=== PATIENT | female | born 1995 | race African-American/Black ===

== ENCOUNTER 2018-09-26 14:30 | Emergency (ER) | payer MEDICAID ==
[~2018-09-26] VITALS: Ht 172.7 cm; Wt 57.6 kg
[~2018-09-26 14:30] MED LIST: ACHD5005 PO; AGM875T PO; BCP; CONCERTA; CYCL10TA9 PO; CYCL5TAB PO; IBUP-1773 PO; MED FOR ACNE; NAPR-243 PO; NITR100C44 PO; ONDA8TAB13 PO; PRD20T PO; PREN1TAB19 PO
--- OUTSIDE RECORDS SUMMARY | 2018-09-26 14:37 | XMS REPORT ---
Author Author YAMINI DILL Organization [facility] Address [address] [place] [address] Care Team Providers Care Insurance Follow Up Specialist Name Role Phone YAMINI DILL Unavailable PROBLEMS Type Condition ICD9-CM Code UDS76-DD Code Onset Dates Condition Status SNOMED Code Problem Physical exam, pre-employment Z02.1 Active [id number] Problem Non-seasonal allergic rhinitis due to pollen J30.1 Active 17688107 Problem ADHD (attention deficit hyperactivity disorder), combined type F90.2 Active [id number] ALLERGIES No Information ENCOUNTERS Encounter Location Date Diagnosis [place] [id number] [place] [address] 19078- 5638 Mar, [place] [address] [place] [id number] [place] [address] 59081- 6567 Mar, Well woman exam with routine gynecological exam Z01.419 ; Screen for STD (sexually transmitted disease) Z11.3 ; Vaginal candidiasis B37.3 and High risk sexual behavior Z72.51 [place] [id number] [place] [address] 29106- 2001 Jan, Visit for TB skin test Z11.1 [facility] [address] [place] [id number] [place] [address] Jan, H. pylori infection A04.8 [place] [id number] [place] [address] 91031- 7396 Jan, Physical exam, pre-employment Z02.1 and Visit for TB skin test Z11.1 [place] [id number] [place] [address] 64037- 8879 Jan, Weight loss R63.4 [place] [address] [place] [id number] [place] [address] 63043- 3480 Jan, Weight loss R63.4 [place] [address] [place] [id number] [place] [address] 99407- 9167 Jan, Weight loss R63.4 ; Diarrhea, unspecified type R19.7 and Nausea R11.0 [place] [address] [place] [id number] [place] [address] 72600- 9725 Oct, Viral gastroenteritis A08.4 ; Fever, unspecified fever cause R50.9 ; Non-seasonal allergic rhinitis due to pollen J30.1 and Influenza A J10.1 [place] [address] [place] [id number] [place] [address] 24909- 2335 Dec, Ingrowing toenail with infection L60.0 [place] [address] [place] [id number] [place] [address] 11704- 6949 Nov, Ingrowing toenail with infection L60.0 [place] [address] [place] [id number] [place] [address] 80213- 2765 Nov, [place] [address] [place] [id number] [place] [address] 14421- 4678 Nov, [place] [address] [place] [id number] [place] [address] 66287- 5019 Nov, ADHD (attention deficit hyperactivity disorder), combined type F90.2 [facility] [id number] [place] [address] 05051 [address] Nov, Sore throat J02.9 and Acute nasopharyngitis (common cold) J00 [place] [address] [place] [id number] [place] [address] 07592- 2116 Oct, [place] [address] [address]- 3946 Aug, [place] [address] [place] [id number] [place] [address] 88664- 5364 Aug, Routine gynecological examination Z01.419 ; Nexplanon in place Z97.5 and Dysuria R30.0 [facility] [address] [address] 6[address] 09 Aug, 2016 [facility] [id number] [place] [address] 75006- 8909 Aug, [facility] [id number] [place] [address] 72336 -2207 Jul, Acute cystitis without hematuria N30.00 [facility] [address] [place] [address] [id number] [place] [address] 21692 -9657 18 Jun, 2016 Dysuria R30.0 and Acute cystitis with hematuria N30.01 [facility] [address] [place] [address] [id number] [place] [address] 66301- 0133 Jun, [facility] [address] [place] [id number] [place] [address] 97381 -7284 Jun, Vaginal yeast infection B37.3 [facility] [address] [place] [id number] [place] [address] 39304- 1186 May, [facility] [address] [place] [address] [id number] [place] [address] 54731 -9854 Apr, Infection B99.9 [facility] [address] [place] [address] 13482- 4499 Apr, [facility] [id number] [place] [address] 05988- 8888 Apr, [facility] [id number] [place] [address] 22186- 6773 Apr, [facility] [address] [place] [id number] [place] [address] 79458- 0079 Apr, [facility] [address] [place] [address] 45758- 1795 Mar, Ingrown toenail L60.0 [facility] [address] [place] [address] 91567- 2484 Mar, [facility] [address] [facility] [id number], [place] [address]- 6817 Mar, [facility] [address] [id number] [place] [address] Mar [facility] [address] [facility] [id number], [place] [address]- 4205 February, Ingrown right big toenail L60.0 [facility] [address] [facility] [id number], [place] [address]- 3553 February, [facility] [address] [facility] [id number], [place] [address]- 1705 February, [facility] [address] [place] [id number] [address]- 6831 February, Ingrowing right great toenail L60.0 and Overweight (BMI 25.0 -29.9) E66.3 [facility] [address] [id number], [place] [address]- 3054 February, [facility] [address] [facility] [id number], [place] [address]- 2252 February, [facility] [address] [id number] [place] [address] February [facility] [address] [id number] [place] [address] February [facility] [address] [facility] [id number], [place] [address]- 0268 Jan, [facility] [address] [facility] [id number], [place] [address]- 6797 Jan, [facility] [address] [facility] [id number], [place] [address]- 1451 Jan, [facility] [address] [place] [id number], [place] [address]- 9925 Jan, [facility] [address], [place] [address]- 9407 Dec, [facility] [id number] [place] [address] 93599- 9318 Dec, [facility] [address], [place] [address] Dec, Vaginal candidiasis B37.3 [facility] [id number] [id number] Dec, [facility] [id number] [place] [address] 99065- 5530 Dec, [facility] [address] [place] [id number] [place] [address] 48220- 6041 Dec, Encounter for test, result unknown Z32.00 [place] [address] [place] [address] 71154- 7096 Oct, Nail, ingrown L60.0 and Infected nailbed of toe L03.039 [facility] [address]65[address] [address]- 7272 Oct, [facility] [address] [place] [id number] [place] [address] 12001- 8546 Oct, [facility] [address], [place] [address]- 8728 Oct, [facility] [address], [place] [address]- 0679 16 Sep, 2015 [facility] [address] [id number] [place] [address] Sep [facility] [address] [id number] [place] [address] Sep [facility] [address] [place] [id number], [place] [address]- 4944 08 Sep, 2015 Frequent urination R35.0 ; Irregular menses N92.6 ; Abdominal cramping R10.9 ; Surveillance of implantable subdermal contraceptive Z30.49 ; Unprotected sexual intercourse Z72.51 and Vaginal itching L29.8 [facility] [address] [id number] [place] [address] Aug [facility] [address]65[address], [place] [address]- 7459 Aug, [facility] [id number] [place] [address] 70691- 4766 Aug, [facility] [address] [place] [id number] [place] [address] 89955- 4292 Jul, [facility] [address] [place] [address] 88219- 2085 Jul, [facility] [address] [place] [id number] [place] [address] 75164- 5452 Jul, Routine follow-up Z39.2 ; Vaginal itching L29.8 ; Leaking of urine R32 ; General counseling and advice for contraceptive management Z30.09 ; Change in vision H53.9 and Evaluation for contraceptive implant Z30.018 [facility] [address] [place] [address] 83487- 2773 Jul, [facility] [address] [place] [address] 48289- 1696 24 Jun, 2015 [facility] [address] [place] [address] 74785- 9988 Jun, [facility] [address], [place] [address]- 9285 16 Jun, 2015 [facility] [address] [place] [address] 74075- 8973 Jun, [facility] [address] [place] [id number] [place] [address] 50007- 6120 Jun, Cough 786.2 [facility] [id number] [place] [address] 02857- 0954 Jun, [facility] [address] [place] [id number] [place] [address] 13394- 7561 15 Jun, 2014 [facility] [address] [facility] [id number], [place] [address]- 5358 14 Jun, 2014 [facility] [address] [facility] [id number], [place] [address]- 3558 14 Jun, 2014 [facility] [address] [facility] [id number], [place] [address]- 2990 Jun, 2014 [facility] [address] [facility] [id number] [place] [address] 57597- 7133 Jun, 2014 [facility] [address] [facility] [id number] [place] [address] 74966- 5726 Jun, 2014 Supervision of normal first V22.0 [facility] [address], [place] [address]- 9089 Jun, 2014 [facility] [id number] [place] [address] 69464- 1046 Jun, 2014 [facility] [address], [place] [address]- 7114 Jun, Supervision of normal first V22.0 [facility] [address], [place] [address]- 3513 May, [facility] [address], [place] [address]- 6132 May, Supervision of normal first V22.0 [facility] [address], [place] [address]- 8665 May, Supervision of normal first V22.0 [facility] [address], [place] [address]- 3676 Apr, Supervision of normal first V22.0 [facility] [address] [place] [id number], [place] [address]- 9503 Apr, [facility] [address], [place] [address]- 6910 Apr, [facility] [address] [facility] [id number][place] 8597 Apr, Supervision of normal first V22.0 [facility] [address] [facility] [id number] [place] [address]- 7606 Apr, [facility] [address] [facility] [id number] [place] [address]- 2147 Apr, Supervision of normal first V22.0 [facility] [address] [id number] [place] [address]- 5222 Mar, [facility] [address] [facility] [id number] [place] [address]- 9263 Mar, Supervision of normal first V22.0 [facility] [address] [facility] [id number] [place] 1017 February, [facility] [address] [facility] [id number], [place] [address]- 3576 February, Supervision of normal first V22.0 [facility] [address] [facility] [id number] [place] [address]- 3680 Jan, [facility] [address] [facility] [id number], [place] [address]- 0225 Jan, [facility] [address] [facility] [id number], [place] [address]- 1985 Dec, [facility] [address] [facility] [id number], [place] [address]- 1244 Dec, [facility] [address] [id number], [place] [address]- 8233 Dec, [facility] [address] [facility] [id number], [place] [address]- 2880 Dec, [facility] [address] [facility] [id number], [place] [address]- 6012 Dec, [facility] [address] [id number] [place] [address]- 3706 16 Dec, 2014 [facility] [place] [facility] [address] [id number] [place] [address]- 2234 11 Dec, 2014 [facility] [place] [facility] [address] [id number] [place] [address]- 0251 11 Dec, 2014 [facility] [place] [facility] [address] [id number] [place] [address]- 7543 10 Dec, 2014 [facility] [place] [facility] [address] [id number] [place] [address]- 3127 10 Dec, 2014 [facility] [place] [facility] [address] [id number] [place] [address]- 4957 10 Dec, 2014 [facility] [place] [facility] [address] [id number] [place] [address]- 7255 10 Dec, 2014 [facility] [place] [facility] [address] [id number] [place] [address]- 9012 06 Dec, 2014 [facility] [place] [facility] [address] [id number] [place] [address]- 2640 Dec, [facility] [place] [facility] [address] [id number] [place] [address]- 1137 Dec, [facility] [place] [facility] [address] [facility] [id number] [place] [address]- 2454 27 Nov, 2014 [facility] [place] [facility] [address] [id number] [place] [address]- 2758 26 Nov, 2014 [facility] [place] [facility] [address] [id number] [place] [address]- 5932 Nov, 2014 [facility] [place] [facility] [address] [id number] [place] [address]- 1032 24 Nov, 2014 [facility] [place] [facility] [address] [id number] [place] [address]- 3309 24 Nov, 2014 [facility] [place] [facility] [address] [id number] [place] [address]- 2997 Nov, 2014 [facility] [place] [facility] [address] [facility] [id number] [place] [address]- 7701 Nov, [facility] [place] [facility] [address] [facility] [id number] [place] [address]- 4456 Nov, 2014 [facility] [place] [facility] [address] [facility] [id number] [place] [address]- 5748 Nov, 2014 [facility] [place] [facility] [address] [facility] [id number] [place] [address]- 1091 Nov, 2014 [facility] [place] [facility] [address] [facility] [id number] [place] [address]- 0893 Nov, [facility] [place] [facility] [address] [facility] [id number] [place] [address]- 5962 Nov, [facility] [place] [facility] [address] [id number] [place] [address]- 6189 Oct, [facility] [place] [facility] [address] [facility] [id number] [place] [address]- 6514 Oct, [facility] [place] [facility] [address] [id number] [place] [address]- 2230 Oct, [facility] [place] [facility] [address] [facility] [id number] [place] [address]- 2308 Oct, [facility] [place] [facility] [address] [facility] [id number] [place] [address]- 9633 Oct, [facility] [place] [facility] [address] [facility] [id number] [place] [address]- 9542 Oct, [facility] [place] [facility] [address] [facility] [id number] [place] [address]- 6332 Sep, [facility] [place] [facility] [address] [facility] [id number] [place] [address]- 5928 Sep, [facility] [place] [facility] [address] [facility] [id number] [place] [address]- 4850 Sep, [facility] [place] [facility] [address] [id number] [place] [address]- 6393 17 Sep, 2014 [facility] [place] [facility] [address] [id number] [place] 4271 Sep, [facility] [place] [facility] [address] [id number] [place] 3816 Sep, [facility] [place] [facility] [address] [id number] [place] [address]- 6037 Sep, [facility] [place] [facility] [address] [id number] [place] 8700 Sep, [facility] [place] [facility] [address] [id number] [place] [address]- 5349 Aug, [facility] [place] [facility] [address] [id number] [place] [address]- 3418 Aug, [facility] [place] [facility] [address] [id number] [place] [address]- 2435 Aug, [facility] [place] [facility] [address] [id number] [place] [address]- 7197 Aug, [facility] [place] [facility] [address] [id number] [place] [address]- 4783 Jul, [facility] [place] [facility] [address] [facility] [id number] [place] [address]- 8129 Jul, [facility] [place] [facility] [address] [id number] [place] [address]- 9358 Jul, [facility] [place] [facility] [address] [id number] [place] [address]- 1525 30 Jun, 2014 [facility] [place] [facility] [address] [id number] [place] [address]- 0106 30 Jun, 2014 [facility] [place] [facility] [address] [id number] [place] [address]- 9854 24 Jun, 2014 [facility] [place] [facility] [address] [id number] [place] [address]- 2447 24 Jun, 2013 [facility] [place] [facility] [address] [id number] [place] [address]- 1776 18 Jun, 2013 [facility] [place] [facility] [address] [id number] [place] [address]- 5402 18 Jun, 2014 [facility] [place] [facility] [address] [id number] [place] [address]- 7760 15 Jun, 2014 [facility] [place] [facility] [address] [id number] [place] [address]- 2774 15 Jun, 2013 [facility] [place] [facility] [address] [id number] [place] [address]- 1839 12 Jun, 2014 [facility] [place] [facility] [address] [id number] [place] [address]- 4059 11 Jun, 2014 [facility] [place] [facility] [address] [id number] [place] [address]- 7970 10 Jun, 2014 [facility] [place] [facility] [address] [id number] [place] [address]- 9547 08 Jun, 2014 [facility] [place] [facility] [address] [id number] [place] [address]- 0605 08 Jun, 2014 [facility] [place] [facility] [address] [id number] [place] [address]- 6140 May, [facility] [place] [facility] [address] [id number] [place] [address]- 7548 May, [facility] [place] [facility] [address] [id number] [place] [address]- 7846 May, [facility] [place] [facility] [address] [id number] [place] [address]- 4821 May, [facility] [place] [facility] [address] [id number] [place] [address]- 2677 May, [facility] [place] [facility] [address] [id number] [place] [address]- 7143 Apr, [facility] [place] [facility] [address] [id number] [place] [address]- 9919 Apr, [facility] [place] [facility] [address] [id number] [place] [address]- 3136 Apr, [facility] [place] [facility] [address] [id number] [place] [address]- 5166 Apr, [facility] [place] [facility] [address] [id number] [place] [address]- 2103 Apr, [facility] [place] [facility] [address] [id number] [place] [address]- 6545 Apr, [facility] [place] [facility] [address] [id number] [place] [address] Apr, [facility] [place] [facility] [address] [id number] [place] [address] Apr, [facility] [place] [facility] [address] [id number] [place] [address] Apr, [facility] [place] [facility] [address] [id number] [place] [address] Apr, [facility] [place] [facility] [address] [id number] [place] [address] Apr, [facility] [place] [facility] [address] [id number] [place] [address] Apr, [facility] [place] [facility] [address] [id number] [place] [address] Apr, [facility] [place] [facility] [address] [id number] [place] [address] Apr, [facility] [place] [facility] [address] [id number] [place] [address]- [address] Apr, [facility] [place] [facility] [address] [id number] [place] [address]- [address] Apr, [facility] [place] [facility] [address] [id number] [place] [address] Apr, [facility] [place] [facility] [address] [id number] [place] [address] Apr, [facility] [place] [facility] [address] [id number] [place] [address] Apr, [facility] [place] [facility] [address] [id number] [place] [address] 79[address] Mar, [facility] [place] [facility] [address] [id number] [place] [address]- [address] Mar, [facility] [place] [facility] [address] [id number] [place] [address]40 Mar, [facility] [place] [facility] [address] [id number] [place] [address] 8095 Mar, [facility] [place] [facility] [address] [id number] [place] [address]- [address] Mar, [facility] [place] [facility] [address] [id number] [place] [address] 69[address] Mar, [facility] [place] [facility] [address] [id number] [place] [address]- [address] Mar, [facility] [place] [facility] [address] [id number] [place] [address]- [address] Mar, [facility] [place] [facility] [address] [id number] [place] [address]- [address] Mar, [facility] [place] [facility] [address] [id number] [place] [address]- [address] Mar, [facility] [place] [facility] [address] [id number] [place] [address]- [address] Mar, [facility] [place] [facility] [address] [id number] [place] [address]- [address] Mar, [facility] [place] [facility] [address] [id number] [place] [address]- [address] Mar, [facility] [place] [facility] [address] [id number] [place] [address]- [address] Mar, [facility] [place] [facility] [address] [id number] [place] [address] Mar, [facility] [place] [facility] [address] [id number] [place] [address] February, [facility] [place] [facility] [address] [id number] [place] [address]- [address] February, [facility] [place] [facility] [address] [id number] [place] [address]- [address] February, [facility] [place] [facility] [address] [id number] [place] [address] February, [facility] [place] [facility] [address] [id number] [place] [address]- [address] February, [facility] [place] [facility] [address] [id number] [place] [address]- [address] February, [facility] [place] [facility] [address] [id number] [place] [address]- [address] February, [facility] [place] [facility] [address] [id number] [place] [address] February, [facility] [place] [facility] [address] [id number] [place] [address]- [address] February, [facility] [place] [facility] [address] [id number] [place] [address] February, [facility] [place] [facility] [address] [id number] [place] [address]- [address] Jan, [facility] [place] [facility] [address] [id number] [place] [address]- [address] Jan, [facility] [place] [facility] [address] [id number] [place] [address]- [address] Jan, [facility] [place] [facility] [address] [id number] [place] [address]- [address] Jan, [facility] [place] [facility] [address] [id number] [place] [address]- [address] Jan, [facility] [address] [id number] [place] [address]- [address] Jan, [facility] [address] [id number] [place] [address]- [address] Dec, [facility] [address] [id number] [place] [address]- 74[address] Dec, [facility] [address] [id number] [place] [address]- [address] Oct, [facility] [address] [id number] [place] [address]- [address] Oct, [facility] [address] [id number] [place] [address]- [address] Sep, [facility] [address] [id number] [place] [address] Sep, [facility] [address] [address] [id number] [place] [address] Sep, [facility] [address] [id number] [place] [address] Sep, [facility] [address] [facility] [id number] [place] [address] Sep, [facility] [address] [id number] [place] [address] Aug, [facility] [address] [id number] [place] [address] Aug, [facility] [place] [facility] [address] [id number] [place] [address] Aug, [facility] [place] [facility] [address] [id number] [place] [address] Aug, [facility] [address] [id number] [place] [address] Aug, [facility] [place] [facility] [address] [id number] [place] [address] Aug, [facility] [place] [facility] [address] [id number] [place] [address] Aug, [facility] [place] [facility] [address] [id number] [place] [address] Aug, [facility] [place] [facility] [address] [id number] [place] [address] Aug, [facility] [place] [facility] [address] [id number] [place] [address] Aug, [facility] [place] [facility] [address] [id number] [place] [address] Aug, [facility] [place] [facility] [address] [id number] [place] [address] Jul, [facility] [place] [facility] [address] [id number] [place] [address] Jul, [facility] [place] [facility] [address] [id number] [place] [address] Jul, [facility] [place] [facility] [address] [id number], [place] [address] Jul, [facility] [place] [facility] [address] [id number], [place] [address] February, [facility] [place] [facility] [address] [id number], [place] [address] Jan, [facility] [place] [facility] [address] [id number] [place] [address] 18 Jan, 2013 [facility] [place] [facility] [address] [id number], [place] [address] Jan, [facility] [place] [facility] [address] [id number], [place] [address] 31 Dec, 2012 [facility] [place] [facility] [address] [id number], [place] [address] 30 Dec, 2012 [facility] [address] [id number] [place] [address] 28 Dec, 2012 [facility] [place] [facility] [address] [id number] [place] [address] 25 Dec, 2012 [facility] [place] [facility] [address] [id number] [place] [address] 05 Dec, 2012 [facility] [place] [facility] [address] [id number] [place] [address] 31 Oct, 2012 [facility] [place] [facility] [address] [id number] [place] [address] 30 Oct, 2012 [facility] [place] [facility] [address] [id number] [place] [address] Oct, [facility] [address] [facility] [id number] [place] [address] Oct, [facility] [place] [facility] [address] [id number] [place] [address] 15 Sep, 2012 [facility] [address] [id number] [place] [address] Sep, [facility] [place] [facility] [address] [facility] [id number] [place] [address] Sep, [facility] [place] [facility] [address] [id number] [place] [address] Aug, [facility] [place] [facility] [address] [id number] [place] [address] Aug, [facility] [place] [facility] [address] [id number] [place] [address] Aug, [facility] [place] [facility] [address] [id number] [place] [address] Aug, [facility] [place] [facility] [address] [facility] [id number] [place] [address] Aug, [facility] [place] [facility] [address] [facility] [id number], [place] [address] Jul, [facility] [address] [facility] [id number], [place] [address] Jul, [facility] [address] [facility] [id number], [place] [address] Jul, [facility] [address] [facility] [id number], [place] [address] Jul, [facility] [address] [facility] [id number], [place] [address] Jul, [facility] [id number], [place] [address] Jul, [facility] [address] [id number], [place] [address] Dec, [facility] [id number], [place] [address] Dec, [facility] [id number], [place] [address] 16 Jun, 2009 [facility] [id number], [place] [address] Mar, [facility] [address] [id number], [place] [address] 10 Jun, 2008 IMMUNIZATIONS No Known Immunizations SOCIAL HISTORY Never Assessed REASON FOR VISIT PLAN OF CARE VITAL SIGNS MEDICATIONS Unknown Medications RESULTS No Results PROCEDURES No Known procedures INSTRUCTIONS MEDICATIONS ADMINISTERED No Known Medications MEDICAL (GENERAL) HISTORY Type Description Date Medical History High risk sexual behavior Medical History attention deficit hyperactivity disorder Surgical History tonsillectomy Surgical History tubes in ears Surgical History Dental Sugery Hospitalization History childbirth only
--- OUTSIDE RECORDS SUMMARY | 2018-09-26 14:37 | XMS REPORT ---
Author Author LES DANIEL [facility] Address [address] [place] [address] Care Team Providers Care Documentation Supervisor Name Role Phone SOFIA SALDANAY Unavailable PROBLEMS Type Condition ICD9-CM Code [id number] Code Onset Dates Condition Status SNOMED Code Problem Physical exam, pre-employment Z02.1 Active 160673348 Problem Non-seasonal allergic rhinitis due to pollen J30.1 Active 83095438 Problem ADHD (attention deficit hyperactivity disorder), combined type F90.2 Active [id number] ALLERGIES No Information ENCOUNTERS Encounter Location Date Diagnosis [id number] [place] [address]57- 8554 Aug, [id number] [place] [address] 27347- 8754 Mar, [place] [id number] [place] [address] 60795- 7715 Mar, Well woman exam with routine gynecological exam Z01.419 ; Screen for STD (sexually transmitted disease) Z11.3 ; Vaginal candidiasis B37.3 and High risk sexual behavior Z72.51 [id number] [place] [address] 30696- 4151 Jan, Visit for TB skin test Z11.1 [facility] [id number] [place] [address] Jan, H. pylori infection A04.8 [id number] [place] [address] 29465- 2081 Jan, Physical exam, pre-employment Z02.1 and Visit for TB skin test Z11.1 [place] [id number] [place] [address] 10931- 0950 Jan, Weight loss R63.4 [place] [address] [place] [id number] [place] [address] 84859- 7339 Jan, Weight loss R63.4 [place] [address] [address]- 1017 Jan, Weight loss R63.4 ; Diarrhea, unspecified type R19.7 and Nausea R11.0 [place] [address] 59245- 9710 Oct, Viral gastroenteritis A08.4 ; Fever, unspecified fever cause R50.9 ; Non-seasonal allergic rhinitis due to pollen J30.1 and Influenza A J10.1 [place] [address] [place] [id number] [place] [address] 34742- 4917 Dec, Ingrowing toenail with infection L60.0 [place] [address] 17105- 1398 Nov, Ingrowing toenail with infection L60.0 [place] [address] [place] [id number] [place] [address] 76020- 0960 Nov, [place] [address] [place] [id number] [place] [address] 75695- 1959 Nov, [place] [address] [place] [id number] [place] [address] 44851- 7466 Nov, ADHD (attention deficit hyperactivity disorder), combined type F90.2 [facility] [id number] [place] [address] Nov, Sore throat J02.9 and Acute nasopharyngitis (common cold) J00 [place] [address] [place] [id number] [place] [address] 38151- 8334 Oct, [place] [address] [place] [id number] [place] [address] 18918- 9147 Aug, [place] [address] [place] [id number] [place] [address] 96065- 5543 17 Aug, 2016 Routine gynecological examination Z01.419 ; Nexplanon in place Z97.5 and Dysuria R30.0 [facility] [id number] [place] [address] 43254- 4958 09 Aug, 2016 [facility] [id number] [place] [address] 70229- 6546 Aug, [facility] [id number] [place] [address] 03848 -6894 Jul, Acute cystitis without hematuria N30.00 [facility] [address] [address]758 -3886 18 Jun, 2016 Dysuria R30.0 and Acute cystitis with hematuria N30.01 [facility] [id number] [place] [address] 79147- 3376 14 Jun, 2016 [facility] [address] [id number] [place] [address] 33605 -4423 Jun, Vaginal yeast infection B37.3 [place] [address] [place] [id number] [place] [address] 06453- 1683 May, [facility] [id number] [place] [address] 07276 -1255 Apr, Infection B99.9 [facility] [address] [place] [address] [id number] [place] [address] 19261- 9654 Apr, [facility] [id number] [place] [address] 61796- 4170 Apr, [facility] [address] [place] [address] [id number] [place] [address] 56767- 6857 Apr, [facility] [address] [place] [address] [id number] [place] [address] 02558- 0097 Apr, [facility] [address] [place] [address] [id number] [place] [address] 12903- 5156 Mar, Ingrown toenail L60.0 [facility] [address] [address]- 3186 Mar, [facility] [address], [place] [address]- 1380 Mar, [facility] [address] [id number] [place] [address] Mar [facility] [address], [place] [address]- 3469 February, Ingrown right big toenail L60.0 [facility] [address], [place] [address]- 6675 February, [facility] [address], [place] [address]- 8748 February, [facility] [address], [place] [address]- 6623 February, Ingrowing right great toenail L60.0 and Overweight (BMI 25.0 -29.9) E66.3 [facility] [address], [place] [address]- 5329 February, [facility] [address], [place] [address]- 3523 February, [facility] [address] [id number] [place] [address] February [facility] [address] [id number] [place] [address] February [facility] [id number] [address]- 2860 Jan, [facility] [address], [place] [address]- 7409 Jan, [facility] [id number], [place] [address]- 8187 Jan, [facility] [id number] [address]- 5056 Jan, [facility] [address], [place] [address]- 4133 Dec, [facility] [address], [place] [address]- 4369 Dec, [facility] [id number] [place] [address] 31291 -1369 Dec, Vaginal candidiasis B37.3 [facility] [id number] [place] [id number] Dec, [facility] [address] [id number] [place] [address] 79981- 5710 Dec, [facility] [id number] [place] [address] 99575- 7280 Dec, Encounter for test, result unknown Z32.00 [facility] [id number] [place] [address] 54947- 1088 Oct, Nail, ingrown L60.0 and Infected nailbed of toe L03.039 [facility] [id number] [place] [address] 11346- 2728 Oct, [facility] [id number] [place] [address] 57859- 5408 Oct, [facility] [address], [place] [address]- 5240 Oct, [facility] [address], [place] [address]- 9732 16 Sep, 2015 [facility] [address] [id number] [place] [address] Sep [facility] [address] [id number] [place] [address] Sep [facility] [address], [place] [address]- 1062 08 Sep, 2015 Frequent urination R35.0 ; Irregular menses N92.6 ; Abdominal cramping R10.9 ; Surveillance of implantable subdermal contraceptive Z30.49 ; Unprotected sexual intercourse Z72.51 and Vaginal itching L29.8 [facility] [address] [id number] [place] [address] Aug [facility] [id number] [place] [address] 06177- 0692 Aug, [facility] [address] [id number] [place] [address] 77661- 9966 Aug, [facility] [id number] [place] [address] 79541- 7841 Jul, [facility] [address] [address] [id number] [place] [address] 03300- 9810 Jul, [facility] [address] [address] [id number] [place] [address] 30909- 0828 Jul, Routine follow-up Z39.2 ; Vaginal itching L29.8 ; Leaking of urine R32 ; General counseling and advice for contraceptive management Z30.09 ; Change in vision H53.9 and Evaluation for contraceptive implant Z30.018 [facility] [id number] [place] [address] 96444- 7775 Jul, [facility] [address], [place] [address]- 1971 Jun, [facility] [id number] [place] [address] 47799- 9259 Jun, [facility] [id number] [place] [address] 91561- 1970 Jun, [facility] [address] [id number] [place] [address] 37677- 2039 Jun, [facility] [id number] [place] [address] 81425- 4696 Jun, Cough 786.2 [facility] [address] [place] [id number] [place] [address] 95246- 0792 15 Jun, 2014 [facility] [address] [facility] [id number], [place] [address]- 2044 15 Jun, 2014 [facility] [address] [facility] [id number], [place] [address]- 6023 14 Jun, 2014 [facility] [address] [facility] [id number], [place] [address]- 2828 14 Jun, 2014 [facility] [address] [facility] [id number] [address]- 2087 11 Jun, 2014 [facility] [address] [facility] [id number] [place] [address] 24446- 0007 Jun, 2014 [facility] [id number], [place] [address]- 7852 Jun, 2014 Supervision of normal first V22.0 [facility] [address], [place] [address]- 8214 Jun, 2014 [facility] [address] [facility] [id number], [place] [address]- 8087 Jun, 2014 [facility] [address], [place] [address]- 6301 Jun, Supervision of normal first V22.0 [facility] [address], [place] [address]- 9890 May, [facility] [id number], [place] [address]- 7372 May, Supervision of normal first V22.0 [facility] [id number] [address]- 8647 May, Supervision of normal first V22.0 [facility] [id number], [place] [address]- 9261 Apr, Supervision of normal first V22.0 [facility] [id number], [place] [address]- 4908 Apr, [facility] [address] [facility] [id number], [place] [address]- 5108 Apr, [facility] [address] [facility] [id number] 4273 Apr, Supervision of normal first V22.0 [facility] [address] [facility] [id number] [place] [address]- 0600 Apr, [facility] [address] [facility] [id number], [place] [address]- 9255 Apr, Supervision of normal first V22.0 [facility] [address] [id number] [place] [address]- 4920 Mar, [facility] [address] [facility] [id number][place] 7031 Mar, Supervision of normal first V22.0 [facility] [address] [facility] [id number], [place] [address]- 2659 February, [facility] [address] [facility] [id number], [place] [address]- 8838 February, Supervision of normal first V22.0 [facility] [address] [facility] [id number] 6855 Jan, [facility] [address] [facility] [id number], [place] [address]- 5731 Jan, [facility] [address] [facility] [id number], [place] [address]- 3334 Dec, [facility] [address] [id number]- 8106 Dec, [facility] [address] [facility] [id number]27[place]- 7235 Dec, [facility] [address] [facility] [id number], [place] [address]- 8273 Dec, [facility] [place] [facility] [address] [id number] [place] [address]- 3076 16 Dec, 2014 [facility] [place] [facility] [address] [id number] [place] [address]- 4255 16 Dec, 2014 [facility] [place] [facility] [address] [id number] [place] [address]- 0985 11 Dec, 2014 [facility] [place] [facility] [address] [id number] [place] [address]- 4714 11 Dec, 2014 [facility] [place] [facility] [address] [id number] [place] [address]- 1443 10 Dec, 2014 [facility] [place] [facility] [address] [id number] [place] [address]- 3584 10 Dec, 2014 [facility] [place] [facility] [address] [id number] [place] [address]- 2456 10 Dec, 2014 [facility] [place] [facility] [address] [id number] [place] [address]- 6016 10 Dec, 2014 [facility] [place] [facility] [address] [id number] [place] [address]- 0662 06 Dec, 2014 [facility] [place] [facility] [address] [id number] [place] [address]- 6383 Dec, [facility] [place] [facility] [address] [id number] [place] [address]- 6605 Dec, [facility] [place] [facility] [address] [id number] [place] [address]- 4201 27 Nov, 2014 [facility] [place] [facility] [address] [id number] [place] [address]- 4425 Nov, 2014 [facility] [place] [facility] [address] [id number] [place] [address]- 1892 Nov, [facility] [place] [facility] [address] [id number] [place] [address]- 1356 24 Nov, 2014 [facility] [place] [facility] [address] [id number] [place] [address]- 3053 Nov, [facility] [place] [facility] [address] [id number] [place] [address]- 3492 Nov, [facility] [place] [facility] [address] [facility] [id number] [place] [address]- 3786 Nov, 2014 [facility] [place] [facility] [address] [facility] [id number] [place] [address]- 0991 Nov, 2014 [facility] [place] [facility] [address] [facility] [id number] [place] [address]- 1750 Nov, 2014 [facility] [place] [facility] [address] [id number] [place] [address]- 6154 Nov, [facility] [place] [facility] [address] [facility] [id number] [place] [address]- 6523 Nov, [facility] [place] [facility] [address] [facility] [id number] [place] [address]- 7037 Nov, [facility] [place] [facility] [address] [facility] [id number] [place] [address]- 0212 Oct, [facility] [place] [facility] [address] [facility] [id number] [place] [address]- 0141 Oct, [facility] [place] [facility] [address] [facility] [id number] [place] [address]- 5012 Oct, [facility] [place] [facility] [address] [facility] [id number] [place] [address]- 1575 Oct, [facility] [place] [facility] [address] [facility] [id number], [place] [address]- 8613 Oct, [facility] [place] [facility] [address] [facility] [id number], [place] [address]- 0273 Oct, [facility] [place] [facility] [address] [facility] [id number] [place] [address]- 2396 Sep, [facility] [place] [facility] [address] [facility] [id number], [place] [address]- 6502 Sep, [facility] [place] [facility] [address] [id number] [place] [address]- 5603 18 Sep, 2014 [facility] [place] [facility] [address] [id number] [place] 9216 Sep, [facility] [place] [facility] [address] [id number] [place]- 6696 Sep, [facility] [place] [facility] [address] [id number] [place] [address]- 7996 Sep, [facility] [place] [facility] [address] [id number] [place] 8252 Sep, [facility] [place] [facility] [address] [id number] [place] [address]- 1669 Sep, [facility] [place] [facility] [address] [id number] [place] [address]- 9613 Aug, [facility] [place] [facility] [address] [id number] [place] [address]- 8142 Aug, [facility] [place] [facility] [address] [id number] [place] [address]- 1387 Aug, [facility] [place] [facility] [address] [id number] [place] [address]- 7867 Aug, [facility] [place] [facility] [address] [id number] [place] [address]- 8915 Jul, [facility] [place] [facility] [address] [id number] [place] [address]- 8484 Jul, [facility] [place] [facility] [address] [id number] [place] [address]- 7779 Jul, [facility] [place] [facility] [address] [id number] [place] [address]- 1606 Jun, [facility] [place] [facility] [address] [id number] [place] [address]- 2154 30 Jun, 2014 [facility] [place] [facility] [address] [id number] [place] [address]- 5035 24 Jun, 2013 [facility] [place] [facility] [address] [id number] [place] [address]- 0341 24 Jun, 2013 [facility] [place] [facility] [address] [id number] [place] [address]- 2861 18 Jun, 2013 [facility] [place] [facility] [address] [id number] [place] [address]- 5673 18 Jun, 2013 [facility] [place] [facility] [address] [id number] [place] [address]- 5965 15 Jun, 2013 [facility] [place] [facility] [address] [id number] [place] [address]- 3568 15 Jun, 2013 [facility] [place] [facility] [address] [id number] [place] [address]- 1920 12 Jun, 2013 [facility] [place] [facility] [address] [id number] [place] [address]- 7094 11 Jun, 2013 [facility] [place] [facility] [address] [id number] [place] [address]- 7932 10 Jun, 2013 [facility] [place] [facility] [address] [id number] [place] [address]- 3606 08 Jun, 2013 [facility] [place] [facility] [address] [id number] [place] [address]- 3217 08 Jun, 2014 [facility] [place] [facility] [address] [id number], [place] [address]- 4961 20 May, 2014 [facility] [place] [facility] [address] [id number], [place] [address]- 4672 May, [facility] [place] [facility] [address] [id number] [place] [address]- 3753 May, [facility] [place] [facility] [address] [id number] [place] [address]- 1127 May, [facility] [place] [facility] [address] [id number] [place] [address]- 6209 May, [facility] [place] [facility] [address] [id number] [place] [address]- 0988 Apr, [facility] [place] [facility] [address] [id number] [place] [address]- 4826 Apr, [facility] [place] [facility] [address] [id number] [place] [address]- 7656 Apr, [facility] [place] [facility] [address] [id number] [place] [address]- 0465 Apr, [facility] [place] [facility] [address] [id number] [place] [address] Apr, [facility] [place] [facility] [address] [id number] [place] [address] Apr, [facility] [place] [facility] [address] [id number] [place] [address] Apr, [facility] [place] [facility] [address] [id number] [place] [address] Apr, [facility] [place] [facility] [address] [id number] [place] [address] Apr, [facility] [place] [facility] [address] [id number] [place] [address] Apr, [facility] [place] [facility] [address] [id number] [place] [address] Apr, [facility] [place] [facility] [address] [id number] [place] [address] Apr, [facility] [place] [facility] [address] [id number] [place] [address] Apr, [facility] [place] [facility] [address] [id number] [place] [address] Apr, [facility] [place] [facility] [address] [id number] [place] [address]- [address] Apr, [facility] [place] [facility] [address] [id number] [place] [address] Apr, [facility] [place] [facility] [address] [id number] [place] [address] Apr, [facility] [place] [facility] [address] [id number] [place] [address] Apr, [facility] [place] [facility] [address] [id number] [place] [address]- [address] Apr, [facility] [place] [facility] [address] [id number] [place] [address] Mar, [facility] [place] [facility] [address] [id number] [place] [address] Mar, [facility] [place] [facility] [address] [id number] [place] [address] Mar, [facility] [place] [facility] [address] [id number] [place] [address]- 67[address] Mar, [facility] [place] [facility] [address] [id number] [place] [address]- 7064 Mar, [facility] [place] [facility] [address] [id number] [place] [address] Mar, [facility] [place] [facility] [address] [id number] [place] [address]69 Mar, [facility] [place] [facility] [address] [id number] [place] [address] Mar, [facility] [place] [facility] [address] [id number] [place] [address]- [address] Mar, [facility] [place] [facility] [address] [id number] [place] [address] Mar, [facility] [place] [facility] [address] [id number] [place] [address]- 47[address] Mar, [facility] [place] [facility] [address] [id number] [place] [address]- [address] Mar, [facility] [place] [facility] [address] [id number] [place] [address]- [address] Mar, [facility] [place] [facility] [address] [id number] [place] [address] Mar, [facility] [place] [facility] [address] [id number] [place] [address] Mar, [facility] [place] [facility] [address] [id number] [place] [address] February, [facility] [place] [facility] [address] [id number] [place] [address]- [address] February, [facility] [place] [facility] [address] [id number] [place] [address]- 115[address] February, [facility] [place] [facility] [address] [id number] [place] [address] February, [facility] [place] [facility] [address] [id number] [place] [address] February, [facility] [place] [facility] [address] [id number] [place] [address] February, [facility] [place] [facility] [address] [id number] [place] [address]- [address] February, [facility] [place] [facility] [address] [id number] [place] [address]- [address] February, [facility] [place] [facility] [address] [id number] [place] [address] February, [facility] [place] [facility] [address] [id number] [place] [address]- [address] February, [facility] [place] [facility] [address] [id number] [place] [address]- [address] Jan, [facility] [place] [facility] [address] [id number] [place] [address]- [address] Jan, [facility] [place] [facility] [address] [id number] [place] [address] Jan, [facility] [place] [facility] [address] [id number] [place] [address]- [address] Jan, [facility] [address] [id number] [place] [address] Jan, [facility] [place] [facility] [address] [id number] [place] [address]- [address] Jan, [facility] [address] [id number] [place] [address] 84[address] Dec, [facility] [place] [facility] [address] [id number] [place] [address] Dec, [facility] [address] [id number] [place] [address] Oct, [facility] [address] [id number] [place] [address] Oct, [facility] [address] [id number] [place] [address] Sep, [facility] [address] [id number] [place] [address] Sep, [facility] [address] [id number] [place] [address] Sep, [facility] [address] [id number] [place] [address] Sep, [facility] [address] [id number] [place] [address] Sep, [facility] [address] [id number] [place] [address] Aug, [facility] [place] [facility] [address] [id number] [place] [address] Aug, [facility] [place] [facility] [address] [id number] [place] [address] Aug, [facility] [place] [facility] [address] [id number] [place] [address] Aug, [facility] [place] [facility] [address] [id number] [place] [address] Aug, [facility] [place] [facility] [address] [id number] [place] [address] Aug, [facility] [place] [facility] [address] [id number] [place] [address] Aug, [facility] [place] [facility] [address] [id number] [place] [address] Aug, [facility] [place] [facility] [address] [id number] [place] [address] Aug, [facility] [place] [facility] [address] [id number] [place] [address] Aug, [facility] [place] [facility] [address] [id number] [place] [address] Aug, [facility] [place] [facility] [address] [id number] [place] [address] Jul, [facility] [place] [facility] [address] [id number] [place] [address] Jul, [facility] [place] [facility] [address] [id number] [place] [address] Jul, [facility] [place] [facility] [address] [id number] [place] [address] Jul, [facility] [place] [facility] [address] [id number], [place] [address] February, [facility] [place] [facility] [address] [id number] [place] [address] Jan, [facility] [place] [facility] [address] [id number] [place] [address] 18 Jan, 2013 [facility] [place] [facility] [address] [id number] [place] [address] Jan, [facility] [place] [facility] [address] [id number] [place] [address] 31 Dec, 2012 [facility] [address] [id number] [place] [address] 30 Dec, 2012 [facility] [address] [id number] [place] [address] 28 Dec, 2012 [facility] [address] [id number] [place] [address] 25 Dec, 2012 [facility] [address] [id number] [place] [address] 05 Dec, 2012 [facility] [address] [id number] [place] [address] 31 Oct, 2012 [facility] [address] [id number] [place] [address] Oct, [facility] [address] [id number] [place] [address] Oct, [facility] [address] [id number] [place] [address] Oct, [facility] [address] [id number] [place] [address] Sep, [facility] [address] [id number] [place] [address] Sep, [facility] [address] [id number] [place] [address] Sep, [facility] [place] [facility] [address] [id number] [place] [address] Aug, [facility] [place] [facility] [address] [id number] [place] [address] Aug, [facility] [place] [facility] [address] [id number] [place] [address] Aug, [facility] [address] [id number] [place] [address] Aug, [facility] [place] [facility] [address] [facility] [id number], [place] [address] Aug, [facility] [address] [facility] [id number], [place] [address] Jul, [facility] [address] [facility] [id number], [place] [address] Jul, [facility] [address] [facility] [id number], [place] [address] Jul, [facility] [address] [facility] [id number][place] [address] Jul, [facility] [id number] [address] Jul, [facility] [id number] [address] [address] Jul, [facility] [id number], [place] [address] Dec, [facility] [id number], [place] [address] Dec, [facility] [id number], [place] [address] 16 Jun, 2009 [facility] [id number], [place] [address] Mar, [facility] [id number], [place] [address] 10 Jun, 2008 IMMUNIZATIONS No Known Immunizations [...]
--- OUTSIDE RECORDS SUMMARY | 2018-09-26 14:38 | XMS REPORT ---
Author AZAM Booth [facility] Address [address] [place] [address] Care Team Providers Care Chromium Plater Name Role Phone LALO AZAM Unavailable PROBLEMS Type Condition ICD9-CM Code [id number] Code Onset Dates Condition Status SNOMED Code Problem Physical exam, pre-employment Z02.1 Active [id number] Problem Non-seasonal allergic rhinitis due to pollen J30.1 Active 99328127 Problem ADHD (attention deficit hyperactivity disorder), combined type F90.2 Active [id number] ALLERGIES No Information ENCOUNTERS Encounter Location Date Diagnosis [id number] [place] [address] 71859- 6511 Mar, [place] [id number] [place] [address] 80820- 6785 Mar, Well woman exam with routine gynecological exam Z01.419 ; Screen for STD (sexually transmitted disease) Z11.3 ; Vaginal candidiasis B37.3 and High risk sexual behavior Z72.51 [id number] [place] [address] 09813- 0610 Jan, Visit for TB skin test Z11.1 [facility] [id number] [place] [address] Jan, H. pylori infection A04.8 [address] [address] Jan, Physical exam, pre-employment Z02.1 and Visit for TB skin test Z11.1 [place] [id number] [place] [address] 93398- 7834 Jan, Weight loss R63.4 [place] [id number] [place] [address] 63361- 1172 Jan, Weight loss R63.4 [place] [address] [place] [id number] [place] [address] 08595- 8473 Jan, Weight loss R63.4 ; Diarrhea, unspecified type R19.7 and Nausea R11.0 [place] [address] [place] [id number] [place] [address] 62599- 5684 Oct, Viral gastroenteritis A08.4 ; Fever, unspecified fever cause R50.9 ; Non-seasonal allergic rhinitis due to pollen J30.1 and Influenza A J10.1 [place] [address] [place] [id number] [place] [address] 74868- 8839 Dec, Ingrowing toenail with infection L60.0 [place] [address] [place] [id number] [place] [address] 08639- 0710 Nov, Ingrowing toenail with infection L60.0 [place] [address] 77991- 8755 Nov, [place] [address] [place] [id number] [place] [address] 41592- 2252 Nov, [place] [address] 08568- 6258 Nov, ADHD (attention deficit hyperactivity disorder), combined type F90.2 [facility] [id number] [place] [address] 27776 -4298 Nov, Sore throat J02.9 and Acute nasopharyngitis (common cold) J00 [place] [address] [place] [id number] [place] [address] 74521- 8111 Oct, [place] [address] 50805- 5132 Aug, [place] [address] [place] [id number] [place] [address] 83919- 9716 Aug, Routine gynecological examination Z01.419 ; Nexplanon in place Z97.5 and Dysuria R30.0 [facility] [address] [address] 8[address] 09 Aug, 2016 [facility] [id number] [place] [address] 20796- 3913 Aug, [facility] [place] [facility] [id number] [place] [address] 33968 -6710 Jul, Acute cystitis without hematuria N30.00 [facility] [place] [facility] [id number] [place] [address] 61531 -0963 18 Jun, 2016 Dysuria R30.0 and Acute cystitis with hematuria N30.01 [facility] [id number] [place] [address] 86612- 8209 14 Jun, 2016 [facility] [id number] [place] [address] 91541 -2248 Jun, Vaginal yeast infection B37.3 [facility] [id number] [place] [address] 63174- 5489 May, [facility] [place] [facility] [id number] [place] [address] 01245 -9710 Apr, Infection B99.9 [facility] [id number] [place] [address] 07585- 0027 Apr, [facility] [id number] [place] [address] 54732- 9530 Apr, [facility] [id number] [place] [address] 29698- 0138 Apr, [facility] [id number] [place] [address] 26783- 7714 Apr, [facility] [id number] [place] [address] 46173- 3399 Mar, Ingrown toenail L60.0 [facility] [id number] [place] [address] 35758- 0441 Mar, [facility] [address] [facility] [id number] [address]- 5363 Mar, [facility] [address] [id number] [place] [address] Mar [facility] [address] [facility] [id number] [address]- 5250 February, Ingrown right big toenail L60.0 [facility] [id number] [address] 5539 February, [facility] [id number] [address]- 5188 February, [facility] [id number] [address]- 3388 February, Ingrowing right great toenail L60.0 and Overweight (BMI 25.0 -29.9) E66.3 [facility] [id number] [address]- 3378 February, [facility] [id number] [address] 8820 February, [facility] [address] [id number] [place] [address] February [facility] [address] [id number] [place] [address] February [facility] [id number] [address] 1937 Jan, [facility] [address] [facility] [id number] [address]- 9398 Jan, [facility] [address] [facility] [id number] [address]- 3419 Jan, [facility] [id number] [address]- 8279 Jan, [facility] [address] [address]- 0523 Dec, [facility] [id number] [place] [address] 26890- 3862 Dec, [facility] [place] [facility] [id number] [place] [address] 81280 -9246 Dec, Vaginal candidiasis B37.3 [facility] [id number] [id number] Dec, [facility] [id number] [place] [address] 06596- 3692 Dec, [facility] [address] [place] [id number] [place] [address] 12448- 1004 Dec, Encounter for test, result unknown Z32.00 [facility] [address] [place] [id number] [place] [address] 61459- 7932 Oct, Nail, ingrown L60.0 and Infected nailbed of toe L03.039 [facility] [id number] [place] [address] 58970- 4189 Oct, [facility] [address] [address] [id number] [place] [address] 45846- 3174 Oct, [facility] [id number] [place] [address] 07338- 4541 Oct, [facility] [id number] [place] [address] 15519- 0339 16 Sep, 2015 [facility] [place] [facility] [address] [id number] [place] [address] Sep [facility] [place] [facility] [address] [id number] [place] [address] Sep [facility] [address] [address]- 0013 08 Sep, 2015 Frequent urination R35.0 ; Irregular menses N92.6 ; Abdominal cramping R10.9 ; Surveillance of implantable subdermal contraceptive Z30.49 ; Unprotected sexual intercourse Z72.51 and Vaginal itching L29.8 [facility] [place] [facility] [place] [facility] [id number] [place] [address] Aug [facility] [id number] [place] [address] 74211- 9660 Aug, [facility] [id number] [place] [address] 37488- 6146 Aug, [facility] [id number] [place] [address] 14186- 3257 Jul, [facility] [id number] [place] [address] 51818- 2512 Jul, [facility] [id number] [place] [address] 12470- 2711 Jul, Routine follow-up Z39.2 ; Vaginal itching L29.8 ; Leaking of urine R32 ; General counseling and advice for contraceptive management Z30.09 ; Change in vision H53.9 and Evaluation for contraceptive implant Z30.018 [facility] [id number] [place] [address] 42063- 8209 Jul, [facility] [id number] [place] [address] 97117- 9149 24 Jun, 2015 [facility] [id number] [place] [address] 10105- 2410 Jun, [facility] [id number] [place] [address] 78811- 3324 16 Jun, 2015 [facility] [id number] [place] [address] 52225- 2102 15 Jun, 2015 [facility] [id number] [place] [address] 30527- 7995 15 Jun, 2015 Cough 786.2 [facility] [id number] [place] [address] 89059- 2195 15 Jun, 2015 [facility] [id number] [place] [address] 63329- 5593 15 Jun, 2014 [facility] [address] [facility] [id number][place] [address]- 3195 14 Jun, 2014 [facility] [address] [facility] [id number][place] [address]- 6977 14 Jun, 2014 [facility] [address] [facility] [id number][place] [address]- 1590 Jun, 2014 [facility] [address] [facility] [id number][place] [address] 2542 Jun, 2014 [facility] [address] [facility] [id number][place] [address]- 3244 Jun, 2014 Supervision of normal first V22.0 [facility] [id number] [address]- 6403 Jun, 2014 [facility] [id number] [address]- 4621 Jun, 2014 [facility] [address] [facility] [id number][place] [address]- 8758 Jun, Supervision of normal first V22.0 [facility] [id number] [place] [address] 62228- 7267 May, Supervision of normal first V22.0 [facility] [id number] [address]- 7899 May, [facility] [address] [facility] [id number][place] [address]- 8624 May, Supervision of normal first V22.0 [facility] [address] [facility] [id number]- 9972 Apr, Supervision of normal first V22.0 [facility] [address] [facility] [id number][place] [address]- 8583 Apr, [facility] [id number] [address]- 9880 Apr, [facility] [address] [facility] [id number] 115[place]- 4906 Apr, Supervision of normal first V22.0 [facility] [address] [facility] [id number][place] [address]- 7326 Apr, [facility] [address] [facility] [id number][place] [address]- 8693 Apr, Supervision of normal first V22.0 [facility] [address] [facility] [id number] [place] [address]- 6592 Mar, [facility] [address] [facility] [id number][place]68[place]- 9271 Mar, Supervision of normal first V22.0 [facility] [address] [facility] [id number]- 1728 February, Supervision of normal first V22.0 [facility] [address] [facility] [id number][place] [address]- 0310 February, [facility] [address] [facility] [id number][place] [address]- 7534 Jan, [facility] [address] [facility] [id number][place] [address]- 6023 Jan, [facility] [address] [facility] [id number][place] [address]- 7050 Dec, [facility] [address] [facility] [id number][place] [address]- 6410 Dec, [facility] [address] [facility] [id number]- 8449 Dec, [facility] [address] [facility] [id number][place] [address]- 5263 Dec, [facility] [address] [facility] [id number], [place] [address]- 3269 Dec, [facility] [address] [facility] [id number] [place] [address]- 4298 16 Dec, 2014 [facility] [place] [facility] [address] [id number] [place] [address]- 5513 11 Dec, 2014 [facility] [place] [facility] [address] [id number] [place] [address]- 9796 11 Dec, 2014 [facility] [place] [facility] [address] [id number] [place] [address]- 6934 10 Dec, 2014 [facility] [place] [facility] [address] [id number] [place] [address] 2545 10 Dec, 2014 [facility] [place] [facility] [address] [id number] [place] [address]- 2613 10 Dec, 2014 [facility] [place] [facility] [address] [facility] [id number] [place] [address]- 2366 10 Dec, 2014 [facility] [place] [facility] [address] [facility] [id number] [place] [address]- 6059 06 Dec, 2014 [facility] [place] [facility] [address] [facility] [id number] [place] [address]- 2260 Dec, [facility] [place] [facility] [address] [id number] [place] [address]- 2786 Dec, [facility] [place] [facility] [address] [facility] [id number] [place] [address]- 6665 27 Nov, 2014 [facility] [place] [facility] [address] [id number] [place] [address]- 2546 26 Nov, 2014 [facility] [place] [facility] [address] [facility] [id number] [place] [address]- 4452 Nov, 2014 [facility] [place] [facility] [address] [id number] [place] [address]- 8033 24 Nov, 2014 [facility] [place] [facility] [address] [facility] [id number] [place] [address]- 7790 24 Nov, 2014 [facility] [place] [facility] [address] [facility] [id number] [place] [address]- 0773 Nov, [facility] [place] [facility] [address] [id number] [place] [address]- 2410 Nov, [facility] [place] [facility] [address] [id number] [place] [address]- 4538 Nov, [facility] [place] [facility] [address] [id number] [place] 8410 Nov, [facility] [place] [facility] [address] [id number] [place] [address]- 0538 Nov, [facility] [place] [facility] [address] [id number] [place] [address]- 9919 Nov, [facility] [place] [facility] [address] [id number] [place] [address]- 0493 Nov, [facility] [place] [facility] [address] [id number] [place] [address]- 1627 Oct, [facility] [place] [facility] [address] [id number] [place] [address]- 6553 Oct, [facility] [place] [facility] [address] [id number] [place] [address]- 7591 Oct, [facility] [place] [facility] [address] [id number] [place] [address]- 6263 Oct, [facility] [place] [facility] [address] [id number] [place] [address]- 8360 Oct, [facility] [place] [facility] [address] [id number] [place] [address]- 0784 Oct, [facility] [place] [facility] [address] [id number] [place] [address]- 0353 Sep, [facility] [place] [facility] [address] [id number] [place] [address]- 8362 Sep, [facility] [place] [facility] [address] [id number] [place] [address]- 8908 Sep, [facility] [place] [facility] [address] [id number] [place] [address]- 5653 17 Sep, 2014 [facility] [place] [facility] [address] [id number] [place] [address]- 6093 Sep, [facility] [place] [facility] [address] [id number] [place] [address]- 7556 Sep, [facility] [place] [facility] [address] [id number] [place] [address]- 1834 Sep, [facility] [place] [facility] [address] [id number] [place] [address]- 0380 Sep, [facility] [place] [facility] [address] [id number] [place] 0573 Aug, [facility] [place] [facility] [address] [id number] [place] [address]- 1236 Aug, [facility] [place] [facility] [address] [id number] [place] [address]- 8275 Aug, [facility] [place] [facility] [address] [id number] [place] [address]- 9890 Aug, [facility] [place] [facility] [address] [id number] [place] [address]- 7141 Jul, [facility] [place] [facility] [address] [id number] [place] [address]- 6912 Jul, [facility] [place] [facility] [address] [id number] [place] [address]- 6816 Jul, [facility] [place] [facility] [address] [id number] [place] [address]- 9427 Jun, [facility] [place] [facility] [address] [id number] [place] [address]- 3639 30 Jun, 2014 [facility] [place] [facility] [address] [id number] [place] [address]- 0480 Jun, [facility] [place] [facility] [address] [id number] [place] [address]- 1107 Jun, [facility] [place] [facility] [address] [id number] [place] [address]- 4079 18 Jun, 2013 [facility] [place] [facility] [address] [id number] [place] [address]- 0906 18 Jun, 2013 [facility] [place] [facility] [address] [id number] [place] [address]- 9092 15 Jun, 2013 [facility] [place] [facility] [address] [id number] [place] [address]- 7982 15 Jun, 2013 [facility] [place] [facility] [address] [id number] [place] [address]- 3685 12 Jun, 2014 [facility] [place] [facility] [address] [id number] [place] [address]- 7880 11 Jun, 2014 [facility] [place] [facility] [address] [id number] [place] [address]- 8413 10 Jun, 2014 [facility] [place] [facility] [address] [id number] [place] [address]- 4212 08 Jun, 2014 [facility] [place] [facility] [address] [id number] [place] [address]- 9308 08 Jun, 2014 [facility] [place] [facility] [address] [id number] [place] [address]- 9480 May, [facility] [place] [facility] [address] [id number] [place] [address]- 0747 May, [facility] [place] [facility] [address] [id number] [place] [address]- 3617 May, [facility] [place] [facility] [address] [id number] [place] [address]- 5837 May, [facility] [place] [facility] [address] [id number] [place] [address]- 4624 May, [facility] [place] [facility] [address] [id number] [place] [address]- 9258 Apr, [facility] [place] [facility] [address] [id number] [place] [address]- 2526 Apr, [facility] [place] [facility] [address] [id number] [place] [address]- 3097 Apr, [facility] [place] [facility] [address] [id number] [place] [address]- 6777 Apr, [facility] [place] [facility] [address] [id number] [place] [address]- 3961 Apr, [facility] [place] [facility] [address] [id number] [place] [address]- 9621 Apr, [facility] [place] [facility] [address] [id number] [place] [address] Apr, [facility] [place] [facility] [address] [id number] [place] [address] Apr, [facility] [place] [facility] [address] [id number] [place] [address] Apr, [facility] [place] [facility] [address] [id number] [place] [address] Apr, [facility] [place] [facility] [address] [id number] [place] [address] Apr, [facility] [place] [facility] [address] [id number] [place] [address] Apr, [facility] [place] [facility] [address] [id number] [place] [address] Apr, [facility] [place] [facility] [address] [id number] [place] [address] Apr, [facility] [place] [facility] [address] [id number] [place] [address] Apr, [facility] [place] [facility] [address] [id number] [place] [address] Apr, [facility] [place] [facility] [address] [id number] [place] [address] Apr, [facility] [place] [facility] [address] [id number] [place] [address] Apr, [facility] [place] [facility] [address] [id number] [place] [address] Apr, [facility] [place] [facility] [address] [id number] [place] [address] Mar, [facility] [place] [facility] [address] [id number] [place] [address] Mar, [facility] [place] [facility] [address] [id number] [place] [address] Mar, [facility] [place] [facility] [address] [id number] [place] [address] Mar, [facility] [place] [facility] [address] [id number] [place] [address] Mar, [facility] [place] [facility] [address] [id number] [place] [address] Mar, [facility] [place] [facility] [address] [id number] [place] [address] Mar, [facility] [place] [facility] [address] [id number] [place] [address] Mar, [facility] [place] [facility] [address] [id number] [place] [address] Mar, [facility] [place] [facility] [address] [id number] [place] [address]- [address] Mar, [facility] [place] [facility] [address] [id number] [place] [address] Mar, [facility] [place] [facility] [address] [id number] [place] [address] Mar, [facility] [place] [facility] [address] [id number] [place] [address] Mar, [facility] [place] [facility] [address] [id number] [place] [address] Mar, [facility] [place] [facility] [address] [id number] [place] [address] Mar, [facility] [place] [facility] [address] [id number] [place] [address] February, [facility] [place] [facility] [address] [id number] [place] [address] February, [facility] [place] [facility] [address] [id number] [place] [address] February, [facility] [place] [facility] [address] [id number] [place] [address] February, [facility] [place] [facility] [address] [id number] [place] [address] February, [facility] [place] [facility] [address] [id number] [place] [address] February, [facility] [place] [facility] [address] [id number] [place] [address] February, [facility] [place] [facility] [address] [id number] [place] [address] February, [facility] [place] [facility] [address] [id number] [place] [address] 134[address] February, [facility] [place] [facility] [address] [id number] [place] [address] February, [facility] [place] [facility] [address] [id number] [place] [address] Jan, [facility] [place] [facility] [address] [id number] [place] [address] Jan, [facility] [place] [facility] [address] [id number] [place] [address]- [address] Jan, [facility] [place] [facility] [address] [id number] [place] [address] Jan, [facility] [place] [facility] [address] [id number] [place] [address] 08 Jan, 2014 [facility] [address] [id number] [place] [address] Jan, [facility] [facility] [address] [id number] [place] [address] Dec, [facility] [place] [facility] [address] [id number] [place] [address] Dec, [facility] [place] [facility] [address] [id number] [place] [address] Oct, [facility] [address] [id number] [place] [address] Oct, [facility] [place] [facility] [address] [id number] [place] [address] Sep, [facility] [address] [id number] [place] [address] Sep, [facility] [place] [facility] [address] [id number] [place] [address] Sep, [facility] [place] [facility] [address] [id number] [place] [address] Sep, [facility] [address] [facility] [id number] [place] [address] Sep, [facility] [place] [facility] [address] [id number] [place] [address] Aug, [facility] [place] [facility] [address] [id number] [place] [address] Aug, [facility] [place] [facility] [address] [id number] [place] [address] Aug, [facility] [place] [facility] [address] [id number] [place] [address] Aug, [facility] [place] [facility] [address] [id number] [place] [address] Aug, [facility] [place] [facility] [address] [id number] [place] [address] Aug, [facility] [place] [facility] [address] [id number] [place] [address] Aug, [facility] [place] [facility] [address] [id number] [place] [address] Aug, [facility] [place] [facility] [address] [id number] [place] [address] Aug, [facility] [place] [facility] [address] [id number] [place] [address] Aug, [facility] [place] [address] [id number] [place] [address] Aug, [facility] [place] [facility] [address] [id number] [place] [address] Jul, [facility] [place] [facility] [address] [id number] [place] [address] Jul, [facility] [facility] [address] [id number] [place] [address] Jul, [facility] [facility] [address] [id number] [place] [address] Jul, [facility] [place] [facility] [address] [id number] [place] [address] February, [facility] [place] [facility] [address] [id number] [place] [address] Jan, [facility] [facility] [address] [id number] [place] [address] 18 Jan, 2013 [facility] [place] [facility] [address] [id number] [place] [address] Jan, [facility] [address] [id number] [place] [address] 31 Dec, 2012 [facility] [address] [id number] [place] [address]- [address] 30 Dec, 2012 [facility] [facility] [address] [id number] [place] [address] 28 Dec, 2012 [facility] [place] [address] [id number] [place] [address] 25 Dec, 2012 [facility] [address] [id number] [place] [address] 05 Dec, 2012 [facility] [address] [id number] [place] [address] 31 Oct, 2012 [facility] [address] [id number] [place] [address] 30 Oct, 2012 [facility] [address] [id number] [place] [address] Oct, [facility] [address] [id number] [place] [address] Oct, [facility] [address] [id number] [place] [address] 15 Sep, 2012 [facility] [place] [address] [id number] [place] [address] Sep, [facility] [address] [id number] [place] [address] Sep, [facility] [address] [id number] [place] [address] Aug, [facility] [address] [id number] [place] [address] Aug, [facility] [address] [id number] [place] [address] Aug, [facility] [address] [id number] [place] [address] Aug, [facility] [address] [id number] [place] [address] Aug, [facility] [address] [facility] [id number], [place] [address] Jul, [facility] [address] [facility] [id number], [place] [address] Jul, [facility] [address] [facility] [id number], [place] [address] Jul, [facility] [address] [facility] [id number], [place] [address] Jul, [facility] [address] [facility] [id number], [place] [address] Jul, [facility] [id number], [place] [address] Jul, [facility] [address] [facility] [id number], [place] [address] Dec, [facility] [id number], [place] [address] Dec, [facility] [id number], [place] [address] 16 Jun, 2009 [facility] [id number], [place] [address] Mar, [facility] [address] [id number] [address] 10 Jun, 2008 IMMUNIZATIONS No Known Immunizations SOCIAL HISTORY Never Assessed REASON FOR VISIT TB skin test- Piper Werner RN PLAN OF CARE Activity Details Follow Up 48-72 hours Reason: VITAL SIGNS MEDICATIONS Unknown Medications RESULTS No Results PROCEDURES Procedure Date Ordered Result Body Site TB INTRADERMAL 2018-02-08 N/A TB INTRADERMAL TEST February 08, 2018 INSTRUCTIONS MEDICATIONS ADMINISTERED No Known Medications MEDICAL (GENERAL) HISTORY Type Description Date Medical History High risk sexual behavior Medical History attention deficit hyperactivity disorder Surgical History tonsillectomy Surgical History tubes in ears Surgical History Dental Sugery Hospitalization History childbirth only
--- OUTSIDE RECORDS SUMMARY | 2018-09-26 14:38 | XMS REPORT ---
Author Author PHILIP Chang Organization [facility] Address [address] [address] Care Team Providers Care Nut Threader Name Role Phone PHILIP Chang Unavailable PROBLEMS Type Condition ICD9-CM Code QCN67-VE Code Onset Dates Condition Status SNOMED Code Problem Physical exam, pre-employment Z02.1 Active 458297252 Problem Non-seasonal allergic rhinitis due to pollen J30.1 Active 92695006 Problem ADHD (attention deficit hyperactivity disorder), combined type F90.2 Active [id number] ALLERGIES No Information ENCOUNTERS Encounter Location Date Diagnosis [place] [id number] [place] [address] 95150- 6568 Mar, [place] [address] [place] [id number] [place] [address] 54874- 7513 Mar, Well woman exam with routine gynecological exam Z01.419 ; Screen for STD (sexually transmitted disease) Z11.3 ; Vaginal candidiasis B37.3 and High risk sexual behavior Z72.51 [place] [address] [place] [address] 24312- 2734 Jan, Visit for TB skin test Z11.1 [facility] [id number] [address] Jan, H. pylori infection A04.8 [place] [address] [place] [address] 21143- 9037 Jan, Physical exam, pre-employment Z02.1 and Visit for TB skin test Z11.1 [place] [address] [address] 164[address] Jan, Weight loss R63.4 [place] [address] [place] [id number] [place] [address] 77019- 6277 Jan, Weight loss R63.4 [place] [address] [address]235- 5414 Jan, Weight loss R63.4 ; Diarrhea, unspecified type R19.7 and Nausea R11.0 [place] [address] 12434- 0299 Oct, Viral gastroenteritis A08.4 ; Fever, unspecified fever cause R50.9 ; Non-seasonal allergic rhinitis due to pollen J30.1 and Influenza A J10.1 [place] [address] [address]- 1982 Dec, Ingrowing toenail with infection L60.0 [place] [address] 16886- 6807 Nov, Ingrowing toenail with infection L60.0 [place] [address] [place] [id number] [place] [address] 14808- 0003 Nov, [place] [address] 18775- 1583 Nov, [place] [address] 51113- 0850 Nov, ADHD (attention deficit hyperactivity disorder), combined type F90.2 [facility] [address] [address] [id number] [place] [address] 42056 -8834 Nov, Sore throat J02.9 and Acute nasopharyngitis (common cold) J00 [place] [address] 67011- 3137 Oct, [facility] [address] [address]- [address] Aug, [place] [address] 98677- 4080 Aug, Routine gynecological examination Z01.419 ; Nexplanon in place Z97.5 and Dysuria R30.0 [facility] [address] [id number] [place] [address] 13219- 9708 09 Aug, 2016 [facility] [address] [address] [id number] [place] [address] 81366- 0059 Aug, [facility] [id number] [place] [address] 18109 -1984 Jul, Acute cystitis without hematuria N30.00 [facility] [id number] [place] [address] 91832 -1536 18 Jun, 2016 Dysuria R30.0 and Acute cystitis with hematuria N30.01 [facility] [address] [address] [id number] [place] [address] 09675- 6509 14 Jun, 2016 [facility] [address] [address] [id number] [place] [address] 09122 -6931 Jun, Vaginal yeast infection B37.3 [facility] [address] [address] [id number] [place] [address] 70412- 7729 May, [facility] [address] [address] [id number] [place] [address] 55933 -0205 Apr, Infection B99.9 [facility] [address] [address] [id number] [place] [address] 19076- 6283 Apr, [facility] [address] [address] [id number] [place] [address] 47038- 7862 Apr, [facility] [address] [address] [id number] [place] [address] 08004- 9877 Apr, [facility] [address] [address] [id number] [place] [address] 07745- 2700 Apr, [facility] [address] [place] [address] 61335- 8574 Mar, Ingrown toenail L60.0 [facility] [address] [place] [id number] [address]- 6884 Mar, [facility] [address] [facility] [id number] [address] 2267 Mar, [facility] [address] [id number] [place] [address] Mar [facility] [address] [address]- 7992 February, Ingrown right big toenail L60.0 [facility] [address] [place] [id number] [address]- 7614 February, [facility] [address] [address]- 0821 February, [facility] [address] [address]- 9336 February, Ingrowing right great toenail L60.0 and Overweight (BMI 25.0 -29.9) E66.3 [facility] [address] [address] 4746 February, [facility] [address] [address]- 1220 February, [facility] [address] [id number] [place] [address] February [facility] [address] [id number] [place] [address] February [facility] [address] [facility] [id number] [address]- 1251 Jan, [facility] [address] [place] [address] [id number] [address]- 9312 Jan, [facility] [address] [address] [id number] [address]- 8150 Jan, [facility] [address] [address] [id number] [address]- 6669 Jan, [facility] [address] [place] [address] [id number] [address]- 8301 Dec, [facility] [address] [place] [address] 12953- 2290 Dec, [facility] [address] [address] Dec, Vaginal candidiasis B37.3 [facility] [id number] [id number] Dec, [facility] [address] [place] [address] 30979- 3509 Dec, [facility] [address] [place] [address] 89787- 4893 Dec, Encounter for test, result unknown Z32.00 [facility] [address] [place] [address] 61823- 8491 Oct, Nail, ingrown L60.0 and Infected nailbed of toe L03.039 [facility] [address] [address]- 5170 Oct, [facility] [address] [place] [address] 54356- 4843 Oct, [facility] [address] [address]- 8445 Oct, [facility] [address] [address]- 6300 16 Sep, 2015 [facility] [address] [id number] [place] [address] Sep [facility] [address] [id number] [place] [address] Sep [facility] [address] [place] [address] [id number] [address]- 6074 08 Sep, 2015 Frequent urination R35.0 ; Irregular menses N92.6 ; Abdominal cramping R10.9 ; Surveillance of implantable subdermal contraceptive Z30.49 ; Unprotected sexual intercourse Z72.51 and Vaginal itching L29.8 [facility] [address] [id number] [place] [address] Aug [facility] [address] [address]- 5735 Aug, [facility] [address] [place] [address] 41967- 2512 Aug, [facility] [address] [place] [address] 56323- 5399 Jul, [facility] [address] [place] [id number] [place] [address] 69581- 7251 Jul, [facility] [address] [place] [address] 53494- 2272 Jul, Routine follow-up Z39.2 ; Vaginal itching L29.8 ; Leaking of urine R32 ; General counseling and advice for contraceptive management Z30.09 ; Change in vision H53.9 and Evaluation for contraceptive implant Z30.018 [facility] [address] [place] [address] 51234- 7447 Jul, [facility] [address] [place] [address] 14692- 6384 24 Jun, 2015 [facility] [address] [address]- 0033 Jun, [facility] [address] [place] [address] 26923- 5863 16 Jun, 2015 [facility] [address] [place] [address] 45365- 1506 Jun, [facility] [address] [place] [address] 65381- 3894 Jun, Cough 786.2 [facility] [address] [place] [address] 41313- 2527 Jun, [facility] [address] [id number] [address]- 0342 15 Jun, 2014 [facility] [address] [id number] [place] [address]- 3206 14 Jun, 2014 [facility] [address] [facility] [id number] [place] [address]- 2545 14 Jun, 2014 [facility] [address] [facility] [id number] [place] [address]- 5411 Jun, 2014 [facility] [address] [id number] [place] [address]- 6452 Jun, 2014 [facility] [address] [facility] [id number] [place] [address]- 9388 Jun, 2014 Supervision of normal first V22.0 [facility] [address] [facility] [id number] [place] [address]- 9776 Jun, 2014 [facility] [address] [facility] [id number] [address]- 0071 Jun, 2014 [facility] [address] [facility] [id number] [address]- 8081 Jun, Supervision of normal first V22.0 [facility] [address] [facility] [id number] [address]- 0671 May, Supervision of normal first V22.0 [facility] [address] [facility] [id number] [address]- 6363 May, [facility] [address] [facility] [id number] [address]- 6698 May, Supervision of normal first V22.0 [facility] [address] [facility] [id number] [address]- 2955 Apr, Supervision of normal first V22.0 [facility] [address] [facility] [id number] [address]- 8117 Apr, [facility] [address] [facility] [id number] [address]- 4355 Apr, [facility] [address] [facility] [id number] [address]- 0553 Apr, Supervision of normal first V22.0 [facility] [address] [facility] [id number] [place] [address]- 2546 Apr, [facility] [address] [facility] [id number] [place] [address]- 2899 Apr, Supervision of normal first V22.0 [facility] [address] [facility] [id number] [place] [address]- 3111 Mar, [facility] [address] [facility] [id number] [place] [address]- 0676 Mar, Supervision of normal first V22.0 [facility] [address] [facility] [id number] [place] [address] 70998- 7273 February, Supervision of normal first V22.0 [facility] [address] [facility] [id number] [place] [address]- 7288 February, [facility] [address] [facility] [id number] [place] [address]- 3737 Jan, [facility] [address] [facility] [id number] [address]- 3916 Jan, [facility] [address] [facility] [id number] [address]- 9651 Dec, [facility] [address] [facility] [id number] [address]- 1037 Dec, [facility] [address] [facility] [id number] [place] [address]- 3816 Dec, [facility] [address] [facility] [id number] [address]- 6666 Dec, [facility] [address] [facility] [id number] [address]- 3262 Dec, [facility] [place] [facility] [address] [id number] [place] [address]- 5367 16 Dec, 2014 [facility] [place] [facility] [address] [id number] [place] [address]- 6387 11 Dec, 2014 [facility] [place] [facility] [address] [id number] [place] [address]- 0814 11 Dec, 2014 [facility] [place] [facility] [address] [id number] [place] [address]- 2380 10 Dec, 2014 [facility] [place] [facility] [address] [id number] [place] [address]- 2284 10 Dec, 2014 [facility] [place] [facility] [address] [id number] [place] [address]- 7660 10 Dec, 2014 [facility] [place] [facility] [address] [id number] [place] [address]- 6297 10 Dec, 2014 [facility] [place] [facility] [address] [id number] [place] [address]- 4539 06 Dec, 2014 [facility] [place] [facility] [address] [id number] [place] [address]- 7619 Dec, [facility] [place] [facility] [address] [id number] [place] [address]- 6429 Dec, [facility] [place] [facility] [address] [id number] [place] [address]- 8135 Nov, 2014 [facility] [place] [facility] [address] [id number] [place] [address]- 6105 Nov, 2014 [facility] [place] [facility] [address] [id number] [place] [address]- 2348 Nov, 2014 [facility] [place] [facility] [address] [id number] [place] [address]- 7255 Nov, 2014 [facility] [place] [facility] [address] [id number] [place] [address]- 4497 Nov, [facility] [place] [facility] [address] [id number] [place] [address]- 1438 Nov, 2014 [facility] [place] [facility] [address] [id number] [place] [address]- 5071 Nov, 2014 [facility] [place] [facility] [address] [id number] [place] [address]- 8136 Nov, 2014 [facility] [place] [facility] [address] [id number] [place] [address]- 1221 Nov, 2014 [facility] [place] [facility] [address] [id number] [place] [address]- 6361 Nov, 2014 [facility] [place] [facility] [address] [id number] [place] [address]- 3534 Nov, 2014 [facility] [place] [facility] [address] [id number] [place] [address]- 6179 Nov, [facility] [place] [facility] [address] [id number] [place] [address]- 5360 Oct, [facility] [place] [facility] [address] [id number] [place] [address]- 0598 Oct, [facility] [place] [facility] [address] [id number] [place] [address]- 5109 Oct, [facility] [place] [facility] [address] [id number] [place] [address]- 4852 Oct, [facility] [place] [facility] [address] [id number] [place] [address]- 8739 Oct, [facility] [place] [facility] [address] [id number] [place] [address]- 1529 Oct, [facility] [place] [facility] [address] [id number] [place] [address]- 6423 Sep, [facility] [place] [facility] [address] [id number] [place] [address]- 9096 Sep, [facility] [place] [facility] [address] [id number] [place] [address]- 0523 18 Sep, 2014 [facility] [place] [facility] [address] [id number] [place] 8235 17 Sep, 2014 [facility] [place] [facility] [address] [id number] [place] [address]- 8692 Sep, [facility] [place] [facility] [address] [facility] [id number] [place] [address]- 0744 Sep, [facility] [place] [facility] [address] [id number] [place] [address]- 3876 Sep, [facility] [place] [facility] [address] [id number] [place] 2128 Sep, [facility] [place] [facility] [address] [id number] [place] [address]- 9436 Aug, [facility] [place] [facility] [address] [id number] [place] [address]- 3776 Aug, [facility] [place] [facility] [address] [id number] [place] [address]- 7121 Aug, [facility] [place] [facility] [address] [id number] [place] [address]- 8929 Aug, [facility] [place] [facility] [address] [id number] [place] [address]- 4561 Jul, [facility] [place] [facility] [address] [id number] [address]- 3050 Jul, [facility] [place] [facility] [address] [id number] [address]- 8471 Jul, [facility] [place] [facility] [address] [id number] [place] [address]- 3809 Jun, [facility] [place] [facility] [address] [id number] [place] [address]- 1684 30 Jun, 2014 [facility] [place] [facility] [address] [id number] [place] [address] 24 Jun, 2014 [facility] [place] [facility] [address] [id number] [place] [address]26 24 Jun, 2013 [facility] [place] [facility] [address] [id number] [place] [address] 110[address] 18 Jun, 2013 [facility] [place] [facility] [address] [id number] [place] [address] 18 Jun, 2013 [facility] [place] [facility] [address] [id number] [place] [address] 15 Jun, 2013 [facility] [place] [facility] [address] [id number] [place] [address] 15 Jun, 2013 [facility] [place] [facility] [address] [id number] [place] [address] 12 Jun, 2014 [facility] [place] [facility] [address] [id number] [place] [address] 11 Jun, 2014 [facility] [place] [facility] [address] [id number] [place] [address] 10 Jun, 2013 [facility] [place] [facility] [address] [id number] [place] [address] 08 Jun, 2014 [facility] [place] [facility] [address] [id number] [place] [address] 08 Jun, 2014 [facility] [place] [facility] [address] [id number] [place] [address]80 20 May, 2014 [facility] [place] [facility] [address] [id number] [place] [address] May, [facility] [place] [facility] [address] [id number] [place] [address] May, [facility] [place] [facility] [address] [id number] [place] [address] May, [facility] [place] [facility] [address] [id number] [place] [address] May, [facility] [place] [facility] [address] [id number] [place] [address] Apr, [facility] [place] [facility] [address] [id number] [place] [address] Apr, [facility] [place] [facility] [address] [id number] [place] [address] Apr, [facility] [place] [facility] [address] [id number] [place] [address] Apr, [facility] [place] [facility] [address] [id number] [place] [address] Apr, [facility] [place] [facility] [address] [id number] [place] [address] Apr, [facility] [place] [facility] [address] [id number] [place] [address] Apr, [facility] [place] [facility] [address] [id number] [place] [address] 1986 Apr, [facility] [place] [facility] [address] [id number] [place] [address] Apr, [facility] [place] [facility] [address] [id number] [place] [address]- [address] Apr, [facility] [place] [facility] [address] [id number] [place] [address] Apr, [facility] [place] [facility] [address] [id number] [place] [address] Apr, [facility] [place] [facility] [address] [id number] [place] [address] 9545 Apr, [facility] [place] [facility] [address] [id number] [place] [address] Apr, [facility] [place] [facility] [address] [id number] [place] [address] Apr, [facility] [place] [facility] [address] [id number] [place] [address]- 359[address] Apr, [facility] [place] [facility] [address] [id number] [place] [address] Apr, [facility] [place] [facility] [address] [id number] [place] [address] 47[address] Apr, [facility] [place] [facility] [address] [id number] [place] [address] Apr, [facility] [place] [facility] [address] [id number] [place] [address] Mar, [facility] [place] [facility] [address] [id number] [place] [address] Mar, [facility] [place] [facility] [address] [id number] [place] [address] 235[address] Mar, [facility] [place] [facility] [address] [id number] [place] [address]- 7599 Mar, [facility] [place] [facility] [address] [id number] [place] [address]- [address] Mar, [facility] [place] [facility] [address] [id number] [place] [address] Mar, [facility] [place] [facility] [address] [id number] [place] [address]- 44[address] Mar, [facility] [place] [facility] [address] [id number] [place] [address]- [address] Mar, [facility] [place] [facility] [address] [id number] [place] [address] 1310 Mar, [facility] [place] [facility] [address] [id number] [place] [address]- [address] Mar, [facility] [place] [facility] [address] [id number] [place] [address]- [address] Mar, [facility] [place] [facility] [address] [id number] [place] [address] 1992 Mar, [facility] [place] [facility] [address] [id number] [place] [address]- [address] Mar, [facility] [place] [facility] [address] [id number] [place] [address]- [address] Mar, [facility] [address] [id number] [place] [address] Mar, [facility] [facility] [address] [id number] [place] [address] February, [facility] [place] [facility] [address] [id number] [place] [address] February, [facility] [place] [facility] [address] [id number] [place] [address]- [address] February, [facility] [place] [facility] [address] [id number] [place] [address] February, [facility] [place] [facility] [address] [id number] [place] [address] February, [facility] [place] [facility] [address] [id number] [place] [address] February, [facility] [address] [id number] [place] [address] February, [facility] [place] [facility] [address] [id number] [place] [address] February, [facility] [place] [facility] [address] [id number] [place] [address] February, [facility] [place] [facility] [address] [id number] [place] [address] February, [facility] [place] [facility] [address] [id number] [place] [address] Jan, [facility] [place] [facility] [address] [id number] [place] [address] Jan, [facility] [place] [facility] [address] [id number] [place] [address] Jan, [facility] [place] [facility] [address] [id number] [place] [address] Jan, [facility] [place] [facility] [address] [id number] [place] [address] Jan, [facility] [place] [facility] [address] [id number] [place] [address] Jan, [facility] [place] [facility] [address] [id number] [place] [address] Dec, [facility] [place] [facility] [address] [id number] [place] [address] Dec, [facility] [place] [facility] [address] [id number] [place] [address] Oct, [facility] [place] [facility] [address] [id number] [place] [address] Oct, [facility] [place] [facility] [address] [id number] [place] [address] Sep, [facility] [place] [facility] [address] [id number] [place] [address] Sep, [facility] [place] [facility] [address] [id number] [place] [address] Sep, [facility] [place] [facility] [address] [id number] [place] [address] Sep, [facility] [place] [facility] [address] [id number] [place] [address] Sep, [facility] [place] [facility] [address] [id number] [address] Aug, [facility] [place] [facility] [address] [id number] [place] [address] Aug, [facility] [place] [facility] [address] [id number] [place] [address] Aug, [facility] [place] [facility] [address] [id number] [place] [address] Aug, [facility] [place] [facility] [address] [id number] [place] [address] 13 Aug, 2013 [facility] [place] [facility] [address] [id number] [place] [address] 13 Aug, 2013 [facility] [place] [facility] [address] [id number] [place] [address] 11 Aug, 2013 [facility] [place] [facility] [address] [id number] [place] [address] Aug, [facility] [place] [facility] [address] [id number] [place] [address] 10 Aug, 2013 [facility] [place] [facility] [address] [id number] [place] [address] 07 Aug, 2013 [facility] [place] [facility] [address] [id number] [place] [address] Aug, [facility] [place] [facility] [address] [id number] [place] [address] 30 Jul, 2013 [facility] [place] [facility] [address] [id number] [place] [address] Jul, [facility] [place] [facility] [address] [id number] [place] [address] Jul, [facility] [place] [facility] [address] [facility] [id number] [place] [address] Jul, [facility] [place] [facility] [address] [id number] [place] [address] February, [facility] [place] [facility] [address] [id number] [place] [address] Jan, [facility] [place] [facility] [address] [id number] [place] [address] 18 Jan, 2013 [facility] [place] [facility] [address] [id number] [place] [address] 10 Jan, 2013 [facility] [place] [facility] [address] [facility] [id number] [place] [address] 31 Dec, 2012 [facility] [place] [facility] [address] [id number] [place] [address] 30 Dec, 2012 [facility] [place] [facility] [address] [id number] [place] [address] 28 Dec, 2012 [facility] [place] [facility] [address] [id number] [place] [address] 25 Dec, 2012 [facility] [place] [facility] [address] [id number] [place] [address] 05 Dec, 2012 [facility] [place] [facility] [address] [id number] [place] [address] 31 Oct, 2012 [facility] [place] [facility] [address] [id number] [place] [address] 30 Oct, 2012 [facility] [place] [facility] [address] [id number] [place] [address] Oct, [facility] [place] [facility] [address] [id number] [place] [address] 17 Oct, 2012 [facility] [place] [facility] [address] [id number] [place] [address] Sep, [facility] [place] [facility] [address] [id number] [place] [address] Sep, [facility] [place] [facility] [address] [id number] [place] [address] Sep, [facility] [place] [facility] [address] [id number] [place] [address] Aug, [facility] [place] [facility] [address] [id number] [place] [address] Aug, [facility] [place] [facility] [address] [id number] [place] [address] Aug, [facility] [place] [facility] [address] [id number] [place] [address] Aug, [facility] [place] [facility] [address] [id number] [place] [address] Aug, [facility] [address] [id number] [address] Jul, [facility] [id number] [address] Jul, [facility] [id number] [address] Jul, [facility] [id number] [address] Jul, [facility] [id number] [address] Jul, [facility] [id number] [address] Jul, [facility] [id number] [address] Dec, [facility] [id number] [address] Dec, [facility] [id number] [address] Jun, [facility] [id number] [address] Mar, [facility] [address] [id number] [address] 10 Jun, 2008 IMMUNIZATIONS No Known Immunizations SOCIAL HISTORY Never Assessed REASON FOR VISIT H.pylori stool PLAN OF CARE Activity Details Follow Up prn Reason: VITAL SIGNS MEDICATIONS Medication Instructions Dosage Frequency Start Date End Date Duration Status Omeprazole 20 mg Orally Once a day 1 capsule 24h Jan, 14 days Active Clarithromycin 500 mg Orally every 12 hrs 1 tablet 12h Jan,February 14 days Active Metronidazole 500 mg Orally every 8 hrs 1 tablet 8h Jan, February, 14 days Active RESULTS No Results PROCEDURES No Known procedures INSTRUCTIONS MEDICATIONS ADMINISTERED No Known Medications MEDICAL (GENERAL) HISTORY Type Description Date Medical History High risk sexual behavior Medical History attention deficit hyperactivity disorder Surgical History tonsillectomy Surgical History tubes in ears Surgical History Dental Sugery Hospitalization History childbirth only
--- OUTSIDE RECORDS SUMMARY | 2018-09-26 14:39 | XMS REPORT ---
Author Author PHILIP Chang Organization [facility] Address [address] [address] Care Team Providers Care Public Stenographer Name Role Phone PHILIP Chang Unavailable PROBLEMS Type Condition ICD9-CM Code GQY78-OE Code Onset Dates Condition Status SNOMED Code Problem Physical exam, pre-employment Z02.1 Active 589549049 Problem Non-seasonal allergic rhinitis due to pollen J30.1 Active 18705161 Problem ADHD (attention deficit hyperactivity disorder), combined type F90.2 Active [id number] ALLERGIES Substance Reaction Event Type Date Status SulfADIAZINE anaphylaxis Drug Allergy Jan, Active Penicillamine Unknown Drug Allergy Jan, Active ENCOUNTERS Encounter Location Date Diagnosis [place] [id number] [place] [address]140- 4945 Mar, [place] [address] [place] [id number] [place] [address] 85310- 1573 Mar, Well woman exam with routine gynecological exam Z01.419 ; Screen for STD (sexually transmitted disease) Z11.3 ; Vaginal candidiasis B37.3 and High risk sexual behavior Z72.51 [place] [id number] [place] [address] 60343- 8409 Jan, Visit for TB skin test Z11.1 [facility] [id number] [place] [address] Jan, H. pylori infection A04.8 [place] [id number] [place] [address] 10970- 9575 Jan, Physical exam, pre-employment Z02.1 and Visit for TB skin test Z11.1 [place] [id number] [place] [address] 68315- 8385 Jan, Weight loss R63.4 [place] [address] [place] [id number] [place] [address] 09098- 4068 Jan, Weight loss R63.4 [place] [address] [address]- 480[address] Jan, Weight loss R63.4 ; Diarrhea, unspecified type R19.7 and Nausea R11.0 [place] [address] [address]- 0[address] Oct, Viral gastroenteritis A08.4 ; Fever, unspecified fever cause R50.9 ; Non-seasonal allergic rhinitis due to pollen J30.1 and Influenza A J10.1 [place] [address] [place] [id number] [place] [address] 26183- 9816 Dec, Ingrowing toenail with infection L60.0 [place] [address] 09658- 3749 Nov, Ingrowing toenail with infection L60.0 [place] [address] [place] [id number] [place] [address] 81771- 4930 Nov, [place] [address] [place] [id number] [place] [address] 61686- 5464 Nov, [place] [address] [place] [id number] [place] [address] 28301- 7851 Nov, ADHD (attention deficit hyperactivity disorder), combined type F90.2 [facility] [address] [place] [id number] [place] [address] 94861 -4037 Nov, Sore throat J02.9 and Acute nasopharyngitis (common cold) J00 [place] [address] [place] [id number] [place] [address] 40779- 6689 Oct, [place] [address] 27884- 9373 Aug, [place] [address] [address] 17 Aug, 2016 Routine gynecological examination Z01.419 ; Nexplanon in place Z97.5 and Dysuria R30.0 [facility] [address] [place] [id number] [place] [address] 81307- 2440 09 Aug, 2016 [facility] [address] [place] [id number] [place] [address] 62559- 1236 Aug, [facility] [address] [place] [id number] [place] [address] 40616 -5654 Jul, Acute cystitis without hematuria N30.00 [facility] [address] [place] [id number] [place] [address] 86311 -9230 18 Jun, 2016 Dysuria R30.0 and Acute cystitis with hematuria N30.01 [facility] [address] [place] [id number] [place] [address] 14434- 2135 Jun, [facility] [address] [place] [id number] [place] [address] 78109 -9414 Jun, Vaginal yeast infection B37.3 [facility] [address] [place] [id number] [place] [address] 54432- 4209 May, [facility] [address] [place] [id number] [place] [address] 42367 -6882 Apr, Infection B99.9 [facility] [address] [place] [id number] [place] [address] 03683- 0978 Apr, [facility] [address] [place] [id number] [place] [address] 14200- 4568 Apr, [facility] [address] [place] [id number] [place] [address] 28995- 8655 Apr, [facility] [id number] [place] [address] 06180- 4932 Apr, [facility] [address] [place] [id number] [place] [address] 46758- 5010 Mar, Ingrown toenail L60.0 [facility] [address] [address]- 9135 Mar, [facility] [address] [place] [id number] [place] [address] 24187- 3726 Mar, [facility] [address] [id number] [place] [address] Mar [facility] [address] [place] [id number] [place] [address] 65345- 8671 February, Ingrown right big toenail L60.0 [facility] [address] [place] [id number] [place] [address] 30207- 9703 February, [facility] [address] [place] [id number] [place] [address] 18451- 6487 February, [facility] [address] [place] [id number] [place] [address] 25530- 6460 February, Ingrowing right great toenail L60.0 and Overweight (BMI 25.0 -29.9) E66.3 [facility] [address] [place] [address] 36870- 0329 February, [facility] [id number] [place] [address] 52934- 8905 February, [facility] [address] [id number] [place] [address] February [facility] [address] [id number] [place] [address] February [facility] [address], [place] [address]- 6056 Jan, [facility] [address] [place] [id number] [place] [address] 91651- 1159 Jan, [facility] [address], [place] [address]- 2763 Jan, [facility] [address], [place] [address]- 7930 Jan, [facility] [address], [place] [address]- 5949 Dec, [facility] [address], [place] [address]- 2227 Dec, [facility] [id number] [place] [address] 64202 -5879 Dec, Vaginal candidiasis B37.3 [facility] [id number] [id number] Dec, [facility] [id number] [place] [address] 02322- 5497 Dec, [facility] [id number] [place] [address] 49466- 0178 Dec, Encounter for test, result unknown Z32.00 [facility] [id number] [place] [address] 58560- 5425 Oct, Nail, ingrown L60.0 and Infected nailbed of toe L03.039 [facility] [address], [place] [address]- 8477 Oct, [facility] [address], [place] [address]- 3862 Oct, [facility] [address], [place] [address]- 1011 13 Oct, 2015 [facility] [address], [place] [address]- 3170 16 Sep, 2015 [facility] [address] [id number] [place] [address] 14 Sep [facility] [address] [id number] [place] [address] Sep [facility] [address], [place] [address]- 1765 Sep, Frequent urination R35.0 ; Irregular menses N92.6 ; Abdominal cramping R10.9 ; Surveillance of implantable subdermal contraceptive Z30.49 ; Unprotected sexual intercourse Z72.51 and Vaginal itching L29.8 [facility] [address] [id number] [place] [address] Aug [facility] [address], [place] [address]- 5026 Aug, [facility] [address] [place] [id number] [place] [address] 88183- 6338 Aug, [facility] [address] [place] [id number] [place] [address] 41886- 2374 Jul, [facility] [address] [place] [id number] [place] [address] 39783- 3586 Jul, [facility] [address] [place] [id number] [place] [address] 69126- 8902 Jul, Routine follow-up Z39.2 ; Vaginal itching L29.8 ; Leaking of urine R32 ; General counseling and advice for contraceptive management Z30.09 ; Change in vision H53.9 and Evaluation for contraceptive implant Z30.018 [facility] [address] [address]- 6933 Jul, [facility] [address], [place] [address]- 5501 Jun, [facility] [id number] [place] [address] 74973- 4582 Jun, [facility] [address], [place] [address]- 0193 Jun, [facility] [address] [place] [id number] [place] [address] 69753- 8591 Jun, [facility] [address] [address]- 3357 Jun, Cough 786.2 [facility] [address] [place] [id number] [address]- 8102 15 Jun, 2014 [facility] [address] [facility] [id number] [address]- 0626 15 Jun, 2014 [facility] [address] [facility] [id number], [place] [address]- 2358 14 Jun, 2014 [facility] [address] [facility] [id number], [place] [address]- 9760 14 Jun, 2014 [facility] [address] [facility] [id number], [place] [address]- 7288 11 Jun, 2014 [facility] [address] [facility] [id number] [place] [address] 64796- 0029 Jun, 2014 [facility] [address] [place] [id number] [place] [address] 51285- 5514 Jun, Supervision of normal first V22.0 [facility] [address], [place] [address]- 0668 Jun, 2014 [facility] [address] [place] [id number] [address]- 5010 Jun, 2014 [facility] [id number] [place] [address] 35562- 2393 Jun, Supervision of normal first V22.0 [facility] [address] [address]- 5373 May, [facility] [address] [place] [id number] [address]- 3763 May, Supervision of normal first V22.0 [facility] [address] [place] [id number] [address]- 9547 May, Supervision of normal first V22.0 [facility] [address] [place] [id number], [place] [address]- 3825 Apr, Supervision of normal first V22.0 [facility] [address], [place] [address]- 7306 Apr, [facility] [address] [facility] [id number] [place] [address]- 5788 Apr, [facility] [address] [facility] [id number][place] [address]- 5526 Apr, Supervision of normal first V22.0 [facility] [address] [facility] [id number] [place] [address]- 4776 Apr, [facility] [address] [facility] [id number] [place] [address]- 6502 Apr, Supervision of normal first V22.0 [facility] [address] [facility] [id number] [place] [address]- 6191 Mar, [facility] [address] [place] [id number] 8776 Mar, Supervision of normal first V22.0 [facility] [address] [facility] [id number], [place] [address]- 3378 February, [facility] [address] [facility] [id number] 3308 February, Supervision of normal first V22.0 [facility] [address] [facility] [id number], [place] [address]- 0244 Jan, [facility] [address] [facility] [id number], [place] [address]- 2306 Jan, [facility] [address] [facility] [id number] [address]- 7719 Dec, [facility] [address] [facility] [id number], [place] [address]- 7576 Dec, [facility] [address] [facility] [id number], [place] [address]- 3546 Dec, [facility] [address] [facility] [id number][place] [address]- 0153 Dec, [facility] [place] [facility] [address] [id number] [place] [address]- 5229 16 Dec, 2014 [facility] [place] [facility] [address] [id number] [place] [address]- 4691 16 Dec, 2014 [facility] [place] [facility] [address] [id number] [place] [address]- 9636 11 Dec, 2014 [facility] [place] [facility] [address] [id number] [place] [address]- 4515 11 Dec, 2014 [facility] [place] [facility] [address] [id number] [place] [address]- 9095 10 Dec, 2014 [facility] [place] [facility] [address] [id number] [place] [address]- 8633 10 Dec, 2014 [facility] [place] [facility] [address] [id number] [place] [address]- 7451 10 Dec, 2014 [facility] [place] [facility] [address] [id number] [place] [address]- 8512 10 Dec, 2014 [facility] [place] [facility] [address] [id number] [place] [address]- 8516 06 Dec, 2014 [facility] [place] [facility] [address] [id number] [place] [address]- 4723 Dec, [facility] [place] [facility] [address] [id number] [place] [address]- 9619 Dec, [facility] [place] [facility] [address] [id number] [place] [address]- 1988 27 Nov, 2014 [facility] [place] [facility] [address] [id number] [place] [address]- 7500 Nov, [facility] [place] [facility] [address] [id number] [place] [address]- 3003 Nov, [facility] [place] [facility] [address] [id number] [place] [address]- 4209 24 Nov, 2014 [facility] [place] [facility] [address] [id number] [place] [address]- 4545 Nov, 2014 [facility] [place] [facility] [address] [id number] [place] [address]- 2646 Nov, 2014 [facility] [place] [facility] [address] [id number] [place] 5746 Nov, 2014 [facility] [place] [facility] [address] [facility] [id number] [place] [address]- 4246 Nov, 2014 [facility] [place] [facility] [address] [id number] [place] [address]- 8956 Nov, 2014 [facility] [place] [facility] [address] [id number] [place] [address]- 0670 Nov, 2014 [facility] [place] [facility] [address] [facility] [id number] [place] [address]- 7006 Nov, 2014 [facility] [place] [facility] [address] [place] [id number] [place] [address]- 8280 Nov, [facility] [place] [facility] [address] [facility] [id number] [place] [address]- 7028 Oct, [facility] [place] [facility] [address] [place] [id number] [place] [address]- 1842 Oct, [facility] [place] [facility] [address] [facility] [id number] [place] [address]- 3144 Oct, [facility] [place] [facility] [address] [facility] [id number] [place] [address]- 8541 Oct, [facility] [place] [facility] [address] [facility] [id number] [place] [address]- 9646 Oct, [facility] [place] [facility] [address] [facility] [id number] [place] 6962 Oct, [facility] [place] [facility] [address] [facility] [id number] [place] [address]- 9666 Sep, [facility] [place] [facility] [address] [facility] [id number] [place] [address]- 9868 Sep, [facility] [place] [facility] [address] [id number] [place] 8951 18 Sep, 2014 [facility] [place] [facility] [address] [id number] [place] 5856 Sep, [facility] [place] [facility] [address] [id number] [place] [address]- 9148 Sep, [facility] [place] [facility] [address] [id number] [place] [address]- 3004 Sep, [facility] [place] [facility] [address] [id number] [place] [address]- 1530 Sep, [facility] [place] [facility] [address] [id number] [place] [address]- 0198 Sep, [facility] [place] [facility] [address] [id number] [place] [address]- 7678 Aug, [facility] [place] [facility] [address] [id number] [place] [address]- 3977 Aug, [facility] [place] [facility] [address] [id number] [place] [address]- 9805 Aug, [facility] [place] [facility] [address] [id number] [place] [address]- 8556 Aug, [facility] [place] [facility] [address] [facility] [id number], [place] [address]- 0644 Jul, [facility] [place] [facility] [address] [id number], [place] [address]- 5555 Jul, [facility] [place] [facility] [address] [id number] [place] [address]- 3330 Jul, [facility] [place] [facility] [address] [id number] [place] [address]- 9236 Jun, [facility] [place] [facility] [address] [id number], [place] [address]- 4761 Jun, [facility] [place] [facility] [address] [id number], [place] [address]- 0017 24 Jun, 2013 [facility] [place] [facility] [address] [id number] [place] [address]- 4866 24 Jun, 2013 [facility] [place] [facility] [address] [id number] [place] [address]- 1783 18 Jun, 2013 [facility] [place] [facility] [address] [id number] [place] [address]- 6150 18 Jun, 2013 [facility] [place] [facility] [address] [id number] [place] [address]- 1317 15 Jun, 2013 [facility] [place] [facility] [address] [id number] [place] [address]- 5250 15 Jun, 2013 [facility] [place] [facility] [address] [id number] [place] [address]- 2839 12 Jun, 2013 [facility] [place] [facility] [address] [id number] [place] [address]- 9088 11 Jun, 2014 [facility] [place] [facility] [address] [id number] [place] [address]- 4696 10 Jun, 2013 [facility] [place] [facility] [address] [id number] [place] [address]- 1476 08 Jun, 2014 [facility] [place] [facility] [address] [id number] [place] [address]- 7868 08 Jun, 2014 [facility] [place] [facility] [address] [id number] [place] [address]- 8532 May, [facility] [place] [facility] [address] [id number] [place] [address]- 3803 May, [facility] [place] [facility] [address] [id number] [place] [address]- 8054 May, [facility] [place] [facility] [address] [id number] [place] [address]- 4745 May, [facility] [place] [facility] [address] [id number] [place] [address]- 2421 18 May, 2014 [facility] [place] [facility] [address] [id number] [place] [address]- 0409 Apr, [facility] [place] [facility] [address] [id number] [place] [address]- 0591 Apr, [facility] [place] [facility] [address] [id number] [place] [address]- 5036 Apr, [facility] [place] [facility] [address] [id number] [place] [address]- 1416 Apr, [facility] [place] [facility] [address] [id number] [place] [address]- 3648 Apr, [facility] [place] [facility] [address] [id number] [place] [address]- 7798 Apr, [facility] [place] [facility] [address] [id number] [place] [address]- 6390 Apr, [facility] [place] [facility] [address] [id number] [place] [address]- 8619 Apr, [facility] [place] [facility] [address] [id number] [place] [address]- 2477 Apr, [facility] [place] [facility] [address] [id number] [place] [address]- 2140 Apr, [facility] [place] [facility] [address] [id number] [place] [address]- 2975 Apr, [facility] [place] [facility] [address] [id number] [place] [address]- 3851 Apr, [facility] [place] [facility] [address] [id number] [facility] [place] [address] Apr, [facility] [place] [facility] [address] [id number] [place] [address] Apr, [facility] [place] [facility] [address] [id number] [place] [address] Apr, [facility] [place] [facility] [address] [id number] [place] [address] Apr, [facility] [place] [facility] [address] [id number] [place] [address] Apr, [facility] [place] [facility] [address] [id number] [place] [address] Apr, [facility] [place] [facility] [address] [id number] [place] [address] Apr, [facility] [place] [facility] [address] [id number] [place] [address] Mar, [facility] [place] [facility] [address] [id number] [place] [address] Mar, [facility] [place] [facility] [address] [id number] [place] [address] Mar, [facility] [place] [facility] [address] [id number] [place] [address] Mar, [facility] [place] [facility] [address] [id number] [place] [address] Mar, [facility] [place] [facility] [address] [id number] [place] [address] Mar, [facility] [place] [facility] [address] [id number] [place] [address] Mar, [facility] [place] [facility] [address] [id number] [place] [address] Mar, [facility] [place] [facility] [address] [id number], [place] [address] Mar, [facility] [place] [facility] [address] [id number] [place] [address] Mar, [facility] [place] [facility] [address] [id number] [place] [address] Mar, [facility] [place] [facility] [address] [id number] [place] [address] Mar, [facility] [place] [facility] [address] [id number] [place] [address] Mar, [facility] [address] [id number] [place] [address] Mar, [facility] [place] [facility] [address] [id number] [place] [address] Mar, [facility] [place] [facility] [address] [id number] [place] [address] February, [facility] [place] [facility] [address] [id number] [place] [address] February, [facility] [place] [facility] [address] [id number] [place] [address] February, [facility] [place] [facility] [address] [id number] [place] [address] February, [facility] [place] [facility] [address] [id number] [place] [address] February, [facility] [place] [facility] [address] [id number] [place] [address] February, [facility] [place] [facility] [address] [id number] [place] [address] February, [facility] [place] [facility] [address] [id number] [place] [address] February, [facility] [place] [facility] [address] [id number] [place] [address]- [address] February, [facility] [place] [facility] [address] [id number] [place] [address] February, [facility] [place] [facility] [address] [id number] [place] [address] Jan, [facility] [place] [facility] [address] [id number] [place] [address] Jan, [facility] [place] [facility] [address] [id number] [place] [address]- [address] Jan, [facility] [place] [facility] [address] [id number] [place] [address] Jan, [facility] [place] [facility] [address] [id number] [place] [address]- [address] Jan, [facility] [place] [facility] [address] [id number] [place] [address] Jan, [facility] [place] [facility] [address] [id number] [place] [address] Dec, [facility] [place] [facility] [address] [id number] [place] [address] Dec, [facility] [place] [facility] [address] [id number] [place] [address] Oct, [facility] [place] [facility] [address] [id number] [place] [address] Oct, [facility] [place] [facility] [address] [id number] [place] [address]- [address] Sep, [facility] [place] [facility] [address] [id number] [place] [address] Sep, [facility] [place] [facility] [address] [id number] [place] [address] Sep, [facility] [place] [facility] [address] [id number] [place] [address] Sep, [facility] [place] [facility] [address] [id number] [place] [address] Sep, [facility] [place] [facility] [address] [id number] [place] [address] Aug, [facility] [place] [facility] [address] [id number] [place] [address] Aug, [facility] [place] [facility] [address] [id number] [place] [address] Aug, [facility] [place] [facility] [address] [id number], [place] [address] Aug, [facility] [place] [facility] [address] [id number] [place] [address] Aug, [facility] [place] [facility] [address] [id number] [place] [address] Aug, [facility] [place] [facility] [address] [id number] [place] [address] Aug, [facility] [place] [facility] [address] [id number] [place] [address] Aug, [facility] [place] [facility] [address] [id number] [place] [address] Aug, [facility] [place] [facility] [address] [id number] [place] [address] Aug, [facility] [place] [facility] [address] [id number] [place] [address] Aug, [facility] [place] [facility] [address] [id number] [place] [address] Jul, [facility] [place] [facility] [address] [id number] [place] [address] Jul, [facility] [place] [facility] [address] [id number] [place] [address] Jul, [facility] [place] [facility] [address] [id number], [place] [address] Jul, [facility] [place] [facility] [address] [id number], [place] [address] February, [facility] [place] [facility] [address] [id number] [place] [address] Jan, [facility] [place] [facility] [address] [id number], [place] [address] 18 Jan, 2013 [facility] [place] [facility] [address] [id number], [place] [address] Jan, [facility] [place] [facility] [address] [id number] [place] [address] 31 Dec, 2012 [facility] [address] [id number] [place] [address] 30 Dec, 2012 [facility] [address] [id number] [place] [address] 28 Dec, 2012 [facility] [address] [id number] [place] [address] 25 Dec, 2012 [facility] [address] [id number] [place] [address] 05 Dec, 2012 [facility] [address] [id number] [place] [address] 31 Oct, 2012 [facility] [address] [id number] [place] [address] 30 Oct, 2012 [facility] [address] [id number] [place] [address] Oct, [facility] [address] [id number] [place] [address] 17 Oct, 2012 [facility] [address] [id number] [place] [address] Sep, [facility] [address] [id number] [place] [address] Sep, [facility] [address] [id number] [place] [address] Sep, [facility] [address] [id number] [place] [address] Aug, [facility] [address] [id number] [place] [address] Aug, [facility] [address] [id number] [place] [address] Aug, [facility] [address] [id number] [place] [address] Aug, [facility] [address] [id number], [place] [address] Aug, [facility] [id number], [place] [address] Jul, [facility] [id number], [place] [address] Jul, [facility] [id number], [place] [address] Jul, [facility] [id number], [place] [address] Jul, [facility] [id number], [place] [address] Jul, [facility] [id number], [place] [address] Jul, [facility] [id number], [place] [address] Dec, [facility] [id number], [place] [address] Dec, [facility] [id number], [place] [address] Jun, [facility] [id number], [place] [address] Mar, [facility] [id number], [place] [address] Jun, IMMUNIZATIONS No Known Immunizations SOCIAL HISTORY Never Assessed REASON FOR VISIT Physical work--[employer], -Physical for employment at daycare center, -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 48-72 hours Reason: VITAL SIGNS Height 68 in 2018-02-05 Weight 135.0 lbs 2018-02-05 Temperature 98.1 degrees Fahrenheit 2018-02-05 Heart Rate 80 bpm 2018-02-05 Respiratory Rate 16 2018-02-05 BMI 20.52 kg/m2 2018-02-05 Blood pressure systolic 100 mmHg 2018-02-05 Blood pressure diastolic 58 mmHg 2018-02-05 MEDICATIONS Medication Instructions Dosage Frequency Start Date End Date Duration Status Nexplanon 68 MG Active Ondansetron 4 MG Orally every 8 hrs 1 tablet on the tongue and allow to dissolve 8h Oct, 07 days Not-Taking RESULTS No Results PROCEDURES Procedure Date Ordered Result Body Site TB INTRADERMAL 2018-02-05 N/A TB INTRADERMAL TEST February 05, 2018 INSTRUCTIONS MEDICATIONS ADMINISTERED No Known Medications MEDICAL (GENERAL) HISTORY Type Description Date Medical History High risk sexual behavior Medical History attention deficit hyperactivity disorder Surgical History tonsillectomy Surgical History tubes in ears Surgical History Dental Sugery Hospitalization History childbirth only
--- OUTSIDE RECORDS SUMMARY | 2018-09-26 14:40 | XMS REPORT ---
Author Author PHILIP NICOLE Organization [facility] Address [address] [address] Care Team Providers Care Product Engineer Name Role Phone PHILIP NICOLE Unavailable PROBLEMS Type Condition ICD9-CM Code RLI19-GM Code Onset Dates Condition Status SNOMED Code Problem Physical exam, pre-employment Z02.1 Active 133256328 Problem Non-seasonal allergic rhinitis due to pollen J30.1 Active 25283495 Problem ADHD (attention deficit hyperactivity disorder), combined type F90.2 Active 66451339 ALLERGIES No Information ENCOUNTERS Encounter Location Date Diagnosis [place] [id number] [place] [address] 21584- 0094 Mar, [place] [address] [place] [id number] [place] [address] 85212- 9106 Mar, Well woman exam with routine gynecological exam Z01.419 ; Screen for STD (sexually transmitted disease) Z11.3 ; Vaginal candidiasis B37.3 and High risk sexual behavior Z72.51 [place] [id number] [place] [address] 47735- 0730 Jan, Visit for TB skin test Z11.1 [facility] [id number] [address] Jan, H. pylori infection A04.8 [place] [address] [place] [id number] [place] [address] 19237- 2608 Jan, Physical exam, pre-employment Z02.1 and Visit for TB skin test Z11.1 [place] [address] [place] [id number] [place] [address] 00256- 8127 Jan, Weight loss R63.4 [place] [address] 89407- 3929 Jan, Weight loss R63.4 [place] [address] 18047- 3019 Jan, Weight loss R63.4 ; Diarrhea, unspecified type R19.7 and Nausea R11.0 [place] [address] 8[address]55- 0433 Oct, Viral gastroenteritis A08.4 ; Fever, unspecified fever cause R50.9 ; Non-seasonal allergic rhinitis due to pollen J30.1 and Influenza A J10.1 [place] [address] 71554- 0063 Dec, Ingrowing toenail with infection L60.0 [place] [address] 77793- 7627 Nov, Ingrowing toenail with infection L60.0 [place] [address] 53869- 2509 Nov, [place] [address] 36529- 4094 Nov, [place] [address] 89812- 7988 Nov, ADHD (attention deficit hyperactivity disorder), combined type F90.2 [facility] [address] [place] [id number] [place] [address] 81889 -0187 Nov, Sore throat J02.9 and Acute nasopharyngitis (common cold) J00 [place] [address] 17070- 8043 Oct, [facility] [address] 05136- 9744 Aug, [place] [address] 59856- 9122 Aug, Routine gynecological examination Z01.419 ; Nexplanon in place Z97.5 and Dysuria R30.0 [facility] [address] [place] [id number] [place] [address] 16454- 6004 09 Aug, 2016 [facility] [address] [place] [id number] [place] [address] 52137- 1627 Aug, [facility] [address] [place] [id number] [place] [address] 85212 -5523 Jul, Acute cystitis without hematuria N30.00 [facility] [address] [place] [id number] [place] [address] 37416 -7321 18 Jun, 2016 Dysuria R30.0 and Acute cystitis with hematuria N30.01 [facility] [address] [place] [id number] [place] [address] 69080- 6770 14 Jun, 2016 [facility] [address] [place] [id number] [place] [address] 72602 -2830 Jun, Vaginal yeast infection B37.3 [facility] [address] [place] [id number] [place] [address] 80240- 8283 May, [facility] [address] [place] [id number] [place] [address] 32063 -0369 Apr, Infection B99.9 [facility] [address] [place] [id number] [place] [address] 75291- 4318 Apr, [facility] [address] [place] [id number] [place] [address] 54599- 4181 Apr, [facility] [address] [place] [id number] [place] [address] 09047- 1724 Apr, [facility] [address] [place] [id number] [place] [address] 37238- 1231 Apr, [facility] [address] [place] [id number] [place] [address] 58931- 5973 Mar, Ingrown toenail L60.0 [facility] [address] [place] [address] 8934 07 Mar, 2016 [facility] [address] [facility] [id number], [place] [address] 8004 Mar, [facility] [address] [id number] [place] [address] Mar [facility] [address] [facility] [id number] [address] 2293 February, Ingrown right big toenail L60.0 [facility] [address] [facility] [id number], [place] [address] 1743 February, [facility] [address] [id number] [address]- 7032 February, [facility] [address]100[place], [place] [address]- 6225 February, Ingrowing right great toenail L60.0 and Overweight (BMI 25.0 -29.9) E66.3 [facility] [address] [place] [id number] [address]- 3270 February, [facility] [address], [place] [address]- 1100 February, [facility] [address] [id number] [place] [address] February [facility] [address] [id number] [place] [address] February [facility] [address] [facility] [id number], [place] [address]- 0446 Jan, [facility] [address] [facility] [id number] [address]- 9713 Jan, [facility] [address] [facility] [id number], [place] [address]- 6078 Jan, [facility] [address] [place] [id number], [place] [address]- 4862 Jan, [facility] [address]100[place], [place] [address]- 2851 Dec, [facility] [id number] [place] [address] 75808- 5248 Dec, [facility] [address], [place] [address] Dec, Vaginal candidiasis B37.3 [facility] [id number] [address] Dec, [facility] [address] [place] [address] 02050- 7764 Dec, [facility] [address] [place] [id number] [place] [address] 55625- 9174 Dec, Encounter for test, result unknown Z32.00 [facility] [address] [place] [id number] [place] [address] 10283- 4142 Oct, Nail, ingrown L60.0 and Infected nailbed of toe L03.039 [facility] [address] [place] [address] 74077- 3430 Oct, [facility] [address] [place] [address] 73864- 2716 Oct, [facility] [id number] [place] [address] 64093- 8029 Oct, [facility] [id number] [place] [address] 33706- 6271 Sep, [facility] [address] [id number] [place] [address] Sep [facility] [address] [id number] [place] [address] Sep [facility] [address], [place] [address] 08 Sep, 2015 Frequent urination R35.0 ; Irregular menses N92.6 ; Abdominal cramping R10.9 ; Surveillance of implantable subdermal contraceptive Z30.49 ; Unprotected sexual intercourse Z72.51 and Vaginal itching L29.8 [facility] [address] [id number] [place] [address] Aug [facility] [address], [place] [address]- 7842 Aug, [facility] [address] [place] [address] 03082- 6155 Aug, [facility] [address], [place] [address]- 7834 Jul, [facility] [address] [place] [address] 29392- 7477 Jul, [facility] [address] [place] [address] 88287- 5305 Jul, Routine follow-up Z39.2 ; Vaginal itching L29.8 ; Leaking of urine R32 ; General counseling and advice for contraceptive management Z30.09 ; Change in vision H53.9 and Evaluation for contraceptive implant Z30.018 [facility] [address], [place] [address]- 6666 Jul, [facility] [address]100[place], [place] [address]- 5992 Jun, [facility] [address], [place] [address]- 5939 Jun, [facility] [address], [place] [address]- 2174 16 Jun, 2015 [facility] [address], [place] [address]- 4098 Jun, [facility] [address] [place] [address] 67419- 3968 Jun, Cough 786.2 [facility] [address], [place] [address]- 8547 Jun, [facility] [address] [place] [id number], [place] [address]- 7894 15 Jun, 2014 [facility] [address] [id number] [address]- 0790 14 Jun, 2014 [facility] [address] [facility] [id number] [place] [address]- 3287 14 Jun, 2014 [facility] [address] [facility] [id number], [place] [address]- 4113 Jun, 2014 [facility] [address] [facility] [id number] [address]- 8232 Jun, 2014 [facility] [address] [facility] [id number] [place] [address], [place] [address]- 4630 Jun, 2014 Supervision of normal first V22.0 [facility] [address] [facility] [id number], [place] [address]- 6068 Jun, 2014 [facility] [address] [facility] [id number], [place] [address]- 5165 Jun, 2014 [facility] [address] [facility] [id number] [address]- 2932 Jun, Supervision of normal first V22.0 [facility] [address] [place] [id number], [place] [address]- 7619 May, [facility] [address] [facility] [id number], [place] [address]- 7011 May, Supervision of normal first V22.0 [facility] [address] [facility] [id number][place] [address]- 8448 May, Supervision of normal first V22.0 [facility] [address] [facility] [id number], [place] [address]- 9101 Apr, Supervision of normal first V22.0 [facility] [address] [facility] [id number], [place] [address]- 7327 Apr, [facility] [address] [facility] [id number] [place] [address]- 9432 Apr, [facility] [address] [facility] [id number] [place]- 4118 Apr, Supervision of normal first V22.0 [facility] [address] [facility] [id number] [place] [address]- 3996 Apr, [facility] [address] [facility] [id number] [place] [address]- 7747 Apr, Supervision of normal first V22.0 [facility] [address] [facility] [id number] [place] [address]- 7133 Mar, [facility] [address] [facility] [id number] [place] [address]- 8026 Mar, Supervision of normal first V22.0 [facility] [address] [place] [id number] [place] [address]- 1530 February, [facility] [address] [facility] [id number] [place] [address]- 5398 February, Supervision of normal first V22.0 [facility] [address] [facility] [id number] [place] [address]- 6114 Jan, [facility] [address] [facility] [id number] 9785 Jan, [facility] [address] [facility] [id number], [place] [address]- 9085 Dec, [facility] [address] [facility] [id number], [place] [address]- 9252 Dec, [facility] [address] [facility] [id number] [place] [address]- 6385 Dec, [facility] [address] [facility] [id number] [place] [address]- 4326 Dec, [facility] [address] [facility] [id number], [place] [address]- 1934 Dec, [facility] [place] [facility] [address] [id number] [place] [address]- 0560 16 Dec, 2014 [facility] [place] [facility] [address] [id number] [place] [address]- 6481 11 Dec, 2014 [facility] [place] [facility] [address] [id number] [place] [address]- 6174 11 Dec, 2014 [facility] [place] [facility] [address] [id number] [place] [address]- 8204 10 Dec, 2014 [facility] [place] [facility] [address] [id number] [place] [address]- 0441 10 Dec, 2014 [facility] [place] [facility] [address] [id number] [place] [address]- 3506 10 Dec, 2014 [facility] [place] [facility] [address] [id number] [place] [address]- 0759 10 Dec, 2014 [facility] [place] [facility] [address] [id number] [place] [address]- 5993 06 Dec, 2014 [facility] [place] [facility] [address] [id number] [place] [address]- 7900 Dec, [facility] [place] [facility] [address] [id number] [place] [address]- 9166 Dec, [facility] [place] [facility] [address] [id number] [place] [address]- 1436 27 Nov, 2014 [facility] [place] [facility] [address] [id number] [place] [address]- 0546 Nov, 2014 [facility] [place] [facility] [address] [id number] [place] [address]- 6456 Nov, 2014 [facility] [place] [facility] [address] [id number] [place] [address]- 2406 Nov, 2014 [facility] [place] [facility] [address] [id number] [place] [address]- 7327 Nov, [facility] [place] [facility] [address] [id number] [place] [address]- 7092 Nov, 2014 [facility] [place] [facility] [address] [id number] [place] [address]- 0906 Nov, 2014 [facility] [place] [facility] [address] [id number] [place] [address]- 7846 Nov, 2014 [facility] [place] [facility] [address] [id number] [place] [address]- 5946 Nov, 2014 [facility] [place] [facility] [address] [id number] [place] [address]- 9795 Nov, 2014 [facility] [place] [facility] [address] [id number] [place] [address]- 5283 Nov, 2014 [facility] [place] [facility] [address] [facility] [id number] [place] [address]- 5707 Nov, 2014 [facility] [place] [facility] [address] [id number] [place] [address]- 9676 Oct, [facility] [place] [facility] [address] [id number] [place] [address]- 9245 Oct, [facility] [place] [facility] [address] [facility] [id number] [place] [address]- 9284 Oct, [facility] [place] [facility] [address] [facility] [id number] [place] [address]- 3914 Oct, [facility] [place] [facility] [address] [id number] [place] [address]- 0484 Oct, [facility] [place] [facility] [address] [id number] [place] [address]- 1577 Oct, [facility] [place] [facility] [address] [id number] [place] [address]- 5879 Sep, [facility] [place] [facility] [address] [id number] [place] [address]- 9386 Sep, [facility] [place] [facility] [address] [id number] [place] [address]- 8933 Sep, [facility] [place] [facility] [address] [id number] [place] [address]- 9791 Sep, [facility] [place] [facility] [address] [id number] [place] [address]- 2447 Sep, [facility] [place] [facility] [address] [id number] [place] [address]- 0349 Sep, [facility] [place] [facility] [address] [id number] [place] [address]- 7301 Sep, [facility] [place] [facility] [address] [id number] [place] [address]- 5559 Sep, [facility] [place] [facility] [address] [id number] [place] [address]- 9494 Aug, [facility] [place] [facility] [address] [id number] [place] [address]- 5500 Aug, [facility] [place] [facility] [address] [id number] [place] [address]- 4799 Aug, [facility] [place] [facility] [address] [id number] [place] [address]- 7403 Aug, [facility] [place] [facility] [address] [id number], [place] [address]- 0598 Jul, [facility] [place] [facility] [address] [id number], [place] [address]- 3254 Jul, [facility] [place] [facility] [address] [id number], [place] [address]- 5311 Jul, [facility] [place] [facility] [address] [id number] [place] [address]- 1468 Jun, [facility] [place] [facility] [address] [id number] [place] [address]- 9037 30 Jun, 2014 [facility] [place] [facility] [address] [id number] [place] [address]- 4329 24 Jun, 2014 [facility] [place] [facility] [address] [id number] [place] [address]- 4994 24 Jun, 2013 [facility] [place] [facility] [address] [id number] [place] [address]- 4764 18 Jun, 2013 [facility] [place] [facility] [address] [id number] [place] [address]- 4875 18 Jun, 2013 [facility] [place] [facility] [address] [id number] [place] [address]- 8736 15 Jun, 2013 [facility] [place] [facility] [address] [id number] [place] [address]- 3403 15 Jun, 2013 [facility] [place] [facility] [address] [id number] [place] [address]- 1710 12 Jun, 2014 [facility] [place] [facility] [address] [id number] [place] [address]- 7211 11 Jun, 2014 [facility] [place] [facility] [address] [id number] [place] [address]- 9021 10 Jun, 2014 [facility] [place] [facility] [address] [id number] [place] [address]- 4754 08 Jun, 2014 [facility] [place] [facility] [address] [id number] [place] [address]- 6203 08 Jun, 2014 [facility] [place] [facility] [address] [id number] [place] [address]- 5645 20 May, 2014 [facility] [place] [facility] [address] [id number] [place] [address]- 7280 May, [facility] [place] [facility] [address] [id number] [place] [address]- 4953 May, [facility] [place] [facility] [address] [id number] [place] [address]- 9815 May, [facility] [place] [facility] [address] [id number] [place] [address]- 8725 May, [facility] [place] [facility] [address] [id number] [place] [address]- 0115 Apr, [facility] [place] [facility] [address] [id number] [facility] [place] [address]- 8356 Apr, [facility] [place] [facility] [address] [id number] [place] [address]- 3326 Apr, [facility] [place] [facility] [address] [id number] [place] [address]- 7702 Apr, [facility] [place] [facility] [address] [id number] [place] [address]- 0284 Apr, [facility] [place] [facility] [address] [id number] [place] [address]- 9488 Apr, [facility] [place] [facility] [address] [id number] [place] [address]- 6739 Apr, [facility] [place] [facility] [address] [id number] [place] [address]- 4993 Apr, [facility] [place] [facility] [address] [id number] [place] [address]- 2573 Apr, [facility] [place] [facility] [address] [id number] [place] [address] Apr, [facility] [place] [facility] [address] [id number] [place] [address] Apr, [facility] [place] [facility] [address] [id number] [place] [address] Apr, [facility] [place] [facility] [address] [id number] [place] [address] Apr, [facility] [place] [facility] [address] [id number] [facility] [place] [address] Apr, [facility] [place] [facility] [address] [id number] [place] [address] Apr, [facility] [place] [facility] [address] [id number] [place] [address] Apr, [facility] [place] [facility] [address] [id number] [place] [address] Apr, [facility] [place] [facility] [address] [id number] [place] [address] Apr, [facility] [place] [facility] [address] [id number] [place] [address] Apr, [facility] [place] [facility] [address] [id number] [place] [address] Mar, [facility] [place] [facility] [address] [id number] [place] [address] Mar, [facility] [place] [facility] [address] [id number] [place] [address] Mar, [facility] [place] [facility] [address] [id number] [place] [address] Mar, [facility] [place] [facility] [address] [id number] [place] [address] Mar, [facility] [place] [facility] [address] [id number] [place] [address]- [address] Mar, [facility] [place] [facility] [address] [id number] [place] [address] Mar, [facility] [place] [facility] [address] [id number] [place] [address] Mar, [facility] [place] [facility] [address] [id number] [place] [address] Mar, [facility] [address] [id number], [place] [address] Mar, [facility] [address] [id number] [place] [address] Mar, [facility] [facility] [address] [id number] [place] [address]- [address] Mar, [facility] [place] [facility] [address] [id number] [place] [address]- [address] Mar, [facility] [place] [facility] [address] [id number] [place] [address] Mar, [facility] [address] [id number] [place] [address] Mar, [facility] [address] [id number] [place] [address] February, [facility] [address] [id number] [place] [address] February, [facility] [address] [id number] [place] [address] February, [facility] [address] [id number] [place] [address] February, [facility] [address] [id number] [place] [address] February, [facility] [address] [id number] [place] [address]- [address] February, [facility] [address] [id number] [place] [address]- [address] February, [facility] [address] [id number] [place] [address]- [address] February, [facility] [address] [id number] [place] [address]- [address] February, [facility] [address] [id number] [place] [address]- [address] February, [facility] [address] [id number] [place] [address] Jan, [facility] [address] [id number] [place] [address] Jan, [facility] [address] [id number] [place] [address] Jan, [facility] [address] [id number] [place] [address]- [address] Jan, [facility] [address] [id number] [place] [address] Jan, [facility] [address] [id number] [place] [address]- [address] Jan, [facility] [address] [id number] [place] [address]- [address] Dec, [facility] [address] [id number] [place] [address]- [address] Dec, [facility] [address] [id number] [place] [address]- [address] Oct, [facility] [address] [id number] [place] [address]- [address] Oct, [facility] [address] [id number] [place] [address]- [address] Sep, [facility] [address] [id number] [place] [address]- [address] Sep, [facility] [address] [id number] [place] [address]- [address] Sep, [facility] [address] [id number] [place] [address]- [address] Sep, [facility] [address] [id number] [place] [address] Sep, [facility] [address] [address] [id number], [place] [address] Aug, [facility] [place] [facility] [address] [id number] [place] [address] Aug, [facility] [place] [facility] [address] [id number] [place] [address] Aug, [facility] [place] [facility] [address] [id number] [place] [address] Aug, [facility] [place] [facility] [address] [id number], [place] [address] Aug, [facility] [place] [facility] [address] [id number] [place] [address] Aug, [facility] [place] [facility] [address] [id number] [place] [address] Aug, [facility] [place] [facility] [address] [id number] [place] [address] Aug, [facility] [place] [facility] [address] [id number] [place] [address] Aug, [facility] [place] [facility] [address] [id number] [place] [address] Aug, [facility] [place] [facility] [address] [id number] [place] [address] Aug, [facility] [place] [facility] [address] [id number] [place] [address] Jul, [facility] [place] [facility] [address] [id number] [place] [address] Jul, [facility] [place] [facility] [address] [id number] [place] [address] Jul, [facility] [place] [facility] [address] [id number] [place] [address] Jul, [facility] [place] [facility] [address] [id number], [place] [address] February, [facility] [place] [facility] [address] [id number], [place] [address] Jan, [facility] [place] [facility] [address] [id number] [place] [address] 18 Jan, 2013 [facility] [place] [facility] [address] [id number] [place] [address] 10 Jan, 2013 [facility] [place] [facility] [address] [id number] [place] [address] Dec, [facility] [place] [facility] [address] [id number] [place] [address] 30 Dec, 2012 [facility] [address] [id number] [place] [address] 28 Dec, 2012 [facility] [place] [facility] [address] [id number] [place] [address] 25 Dec, 2012 [facility] [address] [id number] [place] [address]- [address] 05 Dec, 2012 [facility] [place] [facility] [address] [id number] [place] [address] 31 Oct, 2012 [facility] [address] [id number] [place] [address] 30 Oct, 2012 [facility] [address] [id number] [place] [address] Oct, [facility] [address] [id number] [place] [address] 17 Oct, 2012 [facility] [address] [id number] [place] [address] 15 Sep, 2012 [facility] [address] [id number] [place] [address] Sep, [facility] [address] [id number] [place] [address] Sep, [facility] [place] [facility] [address] [id number] [place] [address] Aug, [facility] [place] [facility] [address] [id number] [place] [address] Aug, [facility] [place] [facility] [address] [id number] [place] [address] Aug, [facility] [place] [facility] [address] [id number] [place] [address] Aug, [facility] [place] [facility] [address] [id number] [place] [address] Aug, [facility] [id number], [place] [address] Jul, [facility] [id number], [place] [address] Jul, [facility] [id number], [place] [address] Jul, [facility] [id number] [place] [address]- [address] Jul, [facility] [id number] [place] [address]- [address] Jul, [facility] [id number] [place] [address]- [address] Jul, [facility] [id number] [place] [address]- [address] Dec, [facility] [id number] [place] [address]- [address] Dec, [facility] [address], [place] [address] 16 Jun, 2009 [facility] [id number], [place] [address] Mar, [facility] [address], [place] [address] 10 Jun, 2008 IMMUNIZATIONS No Known Immunizations SOCIAL HISTORY Never Assessed REASON FOR VISIT Lab (walk-in) PLAN OF CARE VITAL SIGNS MEDICATIONS Unknown Medications RESULTS No Results PROCEDURES Procedure Date Ordered Result Body Site C DIFF AMPLIFIED PROBE February 05, 2018 HPYLORI, STOOL, EIA February 05, 2018 INSTRUCTIONS MEDICATIONS ADMINISTERED No Known Medications MEDICAL (GENERAL) HISTORY Type Description Date Medical History High risk sexual behavior Medical History attention deficit hyperactivity disorder Surgical History tonsillectomy Surgical History tubes in ears Surgical History Dental Sugery Hospitalization History childbirth only
--- OUTSIDE RECORDS SUMMARY | 2018-09-26 14:40 | XMS REPORT ---
Author Author PHILIP NICOLE Organization [facility] Address [address] [address] Care Team Providers Care Rn Acute Dialysis Name Role Phone PHILIP NICOLE Unavailable PROBLEMS Type Condition ICD9-CM Code [id number] Code Onset Dates Condition Status SNOMED Code Problem Physical exam, pre-employment Z02.1 Active 630564119 Problem Non-seasonal allergic rhinitis due to pollen J30.1 Active 95098157 Problem ADHD (attention deficit hyperactivity disorder), combined type F90.2 Active [id number] ALLERGIES No Information ENCOUNTERS Encounter Location Date Diagnosis [place] [id number] [place] [address] 18853- 5141 Mar, [place] [address] [place] [id number] [place] [address] 29996- 3458 Mar, Well woman exam with routine gynecological exam Z01.419 ; Screen for STD (sexually transmitted disease) Z11.3 ; Vaginal candidiasis B37.3 and High risk sexual behavior Z72.51 [place] [id number] [place] [address] 60597- 9343 Jan, Visit for TB skin test Z11.1 [facility] [id number] [address] Jan, H. pylori infection A04.8 [place] [address] [place] [id number] [place] [address] 27193- 1565 Jan, Physical exam, pre-employment Z02.1 and Visit for TB skin test Z11.1 [place] [address] [place] [id number] [place] [address] 71783- 9480 Jan, Weight loss R63.4 [place] [address] [address]76- 2211 Jan, Weight loss R63.4 [place] [address] 74838- 7833 Jan, Weight loss R63.4 ; Diarrhea, unspecified type R19.7 and Nausea R11.0 [place] [address] 63265- 6375 Oct, Viral gastroenteritis A08.4 ; Fever, unspecified fever cause R50.9 ; Non-seasonal allergic rhinitis due to pollen J30.1 and Influenza A J10.1 [place] [address] [address]- 4979 Dec, Ingrowing toenail with infection L60.0 [place] [address] 45986- 9684 Nov, Ingrowing toenail with infection L60.0 [place] [address] 01481- 4526 Nov, [place] [address] 85790- 8922 Nov, [place] [address] 14657- 2670 Nov, ADHD (attention deficit hyperactivity disorder), combined type F90.2 [facility] [address] [place] [id number] [place] [address] 63644 -6924 Nov, Sore throat J02.9 and Acute nasopharyngitis (common cold) J00 [place] [address] 78513- 5917 Oct, [facility] [address] 96029- 9382 Aug, [place] [address] 19216- 0623 Aug, Routine gynecological examination Z01.419 ; Nexplanon in place Z97.5 and Dysuria R30.0 [facility] [address] [place] [id number] [place] [address] 61633- 9467 09 Aug, 2016 [facility] [address] [place] [address] [id number] [place] [address] 17785- 1886 Aug, [facility] [address] [id number] [place] [address] 50002 -6533 Jul, Acute cystitis without hematuria N30.00 [facility] [address] [place] [id number] [place] [address] 97443 -2299 18 Jun, 2016 Dysuria R30.0 and Acute cystitis with hematuria N30.01 [facility] [address] [id number] [place] [address] 92959- 1335 14 Jun, 2016 [facility] [address] [id number] [place] [address] 21649 -0218 Jun, Vaginal yeast infection B37.3 [facility] [address] [id number] [place] [address] 39222- 8893 May, [facility] [address] [id number] [place] [address] 03684 -0887 Apr, Infection B99.9 [facility] [address] [place] [id number] [place] [address] 94062- 1479 Apr, [facility] [address] [id number] [place] [address] 64791- 8056 Apr, [facility] [address] [id number] [place] [address] 29687- 7552 Apr, [facility] [address] [id number] [place] [address] 01291- 2657 Apr, [facility] [address] [id number] [place] [address] 60549- 3251 Mar, Ingrown toenail L60.0 [facility] [address] [place] [address] [place] [address] 7683 07 Mar, 2016 [facility] [address] [facility] [id number], [place] [address] 7593 Mar, [facility] [address] [id number] [address] Mar [facility] [address] [facility] [id number][place] [address]- 8127 February, Ingrown right big toenail L60.0 [facility] [address] [facility] [id number], [place] [address]- 9134 February, [facility] [address] [place] [id number], [place] [address]- 9088 February, [facility] [address], [place] [address]- 3656 February, Ingrowing right great toenail L60.0 and Overweight (BMI 25.0 -29.9) E66.3 [facility] [address] [address] [id number], [place] [address]- 0869 February, [facility] [address], [place] [address]- 2605 February, [facility] [address] [id number] [place] [address] February [facility] [address] [id number] [place] [address] February [facility] [address] [facility] [id number], [place] [address]- 4093 Jan, [facility] [address] [facility] [id number], [place] [address]- 2840 Jan, [facility] [address] [facility] [id number], [place] [address]- 3954 Jan, [facility] [address] [place] [address] [id number], [place] [address]- 8338 Jan, [facility] [address]100[place], [place] [address]- 2338 Dec, [facility] [id number] [place] [address] 19032- 5953 Dec, [facility] [address]00565100[place], [place] [address] Dec, Vaginal candidiasis B37.3 [facility] [id number] [address] Dec, [facility] [id number] [place] [address] 42417- 6676 Dec, [facility] [address] [place] [id number] [place] [address] 17131- 2129 Dec, Encounter for test, result unknown Z32.00 [facility] [address] [place] [id number] [place] [address] 92300- 3938 Oct, Nail, ingrown L60.0 and Infected nailbed of toe L03.039 [facility] [id number] [place] [address] 14361- 7011 Oct, [facility] [address] [place] [address] 40337- 0277 Oct, [facility] [id number] [place] [address] 25582- 8521 Oct, [facility] [address] [place] [address] 66915- 8193 Sep, [facility] [address] [id number] [place] [address] Sep [facility] [id number] [place] [address] Sep [facility] [address], [place] [address]- 4057 08 Sep, 2015 Frequent urination R35.0 ; Irregular menses N92.6 ; Abdominal cramping R10.9 ; Surveillance of implantable subdermal contraceptive Z30.49 ; Unprotected sexual intercourse Z72.51 and Vaginal itching L29.8 [facility] [address] [id number] [place] [address] Aug [facility] [address], [place] [address]- 9814 Aug, [facility] [address] [place] [address] 92896- 4839 Aug, [facility] [address], [place] [address]- 7685 Jul, [facility] [address] [place] [address] 20625- 8607 Jul, [facility] [address] [place] [address] 49320- 3845 Jul, Routine follow-up Z39.2 ; Vaginal itching L29.8 ; Leaking of urine R32 ; General counseling and advice for contraceptive management Z30.09 ; Change in vision H53.9 and Evaluation for contraceptive implant Z30.018 [facility] [address], [place] [address]- 8612 Jul, [facility] [address], [place] [address]- 4832 Jun, [facility] [address], [place] [address]- 5917 Jun, [facility] [address], [place] [address]- 5699 16 Jun, 2015 [facility] [address], [place] [address]- 3694 Jun, [facility] [address] [place] [address] 45169- 7686 Jun, Cough 786.2 [facility] [address], [place] [address]- 4758 Jun, [facility] [address] [id number], [place] [address]- 0063 15 Jun, 2014 [facility] [address] [id number], [place] [address]- 9708 14 Jun, 2014 [facility] [address] [facility] [id number] [place] [address]- 7241 14 Jun, 2014 [facility] [address] [facility] [id number], [place] [address]- 0977 Jun, 2014 [facility] [address] [facility] [id number], [place] [address]- 1178 Jun, 2014 [facility] [address] [facility] [id number] [place] [address], [place] [address]- 4057 Jun, 2014 Supervision of normal first V22.0 [facility] [address] [facility] [id number][place] [address]- 6136 Jun, 2014 [facility] [address] [facility] [id number][place] [address]- 9640 Jun, 2014 [facility] [address] [facility] [id number], [place] [address]- 4910 Jun, Supervision of normal first V22.0 [facility] [address] [id number], [place] [address]- 5341 May, [facility] [address] [facility] [id number][place] [address]- 5070 May, Supervision of normal first V22.0 [facility] [address] [facility] [id number], [place] [address]- 3234 May, Supervision of normal first V22.0 [facility] [address] [facility] [id number], [place] [address]- 7303 Apr, Supervision of normal first V22.0 [facility] [address] [facility] [id number], [place] [address]- 1621 Apr, [facility] [address] [facility] [id number] [place] [address]- 6684 Apr, [facility] [address] [facility] [id number] [place] 2216 Apr, Supervision of normal first V22.0 [facility] [address] [facility] [id number] [place] [address]- 8166 Apr, [facility] [address] [facility] [id number] [place] [address]- 7609 Apr, Supervision of normal first V22.0 [facility] [address] [facility] [id number] [place] [address]- 9029 Mar, [facility] [address] [facility] [id number] [place] [address]- 3136 Mar, Supervision of normal first V22.0 [facility] [address] [id number] [place] [address]- 9792 February, [facility] [address] [facility] [id number] [place] [address]- 5885 February, Supervision of normal first V22.0 [facility] [address] [facility] [id number] [place] [address]- 4595 Jan, [facility] [address] [facility] [id number] 3057 Jan, [facility] [address] [facility] [id number][place] [address]- 4374 Dec, [facility] [address] [facility] [id number][place] [address]- 5336 Dec, [facility] [address] [facility] [id number] [place] [address]- 0148 Dec, [facility] [address] [facility] [id number] [place] [address]- 3056 Dec, [facility] [address] [facility] [id number][place] [address]- 5409 Dec, [facility] [place] [facility] [address] [id number] [place] [address]- 9774 16 Dec, 2014 [facility] [place] [facility] [address] [id number] [place] [address]- 2254 11 Dec, 2014 [facility] [place] [facility] [address] [id number] [place] [address]- 9637 11 Dec, 2014 [facility] [place] [facility] [address] [id number] [place] [address]- 7583 10 Dec, 2014 [facility] [place] [facility] [address] [id number] [place] [address]- 3772 10 Dec, 2014 [facility] [place] [facility] [address] [id number] [place] [address]- 8082 10 Dec, 2014 [facility] [place] [facility] [address] [id number] [place] [address]- 4562 10 Dec, 2014 [facility] [place] [facility] [address] [id number] [place] [address]- 1417 06 Dec, 2014 [facility] [place] [facility] [address] [id number] [place] [address]- 9212 Dec, [facility] [place] [facility] [address] [id number] [place] [address]- 3852 Dec, [facility] [place] [facility] [address] [id number] [place] [address]- 4955 27 Nov, 2014 [facility] [place] [facility] [address] [id number] [place] [address]- 8883 Nov, 2014 [facility] [place] [facility] [address] [id number] [place] [address]- 4127 Nov, 2014 [facility] [place] [facility] [address] [id number] [place] [address]- 3018 Nov, 2014 [facility] [place] [facility] [address] [id number] [place] [address]- 1434 Nov, [facility] [place] [facility] [address] [id number] [place] [address]- 3931 Nov, 2014 [facility] [place] [facility] [address] [id number] [place] [address]- 8356 Nov, 2014 [facility] [place] [facility] [address] [id number] [place] [address]- 3176 Nov, 2014 [facility] [place] [facility] [address] [id number] [place] [address]- 1836 Nov, 2014 [facility] [place] [facility] [address] [id number] [place] [address]- 8571 Nov, 2014 [facility] [place] [facility] [address] [id number] [place] [address]- 3408 Nov, 2014 [facility] [place] [facility] [address] [facility] [id number] [place] [address]- 7988 Nov, 2014 [facility] [place] [facility] [address] [id number] [place] [address]- 5173 Oct, [facility] [place] [facility] [address] [id number] [place] [address]- 8143 Oct, [facility] [place] [facility] [address] [facility] [id number] [place] [address]- 1471 Oct, [facility] [place] [facility] [address] [facility] [id number] [place] [address]- 9677 Oct, [facility] [place] [facility] [address] [id number] [place] [address]- 0380 Oct, [facility] [place] [facility] [address] [id number] [place] [address]- 9190 Oct, [facility] [place] [facility] [address] [id number] [place] [address]- 0261 Sep, [facility] [place] [facility] [address] [id number] [place] [address]- 5236 Sep, [facility] [place] [facility] [address] [id number] [place] [address]- 9278 Sep, [facility] [place] [facility] [address] [id number] [place] [address]- 5769 Sep, [facility] [place] [facility] [address] [id number] [place] [address]- 7045 Sep, [facility] [place] [facility] [address] [id number] [place] [address]- 6634 Sep, [facility] [place] [facility] [address] [id number] [place] [address]- 8898 Sep, [facility] [place] [facility] [address] [id number] [place] [address]- 3261 Sep, [facility] [place] [facility] [address] [id number] [place] [address]- 1116 Aug, [facility] [place] [facility] [address] [id number] [place] [address]- 8571 Aug, [facility] [place] [facility] [address] [id number] [place] [address]- 3071 Aug, [facility] [place] [facility] [address] [id number] [place] [address]- 7443 Aug, [facility] [place] [facility] [address] [id number], [place] [address]- 4454 Jul, [facility] [place] [facility] [address] [id number][place] [address]- 3593 Jul, [facility] [place] [facility] [address] [id number], [place] [address]- 8743 Jul, [facility] [place] [facility] [address] [id number] [place] [address]- 5268 Jun, [facility] [place] [facility] [address] [id number] [place] [address]- 3796 30 Jun, 2014 [facility] [place] [facility] [address] [id number] [place] [address]- 9139 24 Jun, 2014 [facility] [place] [facility] [address] [id number] [place] [address]- 7627 24 Jun, 2013 [facility] [place] [facility] [address] [id number] [place] [address]- 0499 18 Jun, 2013 [facility] [place] [facility] [address] [id number] [place] [address]- 1393 18 Jun, 2013 [facility] [place] [facility] [address] [id number] [place] [address]- 2956 15 Jun, 2013 [facility] [place] [facility] [address] [id number] [place] [address]- 1031 15 Jun, 2013 [facility] [place] [facility] [address] [id number] [place] [address]- 6649 12 Jun, 2014 [facility] [place] [facility] [address] [id number] [place] [address]- 9782 11 Jun, 2014 [facility] [place] [facility] [address] [id number] [place] [address]- 5587 10 Jun, 2014 [facility] [place] [facility] [address] [id number] [place] [address]- 4641 08 Jun, 2014 [facility] [place] [facility] [address] [id number] [place] [address]- 8536 08 Jun, 2014 [facility] [place] [facility] [address] [id number] [place] [address]- 6651 20 May, 2014 [facility] [place] [facility] [address] [id number] [place] [address]- 4629 May, [facility] [place] [facility] [address] [id number] [place] [address]- 8562 May, [facility] [place] [facility] [address] [id number] [place] [address]- 1407 May, [facility] [place] [facility] [address] [id number] [place] [address]- 7936 May, [facility] [place] [facility] [address] [id number] [place] [address]- 3391 Apr, [facility] [place] [facility] [address] [id number] [facility] [place] [address]- 5251 Apr, [facility] [place] [facility] [address] [id number] [place] [address]- 6816 Apr, [facility] [place] [facility] [address] [id number] [place] [address]- 5599 Apr, [facility] [place] [facility] [address] [id number] [place] [address]- 5111 Apr, [facility] [place] [facility] [address] [id number] [place] [address]- 8827 Apr, [facility] [place] [facility] [address] [id number] [place] [address]- 9678 Apr, [facility] [place] [facility] [address] [id number] [place] [address]- 1444 Apr, [facility] [place] [facility] [address] [id number] [place] [address]- 4734 Apr, [facility] [place] [facility] [address] [id number] [place] [address] Apr, [facility] [place] [facility] [address] [id number] [place] [address] Apr, [facility] [place] [facility] [address] [id number] [place] [address] Apr, [facility] [place] [facility] [address] [id number] [place] [address] Apr, [facility] [place] [facility] [address] [id number] [facility] [place] [address] Apr, [facility] [place] [facility] [address] [id number] [place] [address] Apr, [facility] [place] [facility] [address] [id number] [place] [address] Apr, [facility] [place] [facility] [address] [id number] [place] [address] Apr, [facility] [place] [facility] [address] [id number] [place] [address] Apr, [facility] [place] [facility] [address] [id number] [place] [address] Apr, [facility] [place] [facility] [address] [id number] [place] [address] Mar, [facility] [place] [facility] [address] [id number] [place] [address] Mar, [facility] [place] [facility] [address] [id number] [place] [address] Mar, [facility] [place] [facility] [address] [id number] [place] [address] Mar, [facility] [place] [facility] [address] [id number] [place] [address] Mar, [facility] [place] [facility] [address] [id number] [place] [address]367 Mar, [facility] [place] [facility] [address] [id number] [place] [address] Mar, [facility] [place] [facility] [address] [id number] [place] [address] Mar, [facility] [place] [facility] [address] [id number] [place] [address] Mar, [facility] [place] [facility] [address] [id number], [place] [address] Mar, [facility] [place] [facility] [address] [id number] [place] [address] Mar, [facility] [place] [facility] [address] [id number] [place] [address]- [address] Mar, [facility] [place] [facility] [address] [id number] [place] [address] Mar, [facility] [place] [facility] [address] [id number] [place] [address] Mar, [facility] [address] [id number] [place] [address] Mar, [facility] [address] [id number] [place] [address] February, [facility] [address] [id number] [place] [address] February, [facility] [address] [id number] [place] [address] February, [facility] [address] [id number] [place] [address] February, [facility] [address] [id number] [place] [address] February, [facility] [address] [id number] [place] [address] February, [facility] [address] [id number] [place] [address] February, [facility] [address] [id number] [place] [address] February, [facility] [address] [id number] [place] [address] February, [facility] [address] [id number] [place] [address] February, [facility] [address] [id number] [place] [address] Jan, [facility] [place] [facility] [address] [id number] [place] [address] Jan, [facility] [place] [facility] [address] [id number] [place] [address] Jan, [facility] [address] [id number] [place] [address] Jan, [facility] [place] [facility] [address] [id number] [place] [address] 39[address] Jan, [facility] [place] [facility] [address] [id number] [place] [address]- [address] Jan, [facility] [place] [facility] [address] [id number] [place] [address] Dec, [facility] [place] [facility] [address] [id number] [place] [address] Dec, [facility] [place] [facility] [address] [id number] [place] [address] Oct, [facility] [place] [facility] [address] [id number] [place] [address]- 2018 Oct, [facility] [address] [id number] [place] [address] Sep, [facility] [place] [facility] [address] [id number] [place] [address] Sep, [facility] [place] [facility] [address] [id number] [place] [address]- [address] Sep, [facility] [place] [facility] [address] [id number] [place] [address] Sep, [facility] [place] [facility] [address] [id number] [place] [address] Sep, [facility] [place] [facility] [address] [id number], [place] [address] Aug, [facility] [place] [facility] [address] [id number] [place] [address] Aug, [facility] [place] [facility] [address] [id number] [place] [address] Aug, [facility] [place] [facility] [address] [id number] [place] [address] Aug, [facility] [place] [facility] [address] [id number], [place] [address] Aug, [facility] [place] [facility] [address] [id number] [place] [address] Aug, [facility] [place] [facility] [address] [id number] [place] [address] Aug, [facility] [place] [facility] [address] [id number] [place] [address] Aug, [facility] [place] [facility] [address] [id number] [place] [address] Aug, [facility] [place] [facility] [address] [id number] [place] [address] Aug, [facility] [place] [facility] [address] [id number] [place] [address] Aug, [facility] [place] [facility] [address] [id number] [place] [address] Jul, [facility] [place] [facility] [address] [id number] [place] [address] Jul, [facility] [place] [facility] [address] [id number] [place] [address] Jul, [facility] [place] [facility] [address] [id number] [place] [address] Jul, [facility] [place] [facility] [address] [id number], [place] [address] February, [facility] [place] [facility] [address] [id number][place] [address] Jan, [facility] [place] [facility] [address] [id number] [place] [address] 18 Jan, 2013 [facility] [place] [facility] [address] [id number] [place] [address] 10 Jan, 2013 [facility] [place] [facility] [address] [id number] [place] [address] Dec, [facility] [place] [facility] [address] [id number] [place] [address] 30 Dec, 2012 [facility] [address] [id number] [place] [address] 28 Dec, 2012 [facility] [place] [facility] [address] [id number] [place] [address] 25 Dec, 2012 [facility] [address] [id number] [place] [address] 05 Dec, 2012 [facility] [place] [facility] [address] [id number] [place] [address]- [address] 31 Oct, 2012 [facility] [address] [id number] [place] [address] 8685 30 Oct, 2012 [facility] [address] [id number] [place] [address] Oct, [facility] [address] [id number] [place] [address] 17 Oct, 2012 [facility] [address] [id number] [place] [address] 15 Sep, 2012 [facility] [address] [id number] [place] [address]- [address] Sep, [facility] [address] [id number] [place] [address] Sep, [facility] [place] [facility] [address] [id number] [place] [address] Aug, [facility] [place] [facility] [address] [id number] [place] [address] Aug, [facility] [place] [facility] [address] [id number] [place] [address]- [address] Aug, [facility] [place] [facility] [address] [id number] [place] [address]36 Aug, [facility] [place] [facility] [address] [id number] [place] [address] Aug, [facility] [id number], [place] [address] Jul, [facility] [id number], [place] [address] Jul, [facility] [id number] [address] Jul, [facility] [id number] [place] [address] Jul, [facility] [id number] [place] [address] Jul, [facility] [id number] [place] [address] 279[address] Jul, [facility] [address] [id number], [place] [address] Dec, [facility] [id number] [place] [address]- [address] Dec, [facility] [id number], [place] [address] 16 Jun, 2009 [facility] [id number], [place] [address] Mar, [facility] [id number], [place] [address] 10 Jun, 2008 IMMUNIZATIONS No Known Immunizations SOCIAL HISTORY Never Assessed REASON FOR VISIT Lab (walk-in) PLAN OF CARE VITAL SIGNS MEDICATIONS Unknown Medications RESULTS No Results PROCEDURES Procedure Date Ordered Result Body Site LEUKOCYTE COUNT, FECAL February 04, 2018 OVA AND PARASITES SMEARS February 04, 2018 FECES CULTURE, BACTERIA February 04, 2018 SMEAR, COMPLEX STAIN February 04, 2018 INSTRUCTIONS MEDICATIONS ADMINISTERED No Known Medications MEDICAL (GENERAL) HISTORY Type Description Date Medical History High risk sexual behavior Medical History attention deficit hyperactivity disorder Surgical History tonsillectomy Surgical History tubes in ears Surgical History Dental Sugery Hospitalization History childbirth only
--- OUTSIDE RECORDS SUMMARY | 2018-09-26 14:41 | XMS REPORT ---
Author Author PHILIP NICOLE Organization [facility] Address [address] [address] Care Team Providers Care Teacher Specialist Name Role Phone PHILIP NICOLE Unavailable PROBLEMS Type Condition ICD9-CM Code [id number] Code Onset Dates Condition Status SNOMED Code Problem Physical exam, pre-employment Z02.1 Active 608798424 Problem Non-seasonal allergic rhinitis due to pollen J30.1 Active 52266941 Problem ADHD (attention deficit hyperactivity disorder), combined type F90.2 Active 51892445 ALLERGIES Substance Reaction Event Type Date Status SulfADIAZINE anaphylaxis Drug Allergy Jan, Active Penicillamine Unknown Drug Allergy Jan, Active ENCOUNTERS Encounter Location Date Diagnosis [place] [id number] [place] [address] 46685- 8678 Mar, [place] [address] [place] [id number] [place] [address] 60841- 3055 Mar, Well woman exam with routine gynecological exam Z01.419 ; Screen for STD (sexually transmitted disease) Z11.3 ; Vaginal candidiasis B37.3 and High risk sexual behavior Z72.51 [place] [address] [place] [id number] [place] [address] 19879- 8803 Jan, Visit for TB skin test Z11.1 [facility] [id number] [place] [address] Jan, H. pylori infection A04.8 [place] [id number] [place] [address] 97605- 5788 Jan, Physical exam, pre-employment Z02.1 and Visit for TB skin test Z11.1 [place] [id number] [place] [address] 36156- 0399 Jan, Weight loss R63.4 [place] [address] [address]- 6453 Jan, Weight loss R63.4 [place] [address] [address]70- 5236 Jan, Weight loss R63.4 ; Diarrhea, unspecified type R19.7 and Nausea R11.0 [place] [address] [address]- 7483 Oct, Viral gastroenteritis A08.4 ; Fever, unspecified fever cause R50.9 ; Non-seasonal allergic rhinitis due to pollen J30.1 and Influenza A J10.1 [place] [address] [address]95- 9502 Dec, Ingrowing toenail with infection L60.0 [place] [address] 97193- 9081 Nov, Ingrowing toenail with infection L60.0 [place] [address] [id number] [place] [address] 02911- 1838 Nov, [place] [address] [address]- 0620 Nov, [place] [address] [place] [address] [id number] [place] [address] 03353- 1027 Nov, ADHD (attention deficit hyperactivity disorder), combined type F90.2 [facility] [id number] [place] [address]30 -6357 Nov, Sore throat J02.9 and Acute nasopharyngitis (common cold) J00 [place] [address] [place] [id number] [place] [address] 12244- 2594 Oct, [facility] [id number] [place] [address] 39484- 3874 Aug, [place] [address] [place] [address] [id number] [place] [address] 03435- 4378 17 Aug, 2016 Routine gynecological examination Z01.419 ; Nexplanon in place Z97.5 and Dysuria R30.0 [facility] [id number] [place] [address] 64862- 9792 09 Aug, 2016 [facility] [id number] [place] [address] 94692- 3047 Aug, [facility] [id number] [place] [address] 97292 -1622 Jul, Acute cystitis without hematuria N30.00 [facility] [address] [address]78 18 Jun, 2016 Dysuria R30.0 and Acute cystitis with hematuria N30.01 [facility] [address] [place] [address] [id number] [place] [address] 06018- 7235 Jun, [facility] [id number] [place] [address]1973 -7176 Jun, Vaginal yeast infection B37.3 [place] [address] [place] [id number] [place] [address] 15000- 1997 May, [facility] [id number] [place] [address] 41159 -6886 Apr, Infection B99.9 [facility] [address] [place] [address] [id number] [place] [address] 10937- 2239 Apr, [facility] [id number] [place] [address] 36361- 3670 Apr, [facility] [address] 99349- 2399 Apr, [facility] [address] [place] [address] [id number] [place] [address] 95231- 6323 Apr, [facility] [address] [place] [address] [id number] [place] [address] 56483- 9753 Mar, Ingrown toenail L60.0 [facility] [address] [address] 4276 Mar, [facility] [address] [address] 4805 Mar, [facility] [address] [id number] [place] [address] Mar [facility] [address] [address] 1794 February, Ingrown right big toenail L60.0 [facility] [address] [address]- 6627 February, [facility] [address] [address] 9812 February, [facility] [address] [address]- 6550 February, Ingrowing right great toenail L60.0 and Overweight (BMI 25.0 -29.9) E66.3 [facility] [address], [place] [address]- 1426 February, [facility] [address], [place] [address] 9759 February, [facility] [address] [id number] [place] [address] February [facility] [address] [id number] [place] [address] February [facility] [address], [place] [address]- 6922 Jan, [facility] [address], [place] [address]- 1239 Jan, [facility] [address], [place] [address]- 4073 Jan, [facility] [address], [place] [address]- 7753 Jan, [facility] [id number] [place] [address] 73984- 0732 Dec, [facility] [id number] [place] [address] 04882- 4341 Dec, [facility] [id number] [place] [address] 77109 -6072 Dec, Vaginal candidiasis B37.3 [facility] [id number] [address] Dec, [facility] [id number] [place] [address] 62357- 1264 Dec, [facility] [id number] [place] [address] 99537- 8826 Dec, Encounter for test, result unknown Z32.00 [facility] [id number] [place] [address] 49938- 6228 Oct, Nail, ingrown L60.0 and Infected nailbed of toe L03.039 [facility] [id number] [place] [address] 97471- 7723 Oct, [facility] [id number] [place] [address] 47285- 1420 Oct, [facility] [id number] [place] [address] 68176- 2648 Oct, [facility] [address], [place] [address]- 8400 16 Sep, 2015 [facility] [address] [id number] [place] [address] Sep [facility] [address] [id number] [place] [address] Sep [facility] [address], [place] [address]- 9583 08 Sep, 2015 Frequent urination R35.0 ; Irregular menses N92.6 ; Abdominal cramping R10.9 ; Surveillance of implantable subdermal contraceptive Z30.49 ; Unprotected sexual intercourse Z72.51 and Vaginal itching L29.8 [facility] [address] [id number] [place] [address] Aug [facility] [address], [place] [address]- 5010 Aug, [facility] [id number] [place] [address] 95872- 4671 Aug, [facility] [id number] [place] [address] 39385- 1998 Jul, [facility] [id number] [place] [address] 91839- 4806 Jul, [facility] [id number] [place] [address] 54201- 1387 Jul, Routine follow-up Z39.2 ; Vaginal itching L29.8 ; Leaking of urine R32 ; General counseling and advice for contraceptive management Z30.09 ; Change in vision H53.9 and Evaluation for contraceptive implant Z30.018 [facility] [address] [address]- 3972 Jul, [facility] [address], [place] [address]- 1018 Jun, [facility] [id number] [place] [address] 20613- 4699 Jun, [facility] [address], [place] [address]- 7670 Jun, [facility] [id number] [place] [address] 39650- 1934 Jun, [facility] [address] [address]- 2845 Jun, Cough 786.2 [facility] [id number] [address]- 3622 15 Jun, 2014 [facility] [address] [facility] [id number] [address]- 1887 15 Jun, 2014 [facility] [address] [facility] [id number] [address]- 6351 14 Jun, 2014 [facility] [address] [facility] [id number], [place] [address]- 3661 14 Jun, 2014 [facility] [address] [facility] [id number] [address]- 4748 11 Jun, 2014 [facility] [address] [facility] [id number] [place] [address] 68893- 8882 Jun, 2014 [facility] [address] [place] [id number] [address]- 0801 Jun, 2014 Supervision of normal first V22.0 [facility] [address], [place] [address]- 9073 Jun, 2014 [facility] [address] [facility] [id number], [place] [address]- 2088 Jun, 2014 [facility] [address], [place] [address]- 3236 Jun, Supervision of normal first V22.0 [facility] [address] [address]- 9090 May, [facility] [id number] [address]- 1139 May, Supervision of normal first V22.0 [facility] [id number] [address]- 7066 May, Supervision of normal first V22.0 [facility] [id number] [address]- 9576 Apr, Supervision of normal first V22.0 [facility] [address] [address]- 7356 Apr, [facility] [address] [facility] [id number] [place] [address]- 2216 Apr, [facility] [address] [facility] [id number], [place] [address]- 4335 Apr, Supervision of normal first V22.0 [facility] [address] [facility] [id number], [place] [address]- 6909 Apr, [facility] [address] [facility] [id number], [place] [address]- 7698 Apr, Supervision of normal first V22.0 [facility] [address] [facility] [id number] [place] [address], [place] [address]- 1273 Mar, [facility] [address] [facility] [id number], [place] [address]- 0005 Mar, Supervision of normal first V22.0 [facility] [address] [facility] [id number], [place] [address]- 5591 February, [facility] [address] [facility] [id number] [place] [address]- 2410 February, Supervision of normal first V22.0 [facility] [address] [facility] [id number], [place] [address]- 9186 Jan, [facility] [address] [facility] [id number], [place] [address]- 0193 Jan, [facility] [address] [facility] [id number], [place] [address]- 3858 Dec, [facility] [address] [facility] [id number], [place] [address]- 5100 Dec, [facility] [address] [facility] [id number], [place] [address]- 4713 Dec, [facility] [address] [facility] [id number], [place] [address]- 0506 Dec, [facility] [place] [facility] [address] [id number] [place] [address]- 9031 16 Dec, 2014 [facility] [place] [facility] [address] [id number] [place] [address]- 5211 16 Dec, 2014 [facility] [place] [facility] [address] [id number] [place] [address]- 4670 11 Dec, 2014 [facility] [place] [facility] [address] [id number] [place] [address]- 2102 11 Dec, 2014 [facility] [place] [facility] [address] [id number] [place] [address]- 9426 10 Dec, 2014 [facility] [place] [facility] [address] [id number] [place] [address]- 5601 10 Dec, 2014 [facility] [place] [facility] [address] [id number] [place] [address]- 5451 10 Dec, 2014 [facility] [place] [facility] [address] [id number] [place] [address]- 7387 10 Dec, 2014 [facility] [place] [facility] [address] [id number] [place] [address]- 3290 06 Dec, 2014 [facility] [place] [facility] [address] [id number] [place] [address]- 5590 Dec, [facility] [place] [facility] [address] [id number] [place] [address]- 9328 Dec, [facility] [place] [facility] [address] [id number] [place] [address]- 9649 27 Nov, 2014 [facility] [place] [facility] [address] [id number] [place] [address]- 7441 26 Nov, 2014 [facility] [place] [facility] [address] [id number] [place] [address]- 4603 25 Nov, 2014 [facility] [place] [facility] [address] [id number] [place] [address]- 2209 24 Nov, 2014 [facility] [place] [facility] [address] [id number] [place] [address]- 8512 Nov, [facility] [place] [facility] [address] [id number] [place] [address]- 6116 Nov, [facility] [place] [facility] [address] [id number] [place] 2266 Nov, 2014 [facility] [place] [facility] [address] [id number] [place] [address]- 3844 Nov, 2014 [facility] [place] [facility] [address] [id number] [place] [address]- 4207 Nov, 2014 [facility] [place] [facility] [address] [id number] [place] [address]- 6229 Nov, 2014 [facility] [place] [facility] [address] [id number] [place] [address]- 3851 Nov, 2014 [facility] [place] [facility] [address] [facility] [id number] [place] [address]- 8692 Nov, [facility] [place] [facility] [address] [id number] [place] [address]- 5584 Oct, [facility] [place] [facility] [address] [id number] [place] [address]- 8251 Oct, [facility] [place] [facility] [address] [facility] [id number] [place] [address]- 9873 Oct, [facility] [place] [facility] [address] [id number] [place] [address]- 1732 Oct, [facility] [place] [facility] [address] [id number], [place] [address]- 5092 Oct, [facility] [place] [facility] [address] [id number], [place] [address]- 9631 Oct, [facility] [place] [facility] [address] [facility] [id number] [place] [address]- 1618 Sep, [facility] [place] [facility] [address] [id number], [place] [address]- 5478 Sep, [facility] [place] [facility] [address] [id number] [place] [address]- 2807 18 Sep, 2014 [facility] [place] [facility] [address] [id number] [place] 8811 Sep, [facility] [place] [facility] [address] [id number] [place] [address]- 5850 Sep, [facility] [place] [facility] [address] [id number] [place] [address]- 6455 Sep, [facility] [place] [facility] [address] [id number] [place] [address]- 9246 Sep, [facility] [place] [facility] [address] [id number] [place] [address]- 3695 Sep, [facility] [place] [facility] [address] [id number] [place] [address]- 0950 Aug, [facility] [place] [facility] [address] [id number] [place] [address]- 7252 Aug, [facility] [place] [facility] [address] [id number] [place] [address]- 2013 Aug, [facility] [place] [facility] [address] [id number] [place] [address]- 2211 Aug, [facility] [place] [facility] [address] [id number] [place] [address]- 6028 Jul, [facility] [place] [facility] [address] [id number] [place] [address]- 0927 Jul, [facility] [place] [facility] [address] [id number] [place] [address]- 2059 Jul, [facility] [place] [facility] [address] [id number] [place] [address]- 2886 Jun, [facility] [place] [facility] [address] [id number] [place] [address]- 5051 Jun, [facility] [place] [facility] [address] [id number] [place] [address]- 6135 24 Jun, 2013 [facility] [place] [facility] [address] [id number] [place] [address]- 9289 24 Jun, 2013 [facility] [place] [facility] [address] [id number] [place] [address]- 6107 18 Jun, 2013 [facility] [place] [facility] [address] [id number] [place] [address]- 4195 18 Jun, 2013 [facility] [place] [facility] [address] [id number] [place] [address]- 9717 15 Jun, 2013 [facility] [place] [facility] [address] [id number] [place] [address]- 6328 15 Jun, 2013 [facility] [place] [facility] [address] [id number] [place] [address]- 6015 12 Jun, 2013 [facility] [place] [facility] [address] [id number] [place] [address]- 2617 11 Jun, 2014 [facility] [place] [facility] [address] [id number] [place] [address]- 2443 10 Jun, 2013 [facility] [place] [facility] [address] [id number] [place] [address]- 6948 08 Jun, 2014 [facility] [place] [facility] [address] [id number] [place] [address]- 8879 08 Jun, 2013 [facility] [place] [facility] [address] [id number] [place] [address]- 7605 20 May, 2014 [facility] [place] [facility] [address] [id number] [place] [address]- 2682 May, [facility] [place] [facility] [address] [id number] [place] [address]- 8141 May, [facility] [place] [facility] [address] [id number] [place] [address]- 9554 May, [facility] [place] [facility] [address] [id number] [place] [address]- 9804 May, [facility] [place] [facility] [address] [id number] [place] [address]- 5088 Apr, [facility] [place] [facility] [address] [id number] [place] [address]- 7003 Apr, [facility] [place] [facility] [address] [id number] [place] [address]- 8026 Apr, [facility] [place] [facility] [address] [id number] [place] [address]- 4921 Apr, [facility] [place] [facility] [address] [id number] [place] [address]- 1172 Apr, [facility] [place] [facility] [address] [id number] [place] [address]- 9494 Apr, [facility] [place] [facility] [address] [id number] [place] [address]- 2080 Apr, [facility] [place] [facility] [address] [id number] [place] [address]- 6458 Apr, [facility] [place] [facility] [address] [id number] [place] [address]- 4654 Apr, [facility] [place] [facility] [address] [id number] [place] [address]- 4712 Apr, [facility] [place] [facility] [address] [id number] [place] [address]- 9423 Apr, [facility] [place] [facility] [address] [id number] [place] [address]- 254 Apr, [facility] [place] [facility] [address] [id number] [place] [address]- 2543 Apr, [facility] [place] [facility] [address] [id number] [place] [address]- 8072 Apr, [facility] [place] [facility] [address] [id number] [place] [address] Apr, [facility] [place] [facility] [address] [id number] [place] [address] Apr, [facility] [place] [facility] [address] [id number] [place] [address] Apr, [facility] [place] [facility] [address] [id number] [place] [address] Apr, [facility] [place] [facility] [address] [id number] [place] [address] Apr, [facility] [place] [facility] [address] [id number] [place] [address] Mar, [facility] [place] [facility] [address] [id number] [place] [address] Mar, [facility] [place] [facility] [address] [id number] [place] [address] Mar, [facility] [place] [facility] [address] [id number] [place] [address] Mar, [facility] [place] [facility] [address] [id number] [place] [address] Mar, [facility] [place] [facility] [address] [id number] [place] [address] Mar, [facility] [place] [facility] [address] [id number] [place] [address] Mar, [facility] [place] [facility] [address] [id number] [place] [address] Mar, [facility] [place] [facility] [address] [id number] [address] Mar, [facility] [place] [facility] [address] [id number] [place] [address] Mar, [facility] [place] [facility] [address] [id number] [place] [address] Mar, [facility] [place] [facility] [address] [id number] [place] [address] Mar, [facility] [place] [facility] [address] [id number] [place] [address] Mar, [facility] [address] [id number] [place] [address] Mar, [facility] [place] [facility] [address] [id number] [place] [address] Mar, [facility] [place] [facility] [address] [id number] [place] [address] February, [facility] [place] [facility] [address] [id number] [place] [address] February, [facility] [place] [facility] [address] [id number] [place] [address] February, [facility] [place] [facility] [address] [id number] [place] [address] February, [facility] [place] [facility] [address] [id number] [place] [address] February, [facility] [place] [facility] [address] [id number] [place] [address] February, [facility] [place] [facility] [address] [id number] [place] [address] February, [facility] [place] [facility] [address] [id number] [place] [address] February, [facility] [place] [facility] [address] [id number] [place] [address] February, [facility] [place] [facility] [address] [id number] [place] [address] February, [facility] [place] [facility] [address] [id number] [place] [address] Jan, [facility] [place] [facility] [address] [id number] [place] [address] Jan, [facility] [place] [facility] [address] [id number] [place] [address] Jan, [facility] [place] [facility] [address] [id number] [place] [address] Jan, [facility] [place] [facility] [address] [id number] [place] [address] Jan, [facility] [place] [facility] [address] [id number] [place] [address] Jan, [facility] [place] [facility] [address] [id number] [place] [address] Dec, [facility] [place] [facility] [address] [id number] [place] [address] Dec, [facility] [place] [facility] [address] [id number] [place] [address] Oct, [facility] [place] [facility] [address] [id number] [place] [address] Oct, [facility] [place] [facility] [address] [id number] [place] [address] Sep, [facility] [place] [facility] [address] [id number] [place] [address] Sep, [facility] [place] [facility] [address] [id number] [place] [address] Sep, [facility] [place] [facility] [address] [id number] [place] [address] Sep, [facility] [place] [facility] [address] [id number] [place] [address] Sep, [facility] [place] [facility] [address] [id number] [place] [address] Aug, [facility] [place] [facility] [address] [id number] [place] [address] Aug, [facility] [place] [facility] [address] [id number] [place] [address] Aug, [facility] [place] [facility] [address] [id number] [place] [address] Aug, [facility] [place] [facility] [address] [id number] [place] [address] Aug, [facility] [place] [facility] [address] [id number] [place] [address] Aug, [facility] [place] [facility] [address] [id number] [place] [address] Aug, [facility] [place] [facility] [address] [id number] [place] [address] Aug, [facility] [place] [facility] [address] [id number] [place] [address] Aug, [facility] [place] [facility] [address] [id number] [place] [address] Aug, [facility] [place] [facility] [address] [id number] [place] [address] Aug, [facility] [place] [facility] [address] [id number], [place] [address] Jul, [facility] [place] [facility] [address] [id number] [place] [address] Jul, [facility] [place] [facility] [address] [id number], [place] [address] Jul, [facility] [place] [facility] [address] [id number], [place] [address] Jul, [facility] [place] [facility] [address] [id number], [place] [address] February, [facility] [place] [facility] [address] [id number] [place] [address] Jan, [facility] [place] [facility] [address] [id number], [place] [address] 18 Jan, 2013 [facility] [place] [facility] [address] [id number], [place] [address] Jan, [facility] [place] [facility] [address] [id number] [place] [address] 31 Dec, 2012 [facility] [address] [id number] [place] [address] 30 Dec, 2012 [facility] [place] [facility] [address] [id number] [place] [address] 28 Dec, 2012 [facility] [address] [id number] [place] [address] 25 Dec, 2012 [facility] [place] [facility] [address] [id number] [place] [address] 05 Dec, 2012 [facility] [address] [id number] [place] [address] 31 Oct, 2012 [facility] [address] [id number] [place] [address] 30 Oct, 2012 [facility] [address] [id number] [place] [address] Oct, [facility] [address] [id number] [place] [address] 17 Oct, 2012 [facility] [address] [id number] [place] [address] Sep, [facility] [address] [id number] [place] [address] Sep, [facility] [address] [id number] [place] [address] Sep, [facility] [place] [facility] [address] [id number] [place] [address] Aug, [facility] [place] [facility] [address] [id number] [place] [address] Aug, [facility] [place] [facility] [address] [id number] [place] [address] Aug, [facility] [address] [id number] [place] [address] Aug, [facility] [id number] [address] Aug, [facility] [id number], [place] [address] Jul, [facility] [id number], [place] [address] Jul, [facility] [id number] [place] [address] Jul, [facility] [id number], [place] [address] Jul, [facility] [id number] [place] [address] Jul, [facility] [address] [id number] Jul, [facility] [address] [id number], [place] [address] Dec, [facility] [address], [place] [address] Dec, [facility] [address] [address] [address] Jun, [facility] [address], [place] [address] Mar, [facility] [address] [address] Jun, IMMUNIZATIONS No Known Immunizations SOCIAL HISTORY Never Assessed REASON FOR VISIT Losing weight rapidly-reports that in the last year she has lost around 20lbs, low appetite, has child jun 27 2015, pt breastfed x1 year-AHarrymkaranRN PLAN OF CARE Activity Details Follow Up prn Reason: VITAL SIGNS Height 68 in 2018-02-03 Weight 132.9 lbs 2018-02-03 Temperature 97.9 degrees Fahrenheit 2018-02-03 Heart Rate 78 bpm 2018-02-03 Respiratory Rate 20 2018-02-03 BMI 20.21 kg/m2 2018-02-03 Blood pressure systolic 112 mmHg 2018-02-03 Blood pressure diastolic 68 mmHg 2018-02-03 MEDICATIONS Medication Instructions Dosage Frequency Start Date End Date Duration Status Ondansetron 4 MG Orally every 8 hrs 1 tablet on the tongue and allow to dissolve 8h Oct, 07 days Not-Taking Nexplanon 68 MG Active RESULTS No Results PROCEDURES Procedure Date Ordered Result Body Site COMPLETE CBC W/AUTO DIFF WBC February 03, 2018 ASSAY THYROID STIM HORMONE February 03, 2018 VENIPUNCT, ROUTINE* February 03, 2018 CHORIONIC GONADOTROPIN ASSAY February 03, 2018 COMPREHEN METABOLIC PANEL February 03, 2018 ASSAY OF FREE THYROXINE February 03, 2018 C-REACTIVE PROTEIN February 03, 2018 INSTRUCTIONS MEDICATIONS ADMINISTERED No Known Medications MEDICAL (GENERAL) HISTORY Type Description Date Medical History High risk sexual behavior Medical History attention deficit hyperactivity disorder Surgical History tonsillectomy Surgical History tubes in ears Surgical History Dental Sug[facility] Hospitalization History childbirth only
--- OUTSIDE RECORDS SUMMARY | 2018-09-26 14:41 | XMS REPORT ---
Author Author YAMINI DILL Organization [employer] Address Unknown Phone Unavailable Care Team Providers Care Channel Development Director Name Role Phone YAMINI DILL CP Unavailable Allergies, Adverse Reactions, Alerts Substance Reaction Event Type SulfADIAZINE anaphylaxis Drug Allergy Problems Problem Type Condition Code Onset Dates Condition Status Assessment Infection B99.9 Active Problem Irregular menstrual cycle N92.6 Active Problem Evaluation for contraceptive implant Z30.018 Active Problem High risk sexual behavior Z72.51 Active Problem Early skin lesions due to yaws A66.2 Active Problem Dyspareunia N94.1 Active Problem Attn-defct hyperactivity disorder, 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 Active Problem Elevated BP I10 Active Problem Intestinal infection A09 Active Problem Screening-pulmonary TB Z11.1 Active Medications Medication Code System Code Instructions Start Date End Date Status Dosage Clindamycin HCl [facility] [address]-07 300 MG Orally every 8 hrs May 17, 2016 May 24, 2016 1 capsule Diflucan [facility] [address]-38 150 MG Orally Once a day May 17, 2016 2 tablet Procedures Procedure Coding System Code Date Office Visit, Est Pt., Level 3 CPT-4 97298 May 17, 2016 Vital Signs Date/Time: May 17, 2016 Cardiac Monitoring Heart Rate 60 bpm Weight 163.0 lbs Height 68 in BMI 24.78 Index Blood Pressure Diastolic 66 mmHg Blood Pressure Systolic 102 mmHg Results No Known Results Summary Purpose [employer] Submission
--- OUTSIDE RECORDS SUMMARY | 2018-09-26 14:41 | XMS REPORT ---
Author Author BOSSMAN IVY [employer] Address Unknown Phone Unavailable Care Team Providers Care Auto Mechanics Teacher Name Role Phone BOSSMAN IVY Unavailable Allergies, Adverse Reactions, Alerts Substance Reaction Event Type Sulfur throat swelling Drug Allergy Problems Problem Type Condition Code Onset Dates Condition Status Assessment Frequent urination R35.0 Active Problem Irregular menstrual cycle N92.6 Active Problem Evaluation for contraceptive implant Z30.018 Active Problem High risk sexual behavior Z72.51 Active Problem Early skin lesions due to yaws A66.2 Active Problem Dyspareunia N94.1 Active Problem Attn-defct hyperactivity disorder, 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 Active Problem Elevated BP I10 Active Problem Intestinal infection A09 Active Problem Screening-pulmonary TB Z11.1 Active Assessment Unprotected sexual intercourse Z72.51 Active Assessment Surveillance of implantable subdermal contraceptive Z30.49 Active Assessment Abdominal cramping R10.9 Active Assessment Vaginal itching L29.8 Active Assessment Irregular menses N92.6 Active Medications No Known Medications Procedures Procedure Coding System Code Date URINE CULTURE/COLONY COUNT CPT-4 07274 Sep 25, 2015 COMPLETE CBC W/AUTO DIFF WBC CPT-4 21117 Sep 25, 2015 URINALYSIS, AUTO, W/O SCOPE CPT-4 69248 Sep 25, 2015 Office Visit, Est Pt., Level 4 CPT-4 55563 Sep 25, 2015 VENIPUNCT, ROUTINE* CPT-4 71300 Sep 25, 2015 No Charge CPT-4 21837 Sep 25, 2015 URINE TEST CPT-4 86680 Sep 25, 2015 CULTURE, BACTERIA, OTHER CPT-4 14743 Sep 25, 2015 TRICHOMONAS VAGIN, DIR PROBE CPT-4 51629 Sep 25, 2015 Vital Signs Date/Time: Sep 25, 2015 Temperature 97.0 F Weight 164.1 lbs Height 68 in BMI 24.95 Index Blood Pressure Diastolic 76 mmHg Blood Pressure Systolic 116 mmHg Results Name Result Date Reference Range Unit Abnormality Flag TEST, URINE (IN HOUSE) ----Control + [id number] ----Exp date 20150925 ----RESULTS negative [id number] ----Lot # [id number] TRICHOMONAS (IN HOUSE) ----Exp date 20150925 ----TRICHOMONAS negative [id number] ----Lot # [id number] ----Control + [id number] ROUTINE VENIPUNCTURE CBC ----MCHC 32.3 60570944 31.5-35.7 g/dL ----MCH 28.1 76978149 26.6-33.0 pg ----Platelets 237 [id number] 150-379 x10E3/uL ----RDW 13.5 92519085 12.3-15.4 % ----Immature Granulocytes 0 72874983 % ----Immature Grans (Abs) 0.0 69915471 0.0-0.1 x10E3/uL ----Lymphs 40 67838172 % ----Monocytes 7 13618117 % ----Neutrophils 52 88941511 % ----Neutrophils (Absolute) 3.2 74897445 1.4-7.0 x10E3/uL ----Hematocrit 38.1 36312994 34.0-46.6 % ----Lymphs (Absolute) 2.5 86768784 0.7-3.1 x10E3/uL ----MCV 87 12973135 79-97 fL ----RBC 4.38 17351153 3.77-5.28 x10E6/uL ----Eos 1 49757388 % ----Basos 0 07279439 % ----Hemoglobin 12.3 18227628 11.1-15.9 g/dL ----Baso (Absolute) 0.0 42847247 0.0-0.2 x10E3/uL ----WBC 6.1 05479704 3.4-10.8 x10E3/uL ----Monocytes(Absolute) 0.4 83086671 0.1-0.9 x10E3/uL ----Eos (Absolute) 0.1 37214654 0.0-0.4 x10E3/uL UA LONG DIP (IN HOUSE) ----KET neg 20150925 ----TWAN neg 20150925 ----GLU neg 20150925 ----Odor no 20150925 ----Color orange 20150925 ----Clarity slightly cloudy 20150925 ----Exp date 20150925 ----Lot # [id number] ----NIT neg 20150925 ----VIANEY neg 20150925 ----BLO trace-intact 20150925 ----pH 5.5 20150925 ----Protein neg 20150925 ----URO 0.2 20150925 ----SG 1.030 20150925 Summary Purpose [employer]Clinical[employer] Submission
--- OUTSIDE RECORDS SUMMARY | 2018-09-26 14:42 | XMS REPORT ---
Author Author RASHAD BORJA Organization [employer] Address Unknown Phone Unavailable Care Team Providers Care Healthcare Social Worker Name Role Phone RASHAD BORJA CP Unavailable Allergies No Known Allergies Problems Problem Type Condition Code Onset Dates Condition Status Problem Irregular menstrual cycle N92.6 Active Problem Evaluation for contraceptive implant Z30.018 Active Problem High risk sexual behavior Z72.51 Active Problem Early skin lesions due to yaws A66.2 Active Problem Dyspareunia N94.1 Active Problem Attn-defct hyperactivity disorder, 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 Active Problem Elevated BP I10 Active Problem Intestinal infection A09 Active Problem Screening-pulmonary TB Z11.1 Active Medications No Known Medications Results No Known Results Summary Purpose [employer] Submission
--- OUTSIDE RECORDS SUMMARY | 2018-09-26 14:42 | XMS REPORT ---
Author Author RASHAD BORJA [facility] [employer] Address Unknown Phone Unavailable Care Team Providers Care Template Storage Clerk Name Role Phone RASHAD BORJA CP Unavailable Allergies No Known Allergies Problems Problem Type Condition ICD-9 Code Onset Dates Condition Status Problem Irregular menstrual cycle 626.4 Active Problem Other general counseling and advice for contraceptive management V25.09 Active Problem Other specified symptom associated with female genital organs 625.8 Active Problem Elevated blood pressure reading without diagnosis of hypertension 796.2 Active Problem Leukorrhea, not specified as infective 623.5 Active Problem Screening examination for venereal disease V74.5 Active Problem Dietary surveillance and counseling V65.3 Active Problem Attention deficit disorder of childhood with hyperactivity 314.01 Active Problem Counseling on other sexually transmitted diseases V65.45 Active Problem Nausea with vomiting 787.01 Active Problem Routine infant or child health check V20.2 Active Problem examination or test, positive result V72.42 Active Problem Dyspareunia 625.0 Active Problem Candidiasis of vulva and vagina 112.1 Active Problem General counseling for prescription of oral contraceptives V25.01 Active Problem Intestinal infection due to other organism, NEC 008.8 Active Problem Screening examination for pulmonary tuberculosis V74.1 Active Problem Supervision of normal first V22.0 Active Problem state, incidental V22.2 Active Problem Need for prophylactic vaccination and inoculation, Influenza V04.81 Active Problem Ingrowing nail 703.0 Active Problem Surveillance of previously prescribed implantable subdermal contraceptive V25.43 Active Problem Contact dermatitis and other eczema due to plants (except food) 692.6 Active Problem Other early skin lesions due to yaws 102.2 Active Problem Urinary frequency 788.41 Active Problem examination or test, unconfirmed V72.40 Active Problem Acute pharyngitis 462 Active Problem GARDASIL (HPV) DX V04.89 Active Problem Unspecified vaginitis and vulvovaginitis 616.10 Active Problem Dysuria 788.1 Active Problem Problems related to high-risk sexual behavior V69.2 Active Medications No Known Medications Results No Known Results Summary Purpose [employer] Submission
--- OUTSIDE RECORDS SUMMARY | 2018-09-26 14:42 | XMS REPORT ---
Author DARWIN Alexander Organization [facility] Address [address] [place] [address] Care Team Providers Care Dumper Bailer Operator Name Role Phone DARWIN CUADRA Unavailable PROBLEMS Type Condition ICD9-CM Code ODA04-QB Code Onset Dates Condition Status SNOMED Code Problem ADHD (attention deficit hyperactivity disorder), combined type F90.2 Active [id number] ALLERGIES No Information SOCIAL HISTORY Never Assessed PLAN OF CARE Activity Details Follow Up prn Reason: VITAL SIGNS MEDICATIONS No Known Medications RESULTS No Results PROCEDURES Procedure Date Ordered Result Body Site Psychotherapy, patient &/family, 30 minutes, established patient Dec 03, 2016 IMMUNIZATIONS No Known Immunizations MEDICAL (GENERAL) HISTORY Type Description Date Medical History High risk sexual behavior Medical History attention deficit hyperactivity disorder Surgical History tonsillectomy Surgical History tubes in ears Surgical History Dental Sugery Hospitalization History childbirth only
--- OUTSIDE RECORDS SUMMARY | 2018-09-26 14:42 | XMS REPORT ---
Author Author SILAS BIRD Organization [employer] Address Unknown Phone Unavailable Care Team Providers Care Stock Turner Name Role Phone SILAS BIRD CP Unavailable Allergies No Known Allergies Problems No Known Problems Medications Medication Code System Code Instructions Start Date End Date Status Dosage Diflucan [facility][NOTE 3] [address]-23 100 MG Orally Once a day Sep 15, 2016 Sep 20, 2016 1 tablet Results No Known Results Summary Purpose [employer] Submission
--- OUTSIDE RECORDS SUMMARY | 2018-09-26 14:42 | XMS REPORT ---
Author Author RASHAD BORJA [facility] [employer] Address Unknown Phone Unavailable Care Team Providers Care Boiler Welder Name Role Phone RASHAD BORJA CP Unavailable [...]
--- OUTSIDE RECORDS SUMMARY | 2018-09-26 14:42 | XMS REPORT ---
Author Author JORGE THOMAS Organization [employer] Address Unknown Phone Unavailable Care Team Providers Care Sorting And Folding Supervisor Name Role Phone JORGE THOMAS CP Unavailable Allergies No Known Allergies Problems [...]
--- OUTSIDE RECORDS SUMMARY | 2018-09-26 14:42 | XMS REPORT ---
Author Author DILLYAMINI Organization [facility] Address [address] [place] [address] Care Team Providers Care Whizzer Name Role Phone YAMINI DILL Unavailable PROBLEMS Type Condition ICD9-CM Code [id number] Code Onset Dates Condition Status SNOMED Code Problem Physical exam, pre-employment Z02.1 Active 953945354 Problem Non-seasonal allergic rhinitis due to pollen J30.1 Active 25650678 Problem ADHD (attention deficit hyperactivity disorder), combined type F90.2 Active 64247411 ALLERGIES Substance Reaction Event Type Date Status SulfADIAZINE anaphylaxis Drug Allergy Oct, Active Penicillamine Unknown Drug Allergy Oct, Active ENCOUNTERS Encounter Location Date Diagnosis [facility] [address], [place] [address] Mar, [facility] [address], [place] [address] Jan, Visit for TB skin test Z11.1 [facility] [address] [id number] [address] Jan, H. pylori infection A04.8 [facility] [address] [id number], [place] [address] Jan, Physical exam, pre-employment Z02.1 and Visit for TB skin test Z11.1 [facility] [address] [id number], [place] [address] Jan, Weight loss R63.4 [facility] [id number] [place] [address]- 6709 Jan, Weight loss R63.4 [facility] [address], [place] [address] Jan, Weight loss R63.4 ; Diarrhea, unspecified type R19.7 and Nausea R11.0 [place] [address] [address] Oct, Viral gastroenteritis A08.4 ; Fever, unspecified fever cause R50.9 ; Non-seasonal allergic rhinitis due to pollen J30.1 and Influenza A J10.1 [place] [address] [address] Dec, Ingrowing toenail with infection L60.0 [place] [address] [address] Nov, Ingrowing toenail with infection L60.0 [place] [address] [address] Nov, [place] [address] [address] Nov, [place] [address] [address] Nov, ADHD (attention deficit hyperactivity disorder), combined type F90.2 [facility] [address] [address] Nov, Sore throat J02.9 and Acute nasopharyngitis (common cold) J00 [place] [address] [address] Oct, [place] [address] [address] Aug, [place] [address] [address] Aug, Routine gynecological examination Z01.419 ; Nexplanon in place Z97.5 and Dysuria R30.0 [place] [address] [address] Aug, [place] [address], [place] [address] 08 Aug, 2016 [facility] [address] [place] [address] 29 Jul, 2016 Acute cystitis without hematuria N30.00 [facility] [address], [place] [address] 18 Jun, 2016 Dysuria R30.0 and Acute cystitis with hematuria N30.01 [facility] [address], [place] [address] 14 Jun, 2016 [facility] [id number] [place] [address] 06 Jun, 2016 Vaginal yeast infection B37.3 [facility] [address] [place] [address]326- 8762 May, [facility] [address] [place] [address]74 -[address] Apr, Infection B99.9 [facility] [address] [place] [address] 81923- 1500 Apr, [facility] [address] [place] [address] 85624- 1672 Apr, [facility] [address], [place] [address] Apr, [facility] [address], [place] [address] 09[address] Apr, [facility] [address], [place] [address] Mar, Ingrown toenail L60.0 [facility] [address], [place] [address] 67[address] Mar, [facility] [address] [id number], [place] [address] Mar, [facility] [id number] [place] [address] Mar [facility] [address], [place] [address] February, Ingrown right big toenail L60.0 [facility] [address], [place] [address] 48[address] February, [facility] [id number] [place] [address] 31216- 4637 February, [facility] [address], [place] [address] February, Ingrowing right great toenail L60.0 and Overweight (BMI 25.0 -29.9) E66.3 [facility] [address], [place] [address] February, [facility] [address], [place] [address] February, [facility] [place] [address] [id number] [place] [address] February [facility] [place] [address] [id number] [place] [address] February [facility] [id number], [place] [address] Jan, [facility] [address], [place] [address] 7[address] Jan, [facility] [id number], [place] [address] 8[address] Jan, [facility] [address], [place] [address]- 4[address] Jan, [facility] [id number], [place] [address] Dec, [facility] [id number], [place] [address] Dec, [facility] [id number], [place] [address] Dec, Vaginal candidiasis B37.3 [facility] [address] [id number] [id number] Dec, [facility] [address], [place] [address] Dec, [facility] [address] [place] [address]- 7725 Dec, Encounter for test, result unknown Z32.00 [facility] [id number] [place] [address] 75681- 3881 Oct, Nail, ingrown L60.0 and Infected nailbed of toe L03.039 [facility] [address], [place] [address] 85[address] Oct, [facility] [address] [place] [address] 88046- 9613 Oct, [facility] [address], [place] [address] 67[address] Oct, [facility] [address], [place] [address]- 3864 16 Sep, 2015 [facility] [address] [id number] [place] [address] Sep [facility] [address] [id number] [place] [address] Sep [facility] [address] [facility] [id number], [place] [address] 08 Sep, 2015 Frequent urination R35.0 ; Irregular menses N92.6 ; Abdominal cramping R10.9 ; Surveillance of implantable subdermal contraceptive Z30.49 ; Unprotected sexual intercourse Z72.51 and Vaginal itching L29.8 [facility] [address] [id number] [place] [address] Aug [facility] [address], [place] [address]- 250[address] Aug, [facility] [id number] [place] [address] 41412- 7839 Aug, [facility] [id number] [place] [address] 04467- 6697 Jul, [facility] [id number] [place] [address] 78027- 5669 Jul, [facility] [id number] [place] [address] 54439- 2940 Jul, Routine follow-up Z39.2 ; Vaginal itching L29.8 ; Leaking of urine R32 ; General counseling and advice for contraceptive management Z30.09 ; Change in vision H53.9 and Evaluation for contraceptive implant Z30.018 [facility] [id number] [place] [address] 24904- 7040 20 Jul, 2015 [facility] [id number] [place] [address] 82353- 5558 24 Jun, 2015 [facility] [id number] [place] [address] 88155- 6870 21 Jun, 2015 [facility] [id number] [place] [address] 54971- 8859 16 Jun, 2015 [facility] [id number] [place] [address] 20722- 1857 15 Jun, 2015 [facility] [id number] [place] [address] 28919- 9641 15 Jun, 2015 Cough 786.2 [facility] [id number] [place] [address] 34200- 9485 15 Jun, 2015 [facility] [id number] [place] [address] 02731- 6053 15 Jun, 2015 [facility] [address] [place] [address] 55910- 9774 14 Jun, 2015 [facility] [address] [id number], [place] [address]- 3983 14 Jun, 2015 [facility] [address] [facility] [id number] [place] [address]- 2886 Jun, [facility] [address] [facility] [id number], [place] [address]- 3926 Jun, [facility] [address] [facility] [id number], [place] [address]- 2263 Jun, Supervision of normal first V22.0 [facility] [address] [id number] [place] [address]- 2576 Jun, [facility] [address] [facility] [id number], [place] [address]- 2229 Jun, [facility] [address] [facility] [id number], [place] [address]- 7683 Jun, Supervision of normal first V22.0 [facility] [address] [facility] [id number], [place] [address]- 4435 May, [facility] [address] [facility] [id number], [place] [address]- 2198 May, Supervision of normal first V22.0 [facility] [address] [facility] [id number], [place] [address]- 3176 May, Supervision of normal first V22.0 [facility] [address] [facility] [id number], [place] [address]- 0324 Apr, Supervision of normal first V22.0 [facility] [address] [facility] [id number], [place] [address]- 5756 Apr, [facility] [address] [facility] [id number], [place] [address]- 2996 Apr, [facility] [address] [facility] [id number], [place] [address]- 5059 Apr, Supervision of normal first V22.0 [facility] [address] [id number] [place] [address]- 9242 Apr, [facility] [address] [id number] [place] [address]- 5116 Apr, Supervision of normal first V22.0 [facility] [address] [facility] [id number] [place] [address]- 0166 Mar, [facility] [address] [facility] [id number] [place] [address]- 3768 Mar, Supervision of normal first V22.0 [facility] [address] [id number] [place] [address]- 0837 February, [facility] [address] [facility] [id number] [place] [address]- 2436 February, Supervision of normal first V22.0 [facility] [address] [facility] [id number] [place] [address]- 7515 Jan, [facility] [address] [facility] [id number] [place] [address]- 9055 Jan, [facility] [address] [facility] [id number] [place] [address]84 Dec, [facility] [address] [facility] [id number] [place] [address]- 3024 Dec, [facility] [address] [facility] [id number] [place] [address]- 4929 Dec, [facility] [address] [facility] [id number] [place] [address]- 2090 Dec, [facility] [address] [facility] [id number] [place] [address]- 9456 Dec, [facility] [address] [facility] [id number] [place] [address]- 9706 Dec, [facility] [address] [id number] [place] [address]- 0566 Dec, [facility] [place] [facility] [address] [id number] [place] [address]- 3918 Dec, [facility] [place] [facility] [address] [id number] [place] [address]- 4205 Dec, [facility] [place] [facility] [address] [facility] [id number] [place] [address]- 0947 Dec, [facility] [place] [facility] [address] [id number] [place] [address]- 5505 Dec, [facility] [place] [facility] [address] [id number] [place] [address]- 8998 Dec, [facility] [place] [facility] [address] [facility] [id number] [place] [address]- 4790 Dec, [facility] [place] [facility] [address] [facility] [id number] [place] [address]- 2114 Dec, [facility] [place] [facility] [address] [facility] [id number] [place] [address]- 8300 Dec, [facility] [place] [facility] [address] [facility] [id number] [place] [address]- 7654 Nov, [facility] [place] [facility] [address] [facility] [id number] [place] [address]- 0593 Nov, [facility] [place] [facility] [address] [facility] [id number] [place] [address]- 8108 Nov, 2014 [facility] [place] [facility] [address] [facility] [id number] [place] [address]- 7784 Nov, 2014 [facility] [place] [facility] [address] [id number] [place] [address]- 8282 Nov, 2014 [facility] [place] [facility] [address] [facility] [id number] [place] [address]- 7179 Nov, 2014 [facility] [place] [facility] [address] [facility] [id number] [place] [address]- 1143 Nov, 2014 [facility] [place] [facility] [address] [id number] [place] [address]- 0349 Nov, 2014 [facility] [place] [facility] [address] [id number] [place] 8984 Nov, 2014 [facility] [place] [facility] [address] [id number] [place] [address]- 5650 Nov, 2014 [facility] [place] [facility] [address] [id number] [place] [address]- 4409 Nov, [facility] [place] [facility] [address] [id number] [place] [address]- 9648 Nov, [facility] [place] [facility] [address] [id number] [place] [address]- 5803 Oct, [facility] [place] [facility] [address] [id number] [place] [address]- 9841 Oct, [facility] [place] [facility] [address] [id number] [place] [address]- 8966 Oct, [facility] [place] [facility] [address] [id number] [place] [address]- 8006 Oct, [facility] [place] [facility] [address] [facility] [id number] [place] [address]- 9253 Oct, [facility] [place] [facility] [address] [facility] [id number] [place] [address]- 7380 Oct, [facility] [place] [facility] [address] [id number] [place] [address]- 9716 Sep, [facility] [place] [facility] [address] [id number] [place] [address]- 0924 Sep, [facility] [place] [facility] [address] [id number] [place] [address]- 8955 Sep, [facility] [place] [facility] [address] [id number] [place] [address]- 7836 Sep, [facility] [place] [facility] [address] [id number] [place] [address]- 9423 Sep, [facility] [place] [facility] [address] [id number] [place] [address]- 2576 Sep, [facility] [place] [facility] [address] [id number] [place] 6246 Sep, [facility] [place] [facility] [address] [id number] [place] 5101 Sep, [facility] [place] [facility] [address] [id number] [place] [address]- 8744 Aug, [facility] [place] [facility] [address] [id number] [place] [address]- 0493 Aug, [facility] [place] [facility] [address] [id number] [place] [address]- 1060 Aug, [facility] [place] [facility] [address] [id number] [place] [address]- 3349 Aug, [facility] [place] [facility] [address] [id number] [place] [address]- 9143 Jul, [facility] [place] [facility] [address] [id number] [place] [address]- 5188 Jul, [facility] [place] [facility] [address] [id number] [place] [address]- 6259 Jul, [facility] [place] [facility] [address] [id number] [place] [address]- 7635 30 Jun, 2014 [facility] [place] [facility] [address] [id number] [place] [address]- 7683 30 Jun, 2014 [facility] [place] [facility] [address] [id number] [place] [address]- 0388 24 Jun, 2014 [facility] [place] [facility] [address] [id number] [place] [address]- 3528 24 Jun, 2014 [facility] [place] [facility] [address] [id number] [place] [address]- 5873 18 Jun, 2014 [facility] [place] [facility] [address] [id number] [place] [address]- 6325 18 Jun, 2013 [facility] [place] [facility] [address] [id number] [place] [address]- 3166 15 Jun, 2014 [facility] [place] [facility] [address] [id number] [place] [address]- 0956 15 Jun, 2014 [facility] [place] [facility] [address] [id number] [place] [address]- 0012 12 Jun, 2013 [facility] [place] [facility] [address] [id number] [place] [address]- 0241 11 Jun, 2013 [facility] [place] [facility] [address] [id number] [place] [address]- 3018 10 Jun, 2014 [facility] [place] [facility] [address] [id number] [place] [address]- 0295 08 Jun, 2014 [facility] [place] [facility] [address] [id number] [place] [address]- 8542 08 Jun, 2014 [facility] [place] [facility] [address] [id number] [place] [address]- 3249 May, [facility] [place] [facility] [address] [id number] [place] [address]- 7284 May, [facility] [place] [facility] [address] [id number] [place] [address]- 2031 May, [facility] [place] [facility] [address] [id number] [place] [address]- 6945 May, [facility] [place] [facility] [address] [id number] [place] [address]- 5310 May, [facility] [place] [facility] [address] [id number] [place] [address]- 2656 Apr, [facility] [place] [facility] [address] [id number] [place] [address]- 5201 Apr, [facility] [place] [facility] [address] [id number] [place] [address]- 6426 Apr, [facility] [place] [facility] [address] [id number] [place] [address]- 0898 Apr, [facility] [place] [facility] [address] [id number] [place] [address]- 5727 Apr, [facility] [place] [facility] [address] [id number] [place] [address]- 1679 Apr, [facility] [place] [facility] [address] [id number] [place] [address]- 0593 Apr, [facility] [place] [facility] [address] [id number] [place] [address]- 0484 Apr, [facility] [place] [facility] [address] [id number] [place] [address]- 4316 Apr, [facility] [place] [facility] [address] [id number] [place] [address]- 1047 Apr, [facility] [place] [facility] [address] [id number] [place] [address]- 1123 Apr, [facility] [place] [facility] [address] [id number] [place] [address]- 2841 Apr, [facility] [place] [facility] [address] [id number] [place] [address] Apr, [facility] [place] [facility] [address] [id number] [place] [address] Apr, [facility] [place] [facility] [address] [id number] [place] [address] Apr, [facility] [place] [facility] [address] [id number] [place] [address] Apr, [facility] [place] [facility] [address] [id number] [place] [address] Apr, [facility] [place] [facility] [address] [id number] [place] [address] Apr, [facility] [place] [facility] [address] [id number], [place] [address] Apr, [facility] [place] [facility] [address] [id number] [place] [address] Mar, [facility] [place] [facility] [address] [id number] [place] [address] Mar, [facility] [place] [facility] [address] [id number] [place] [address] Mar, [facility] [place] [facility] [address] [id number] [place] [address] Mar, [facility] [place] [facility] [address] [id number] [place] [address] Mar, [facility] [place] [facility] [address] [id number] [place] [address] Mar, [facility] [place] [facility] [address] [facility] [id number] [place] [address] Mar, [facility] [place] [facility] [address] [id number] [place] [address] Mar, [facility] [place] [facility] [address] [id number] [place] [address] Mar, [facility] [place] [facility] [address] [facility] [id number] [place] [address] Mar, [facility] [place] [facility] [address] [id number], [place] [address] Mar, [facility] [place] [facility] [address] [id number], [place] [address] Mar, [facility] [place] [facility] [address] [id number] [place] [address] Mar, [facility] [place] [facility] [address] [id number] [place] [address] Mar, [facility] [place] [facility] [address] [facility] [id number] [place] [address] Mar, [facility] [place] [facility] [address] [id number] [place] [address] 100[address] February, [facility] [place] [facility] [address] [id number] [place] [address] February, [facility] [place] [facility] [address] [id number] [place] [address] February, [facility] [place] [facility] [address] [id number] [place] [address] February, [facility] [place] [facility] [address] [id number] [place] [address] February, [facility] [place] [facility] [address] [id number] [place] [address] February, [facility] [place] [facility] [address] [id number] [place] [address] February, [facility] [place] [facility] [address] [id number] [place] [address] February, [facility] [place] [facility] [address] [id number] [place] [address] February, [facility] [place] [facility] [address] [id number] [place] [address]- [address] February, [facility] [place] [facility] [address] [id number] [place] [address] Jan, [facility] [place] [facility] [address] [id number] [place] [address] Jan, [facility] [place] [facility] [address] [id number] [place] [address] Jan, [facility] [place] [facility] [address] [id number] [place] [address] Jan, [facility] [place] [facility] [address] [id number] [place] [address] Jan, [facility] [place] [facility] [address] [id number] [place] [address] Jan, [facility] [place] [facility] [address] [id number] [place] [address] Dec, [facility] [place] [facility] [address] [id number] [place] [address] Dec, [facility] [place] [facility] [address] [id number] [place] [address] Oct, [facility] [place] [facility] [address] [id number] [place] [address] Oct, [facility] [place] [facility] [address] [id number] [place] [address] Sep, [facility] [place] [facility] [address] [id number] [place] [address] Sep, [facility] [place] [facility] [address] [id number] [place] [address] Sep, [facility] [place] [facility] [address] [id number] [place] [address] Sep, [facility] [place] [facility] [address] [id number] [place] [address] Sep, [facility] [place] [facility] [address] [id number] [place] [address] Aug, [facility] [place] [facility] [address] [id number], [place] [address] Aug, [facility] [place] [facility] [address] [id number], [place] [address] Aug, [facility] [place] [facility] [address] [id number] [place] [address] Aug, [facility] [place] [facility] [address] [id number], [place] [address] Aug, [facility] [place] [facility] [address] [id number], [place] [address] Aug, [facility] [place] [facility] [address] [id number] [place] [address] 11 Aug, 2013 [facility] [address] [id number] [place] [address] 11 Aug, 2013 [facility] [place] [facility] [address] [id number] [place] [address] 10 Aug, 2013 [facility] [place] [facility] [address] [id number] [place] [address] 07 Aug, 2013 [facility] [place] [facility] [address] [id number] [place] [address] Aug, [facility] [place] [facility] [address] [id number] [place] [address] Jul, [facility] [place] [facility] [address] [id number] [place] [address] Jul, [facility] [place] [facility] [address] [id number] [place] [address] Jul, [facility] [place] [facility] [address] [id number] [place] [address] Jul, [facility] [place] [facility] [address] [id number] [place] [address] February, [facility] [place] [facility] [address] [facility] [id number] [place] [address] Jan, [facility] [place] [facility] [address] [id number] [place] [address] 18 Jan, 2013 [facility] [place] [facility] [address] [id number] [place] [address] 10 Jan, 2013 [facility] [place] [facility] [address] [id number] [place] [address] 31 Dec, 2012 [facility] [place] [facility] [address] [id number] [place] 30 Dec, 2012 [facility] [place] [facility] [address] [id number] [place] Dec, [facility] [place] [facility] [address] [id number] [place] [address] Dec, [facility] [address] [id number] [place] [address] Dec, [facility] [place] [facility] [address] [id number] [place] [address] Oct, [facility] [address] [id number] [place] [address] Oct, [facility] [address] [id number] [place] [address] Oct, [facility] [address] [id number] [place] [address] Oct, [facility] [address] [id number] [place] [address] Sep, [facility] [address] [id number] [place] [address] Sep, [facility] [address] [id number] [place] [address] Sep, [facility] [address] [id number] [place] [address] Aug, [facility] [address] [id number] [place] [address] Aug, [facility] [place] [facility] [address] [id number] [place] [address] Aug, [facility] [place] [facility] [address] [id number] [place] [address] Aug, [facility] [place] [facility] [address] [id number] [place] [address] Aug, [facility] [place] [facility] [address] [id number] [place] [address] Jul, [facility] [place] [facility] [address] [id number], [place] [address] Jul, [facility] [address], [place] [address] Jul, [facility] [address], [place] [address] Jul, [facility] [address]65[address], [place] [address] Jul, [facility] [id number] [place] [address] Jul, [facility] [address]65[address], [place] [address] Dec, [facility] [id number] [place] [address] Dec, [facility] [id number] [place] [address] 25[address] Jun, [facility] [address]65[address], [place] [address] Mar, [facility] [address] [id number], [place] [address] Jun, IMMUNIZATIONS No Known Immunizations SOCIAL HISTORY Never Assessed REASON FOR VISIT fever/vomiting--tjanssenMA, -fever lasting 3 days 100 and above. Vomiting last night and this am. Passed out this financial planning adviser while exiting bathroom. , -c/ o congestion and hard of swollowing. PLAN OF CARE Activity Details Follow Up prn Reason: VITAL SIGNS Height 68 in 2017-10-26 Weight 135.8 lbs 2017-10-26 Temperature 99.4 degrees Fahrenheit 2017-10-26 Heart Rate 82 bpm 2017-10-26 BMI 20.65 kg/m2 2017-10-26 Blood pressure systolic 108 mmHg 2017-10-26 Blood pressure diastolic 72 mmHg 2017-10-26 MEDICATIONS Medication Instructions Dosage Frequency Start Date End Date Duration Status Tessalon Perles 100 mg Orally Three times a day 1 capsule as needed 8h Oct, Oct, 10 days Active Nexplanon 68 MG Active Dicyclomine HCl 20 mg Orally 3 times a day if needed 1 tablet Oct, Oct, 10 days Active Ondansetron 4 MG Orally every 8 hrs 1 tablet on the tongue and allow to dissolve 8h Oct, 07 days Active Cetirizine HCl 10 mg Orally Once a day 1 tablet 24h Oct, Nov, 30 day(s) Active RESULTS Name Result Date Reference Range INFLUENZA A & B (IN HOUSE) 2017-10-26 INFLUENZA A Positive INFLUENZA B Negative Control + Lot # [id number] Exp date 12/29/2019 PROCEDURES Procedure Date Ordered Result Body Site INFLUENZA ASSAY W/OPTIC Oct 26, 2017 INSTRUCTIONS MEDICATIONS ADMINISTERED No Known Medications MEDICAL (GENERAL) HISTORY Type Description Date Medical History High risk sexual behavior Medical History attention deficit hyperactivity disorder Surgical History tonsillectomy Surgical History tubes in ears Surgical History Dental Sugery Hospitalization History childbirth only
--- OUTSIDE RECORDS SUMMARY | 2018-09-26 14:42 | XMS REPORT ---
Author Author BOSSMAN IVY Organization [employer] Address Unknown Phone Unavailable Care Team Providers Care Timber Packer Name Role Phone BOSSMAN IVY CP Unavailable Allergies No Known Allergies Problems [...]
--- OUTSIDE RECORDS SUMMARY | 2018-09-26 14:42 | XMS REPORT ---
Author Author SILAS BIRD Organization [employer] Address Unknown Phone Unavailable Care Team Providers Care Anesthesiologist Physician Name Role Phone SILAS BIRD CP Unavailable Allergies, Adverse Reactions, Alerts Substance Reaction Event Type Sulfur throat swelling Drug Allergy Problems Problem Type Condition Code Onset Dates Condition Status Assessment Routine follow-up Z39.2 Active Problem Irregular menstrual cycle N92.6 Active Problem Evaluation for contraceptive implant Z30.018 Active Problem High risk sexual behavior Z72.51 Active Problem Early skin lesions due to yaws A66.2 Active Problem Dyspareunia N94.1 Active Problem Attn-defct hyperactivity disorder, 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 Active Problem Elevated BP I10 Active Problem Intestinal infection A09 Active Problem Screening-pulmonary TB Z11.1 Active Assessment Change in vision H53.9 Active Assessment General counseling and advice for contraceptive management Z30.09 Active Assessment Leaking of urine R32 Active Assessment Evaluation for contraceptive implant Z30.018 Active Assessment Vaginal itching L29.8 Active Medications Medication Code System Code Instructions Start Date End Date Status Dosage One Daily [facility] [address]29 27-0.8 MG Orally not defined Procedures Procedure Coding System Code Date TRICHOMONAS VAGIN, DIR PROBE CPT-4 67728 Aug 09, 2015 No Charge CPT-4 40570 Aug 09, 2015 Office Visit, Est Pt., Level 3 CPT-4 38629 Aug 09, 2015 CULTURE, BACTERIA, OTHER CPT-4 47513 Aug 09, 2015 Vital Signs Date/Time: Aug 09, 2015 Temperature 97.6 F Weight 164.6 lbs Height 68 in BMI 25.02 Index Blood Pressure Diastolic 78 mmHg Blood Pressure Systolic 118 mmHg Results No Known Results Summary Purpose [employer] Submission
--- OUTSIDE RECORDS SUMMARY | 2018-09-26 14:42 | XMS REPORT ---
Author Author DANIEL SALDANA Organization [employer] Address Unknown Phone Unavailable Care Team Providers Care Heel Seat Flap Stapler Name Role Phone DANIEL SALDANA CP Unavailable Allergies No Known Allergies Problems [...]
--- OUTSIDE RECORDS SUMMARY | 2018-09-26 14:42 | XMS REPORT ---
Author Author RASHAD BORJA Organization [employer] Address Unknown Phone Unavailable Care Team Providers Care Animal Husbandry Manager Name Role Phone RASHAD BORJA CP Unavailable [...]
--- OUTSIDE RECORDS SUMMARY | 2018-09-26 14:43 | XMS REPORT ---
Author Author JORGE THOMAS Organization [employer] Address Unknown Phone Unavailable Care Team Providers Care Fish And Game Club Manager Name Role Phone JORGE THOMAS CP Unavailable Allergies, Adverse Reactions, Alerts Substance Reaction Event Type SulfADIAZINE anaphylaxis Drug Allergy Penicillamine Info Not Available Drug Allergy Problems Problem Type Condition Code Onset Dates Condition Status Assessment Acute cystitis without hematuria N30.00 Active Problem Irregular menstrual cycle N92.6 Active [...] Instructions Start Date End Date Status Dosage Macrobid [facility] [address]-61 100 MG Orally every 12 hrs Aug 16, 2016Aug 1 capsule with food Procedures Procedure Coding System Code Date URINALYSIS, AUTO, W/O SCOPE CPT-4 51371 Aug 16, 2016 Office Visit, Est Pt., Level 3 CPT-4 08495 Aug 16, 2016 Vital Signs Date/Time: Aug 16, 2016 Cardiac Monitoring Heart Rate 88 bpm Weight 164 lbs Height 68 in BMI 24.93 Index Blood Pressure Diastolic 68 mmHg Blood Pressure Systolic 104 mmHg Results Name Result Date Reference Range Unit Abnormality Flag UA LONG DIP (IN HOUSE) ----VIANEY 1+ [id number] ----NIT Negative [id number] ----Exp date [id number] ----Lot # [id number] ----SG >=1.030 [id number] ----KET negative [id number] ----TWAN negative [id number] ----GLU negative [id number] ----Odor no [id number] ----pH 5.5 20160816 ----BLO Trace-intact [id number] ----URO 0.2 [id number] ----Protein Negative [id number] ----Lot # [id number] ----Exp date [id number] ----Clarity Cloudy [id number] ----Color yellow [id number] Summary Purpose [employer] Submission
--- OUTSIDE RECORDS SUMMARY | 2018-09-26 14:43 | XMS REPORT ---
Author Author DANIEL SALDANA [facility] Address [address] [place] [address] Care Team Providers Care Needle Loom Setter Name Role Phone DANIEL SALDANA Unavailable PROBLEMS Unknown Problems ALLERGIES Unknown Allergies SOCIAL HISTORY No smoking Hx information available PLAN OF CARE VITAL SIGNS MEDICATIONS Unknown Medications RESULTS No Results PROCEDURES No Known procedures IMMUNIZATIONS No Known Immunizations
--- OUTSIDE RECORDS SUMMARY | 2018-09-26 14:43 | XMS REPORT ---
Author Author RASHAD BORJA [facility] Address [address] [place] [address] Care Team Providers Care Immigration Judge Name Role Phone RASHAD BORJA Unavailable PROBLEMS Unknown Problems ALLERGIES Unknown Allergies SOCIAL HISTORY No smoking Hx information available PLAN OF CARE VITAL SIGNS MEDICATIONS Unknown Medications RESULTS No Results PROCEDURES No Known procedures IMMUNIZATIONS No Known Immunizations
--- OUTSIDE RECORDS SUMMARY | 2018-09-26 14:43 | XMS REPORT ---
Author Author RASHAD BORJA [facility] [employer] Address Unknown Phone Unavailable Care Team Providers Care Intermediate Card Tender Name Role Phone RASHAD BORJA CP Unavailable [...]
--- OUTSIDE RECORDS SUMMARY | 2018-09-26 14:43 | XMS REPORT ---
Author Author DANIEL SALDANA [facility] Address [address] [place] [address] Care Team Providers Care Chief Design Branch Name Role Phone DANIEL SALDANA Unavailable PROBLEMS Unknown Problems ALLERGIES Unknown Allergies SOCIAL HISTORY No smoking Hx information available PLAN OF CARE VITAL SIGNS MEDICATIONS Unknown Medications RESULTS No Results PROCEDURES No Known procedures IMMUNIZATIONS No Known Immunizations
--- OUTSIDE RECORDS SUMMARY | 2018-09-26 14:43 | XMS REPORT ---
Author Author RASHAD BORJA Organization [employer] Address Unknown Phone Unavailable Care Team Providers Care Manager Of Care Name Role Phone RASHAD BORJA CP Unavailable [...]
--- OUTSIDE RECORDS SUMMARY | 2018-09-26 14:43 | XMS REPORT ---
Author Author RASHAD BORJA Organization [employer] Address Unknown Phone Unavailable Care Team Providers Care Radiation Control Technician Name Role Phone RASHAD BORJA CP Unavailable [...]
--- OUTSIDE RECORDS SUMMARY | 2018-09-26 14:43 | XMS REPORT ---
Author Author RASHAD BORJA [facility] [employer] Address Unknown Phone Unavailable Care Team Providers Care Neck Band Maker Name Role Phone RASHAD BORJA CP Unavailable [...]
--- OUTSIDE RECORDS SUMMARY | 2018-09-26 14:43 | XMS REPORT ---
Author AZAM Booth [facility] [employer] Address Unknown Phone Unavailable Care Team Providers Care Children'S Program Coordinator Name Role Phone AZAM MAY CP Unavailable Allergies No Known Allergies Problems [...]
--- OUTSIDE RECORDS SUMMARY | 2018-09-26 14:43 | XMS REPORT ---
Author Author DENISE LOBO [facility] [employer] Address Unknown Phone Unavailable Care Team Providers Care Director Nurses' Registry Name Role Phone DENISE LOBO CP Unavailable Allergies, Adverse Reactions, Alerts Substance Reaction Event Type Sulfur throat swelling Drug Allergy Problems Problem Type Condition ICD-9 Code Onset Dates Condition Status Problem Irregular menstrual cycle 626.4 Active Assessment Cough 786.2 Active Problem Other general counseling and advice [...] behavior V69.2 Active Medications No Known Medications Procedures Procedure Coding System Code Date Office Visit, Est Pt., Level 3 CPT-4 23471 Jul 03, 2015 Vital Signs Date/Time: Jul 03, 2015 Temperature 97.2 F Weight 174.4 lbs Height 68 in BMI 26.51 Index Blood Pressure Diastolic 76 mmHg Blood Pressure Systolic 110 mmHg Cardiac Monitoring Heart Rate 80 bpm Results No Known Results Summary Purpose [employer] Submission
--- OUTSIDE RECORDS SUMMARY | 2018-09-26 14:43 | XMS REPORT ---
Author Author LUISA KHALIL [facility] Address [address] [place] [address] Care Team Providers Care Mycology Teacher Name Role Phone LUISA KHALIL Unavailable PROBLEMS Type Condition ICD9-CM Code [id number] Code Onset Dates Condition Status SNOMED Code Problem ADHD (attention deficit hyperactivity disorder), combined type F90.2 Active 64216415 ALLERGIES Substance Reaction Event Type Date Status SulfADIAZINE anaphylaxis Drug Allergy Dec, Active Penicillamine Unknown Drug Allergy Dec, Active SOCIAL HISTORY Never Assessed PLAN OF CARE Activity Details Follow Up prn Reason: VITAL SIGNS Height 68 in 2016-12-18 Weight 161.2 lbs 2016-12-18 Temperature 98.3 degrees Fahrenheit 2016-12-18 Heart Rate 76 bpm 2016-12-18 Respiratory Rate 18 2016-12-18 BMI 24.51 kg/m2 2016-12-18 Blood pressure systolic 93 mmHg 2016-12-18 Blood pressure diastolic 62 mmHg 2016-12-18 MEDICATIONS Medication Instructions Dosage Frequency Start Date End Date Duration Status Nexplanon 68 MG Active Keflex 500 mg Orally 3 times a day 1 capsule 8h Nov, Dec, 07 days Active RESULTS No Results PROCEDURES Procedure Date Ordered Result Body Site NAIL REMOVAL SINGLE (COMPLETE OR PARTIAL) 2016-12-18 N/A REMOVAL OF NAIL PLATE December 18, 2016 IMMUNIZATIONS No Known Immunizations MEDICAL (GENERAL) HISTORY Type Description Date Medical History High risk sexual behavior Medical History attention deficit hyperactivity disorder Surgical History tonsillectomy Surgical History tubes in ears Surgical History Dental Sugery Hospitalization History childbirth only
--- OUTSIDE RECORDS SUMMARY | 2018-09-26 14:43 | XMS REPORT ---
Author Author RASHAD BORJA Organization [employer] Address Unknown Phone Unavailable Care Team Providers Care Carpenter Cradle And Dolly Name Role Phone RASHAD BORJA CP Unavailable [...]
--- OUTSIDE RECORDS SUMMARY | 2018-09-26 14:43 | XMS REPORT ---
Author Author YAMINI DILL Organization [facility] Address [address] [place] [address] Care Team Providers Care Senior Civil Engineer Name Role Phone YAMINI DILL Unavailable PROBLEMS Type Condition ICD9-CM Code [id number] Code Onset Dates Condition Status SNOMED Code Problem ADHD (attention deficit hyperactivity disorder), combined type F90.2 Active [id number] ALLERGIES Substance Reaction Event Type Date Status SulfADIAZINE anaphylaxis Drug Allergy Jun, Active SOCIAL HISTORY Never Assessed PLAN OF CARE Activity Details Follow Up prn Reason: VITAL SIGNS Height 68 in 2016-07-06 Weight 163.8 lbs 2016-07-06 Temperature 97.7 degrees Fahrenheit 2016-07-06 Heart Rate 76 bpm 2016-07-06 Respiratory Rate 18 2016-07-06 BMI 24.90 kg/m2 2016-07-06 Blood pressure systolic 96 mmHg 2016-07-06 Blood pressure diastolic 68 mmHg 2016-07-06 MEDICATIONS Medication Instructions Dosage Frequency Start Date End Date Duration Status Pyridium 200 mg Orally Three times a day 1 tablet after meals 8h Jun, Jun, 2 day(s) Active Ciprofloxacin HCl 500 MG Orally Twice a day 1 tablet 12h Jun, Jun, 05 days Active RESULTS Name Result Date Reference Range UA LONG DIP (IN HOUSE) 2016-07-06 Lot # [id number] Exp date Clarity yellow Color cloudy Odor strong GLU Negative TWAN Negative KET Negative SG >=1.030 BLO Trace-lysed pH 5.5 Protein Negative URO 0.2 E.U./dL NIT Negative VIANEY 2+ Lot # [id number] Exp date PROCEDURES Procedure Date Ordered Result Body Site URINALYSIS, AUTO, W/O SCOPE Jul 06, 2016 IMMUNIZATIONS No Known Immunizations MEDICAL (GENERAL) HISTORY Type Description Date Medical History High risk sexual behavior Medical History attention deficit hyperactivity disorder Surgical History tonsillectomy Surgical History tubes in ears Surgical History Dental Sugery Hospitalization History childbirth only
--- OUTSIDE RECORDS SUMMARY | 2018-09-26 14:44 | XMS REPORT ---
Author Author RASHAD BORJA Organization [employer] Address Unknown Phone Unavailable Care Team Providers Care Trade Show Manager Name Role Phone RASHAD BORJA CP [...]
--- OUTSIDE RECORDS SUMMARY | 2018-09-26 14:44 | XMS REPORT ---
Author RASHAD [facility] e[employer] Address Unknown Phone Unavailable Care Team Providers Care Shingle Inspector Name Role Phone RASHAD BORJA Unavailable Allergies No Known Allergies Problems Problem Type Condition ICD-9 Code Onset Dates Condition Status Problem Irregular menstrual cycle 626.4 Active Assessment Supervision of normal first V22.0 Active Problem Other general counseling and advice [...] Office Visit, Est Pt., Level 3 CPT-4 60148 Jun 20, 2015 URINE-NO MICRO CPT-4 67372 Jun 20, 2015 Vital Signs Date/Time: Jun 20, 2015 Temperature 98.0 F Weight 189.0 lbs Height 68 in BMI 28.737 Index Blood Pressure Diastolic 78 mmHg Blood Pressure Systolic 116 mmHg Cardiac Monitoring Heart Rate 86 bpm Results Name Result Date Reference Range Unit Abnormality Flag UA OB DIP (IN HOUSE) Summary Purpose [employer]ClinicalWorks Submission
--- OUTSIDE RECORDS SUMMARY | 2018-09-26 14:44 | XMS REPORT ---
Author Author DANIEL SALDANA Organization [employer] Address Unknown Phone Unavailable Care Team Providers Care Binding Cutter Name Role Phone DANIEL SALDANA CP Unavailable [...]
--- OUTSIDE RECORDS SUMMARY | 2018-09-26 14:44 | XMS REPORT ---
Author DANIEL Smith [facility] Address [address] [place] [address] Care Team Providers Care Scalper Operator Name Role Phone DANIEL SALDANA Unavailable PROBLEMS Type Condition ICD9-CM Code [id number] Code Onset Dates Condition Status SNOMED Code Problem ADHD (attention deficit hyperactivity disorder), combined type F90.2 Active [id number] ALLERGIES No Information SOCIAL HISTORY Never Assessed PLAN OF CARE VITAL SIGNS MEDICATIONS No Known Medications RESULTS No Results PROCEDURES No Known procedures IMMUNIZATIONS No Known Immunizations MEDICAL (GENERAL) HISTORY Type Description Date Medical History High risk sexual behavior Medical History attention deficit hyperactivity disorder Surgical History tonsillectomy Surgical History tubes in ears Surgical History Dental Sugery Hospitalization History childbirth only
--- OUTSIDE RECORDS SUMMARY | 2018-09-26 14:44 | XMS REPORT ---
Author Author YAMINI DILL Organization [facility] Address [address] [place] [address] Care Team Providers Care Candle Wrapping Machine Operator Name Role Phone DILLYAMINI Ch Unavailable PROBLEMS Type Condition ICD9-CM Code [id number] Code Onset Dates Condition Status SNOMED Code Problem ADHD (attention deficit hyperactivity disorder), combined type F90.2 Active [id number] ALLERGIES Substance Reaction Event Type Date Status SulfADIAZINE anaphylaxis Drug Allergy Nov, Active Penicillamine Unknown Drug Allergy Nov, Active SOCIAL HISTORY No smoking Hx information available PLAN OF CARE Activity Details Follow Up prn Reason: VITAL SIGNS Height 68 in 2016-11-20 Weight 170 lbs 2016-11-20 Temperature 97.0 degrees Fahrenheit 2016-11-20 Heart Rate 80 bpm 2016-11-20 Respiratory Rate 20 2016-11-20 BMI 25.85 kg/m2 2016-11-20 Blood pressure systolic 118 mmHg 2016-11-20 Blood pressure diastolic 80 mmHg 2016-11-20 MEDICATIONS Medication Instructions Dosage Frequency Start Date End Date Duration Status Nexplanon 68 MG Active RESULTS Name Result Date Reference Range STREP A (IN HOUSE) 2016-11-20 STREP A negative Control + Lot # [id number] Exp date PROCEDURES Procedure Date Ordered Related Diagnosis Body Site STREP A ASSAY W/OPTIC Nov 20, 2016 Office Visit, Est Pt., Level 3 Nov 20, 2016 IMMUNIZATIONS No Known Immunizations
--- OUTSIDE RECORDS SUMMARY | 2018-09-26 14:44 | XMS REPORT ---
Author Author LUISA KHLAIL [facility] Address [address] [place] [address] Care Team Providers Care Gas Transfer Operator Name Role Phone LUISA KHALIL Unavailable PROBLEMS Type Condition ICD9-CM Code FXL87-FS Code Onset Dates Condition Status SNOMED Code Problem ADHD (attention deficit hyperactivity disorder), combined type F90.2 Active [id number] ALLERGIES Substance Reaction Event Type Date Status SulfADIAZINE anaphylaxis Drug Allergy Nov, Active Penicillamine Unknown Drug Allergy Nov, Active SOCIAL HISTORY Never Assessed PLAN OF CARE Activity Details Follow Up 1 Week Reason:nail removal VITAL SIGNS Height 68 in 2016-12-11 Weight 162 lbs 2016-12-11 Temperature 97.9 degrees Fahrenheit 2016-12-11 Heart Rate 64 bpm 2016-12-11 Respiratory Rate 18 2016-12-11 BMI 24.63 kg/m2 2016-12-11 Blood pressure systolic 110 mmHg 2016-12-11 Blood pressure diastolic 80 mmHg 2016-12-11 MEDICATIONS Medication Instructions Dosage Frequency Start Date End Date Duration Status Keflex 500 mg Orally 3 times a day 1 capsule 8h Nov, Dec, 07 days Active Nexplanon 68 MG Active RESULTS No Results PROCEDURES No Known procedures IMMUNIZATIONS No Known Immunizations MEDICAL (GENERAL) HISTORY Type Description Date Medical History High risk sexual behavior Medical History attention deficit hyperactivity disorder Surgical History tonsillectomy Surgical History tubes in ears Surgical History Dental Sugery Hospitalization History childbirth only
--- OUTSIDE RECORDS SUMMARY | 2018-09-26 14:44 | XMS REPORT ---
Author Author ESTELLE SAMUELS Organization [facility] Address [address] [place] [address] Care Team Providers Care Otolaryngology Teacher Name Role Phone ESTELLE SAMUELS Unavailable PROBLEMS Type Condition ICD9-CM Code CQV18-MR Code Onset Dates Condition Status SNOMED Code Problem ADHD (attention deficit hyperactivity disorder), combined type F90.2 Active 45202853 ALLERGIES Substance Reaction Event Type Date Status SulfADIAZINE anaphylaxis Drug Allergy Nov, Active Penicillamine Unknown Drug Allergy Nov, Active SOCIAL HISTORY Never Assessed PLAN OF CARE VITAL SIGNS MEDICATIONS Medication Instructions Dosage Frequency Start Date End Date Duration Status Nexplanon 68 MG Active RESULTS No Results PROCEDURES No Known procedures IMMUNIZATIONS No Known Immunizations MEDICAL (GENERAL) HISTORY Type Description Date Medical History High risk sexual behavior Medical History attention deficit hyperactivity disorder Surgical History tonsillectomy Surgical History tubes in ears Surgical History Dental Sugery Hospitalization History childbirth only
--- OUTSIDE RECORDS SUMMARY | 2018-09-26 14:44 | XMS REPORT ---
Author Author SILAS BIRD [facility] eClinicalWorks Address Unknown Phone Unavailable Care Team Providers Care Application Spec Name Role Phone SILAS BIRD Unavailable Allergies, Adverse Reactions, Alerts Substance Reaction Event Type SulfADIAZINE anaphylaxis Drug Allergy Penicillamine Info Not Available Drug Allergy Problems Problem Type Condition Code Onset Dates Condition Status Assessment Nexplanon in place Z97.5 Active Assessment Dysuria R30.0 Active Assessment Routine gynecological examination Z01.419 Active Medications Medication Code System Code Instructions Start Date End Date Status Dosage Nexplanon [facility] [address]-87 68 MG Subcutaneous not defined Macrobid [facility] [address]-35 100 MG Orally every 12 hrs Sep 04, 2016Aug 1 capsule with food Procedures Procedure Coding System Code Date No Charge CPT-4 48091 Sep 04, 2016 PIÑA VAG, DNA, DIR PROBE CPT-4 89102 Sep 04, 2016 URINE TEST CPT-4 35874 Sep 04, 2016 VENIPUNCT, ROUTINE* CPT-4 97801 Sep 04, 2016 URINALYSIS, AUTO, W/O SCOPE CPT-4 99916 Sep 04, 2016 LAB NOT BILLED BY [facility] CPT-4 NOBLL Sep 04, 2016 SPECIMEN HANDLING CPT-4 63311 Sep 04, 2016 Office Visit, Est Pt., Level 5 CPT-4 86131 Sep 04, 2016 Vital Signs Date/Time: Sep 04, 2016 Cardiac Monitoring Heart Rate 76 bpm Weight 161.1 lbs Height 68 in BMI 24.49 Index Blood Pressure Diastolic 70 mmHg Blood Pressure Systolic 116 mmHg Results Name Result Date Reference Range Unit Abnormality Flag BACTERIAL VAGINOSIS (IN HOUSE) ----Lot # [id number] ----Exp date 20160904 ----RESULTS Negative [id number] ----Control + [id number] TRICHOMONAS (IN HOUSE) ----Exp date 20160904 ----TRICHOMONAS Negative 20160904 ----Lot # [id number] ----Control + [id number] ROUTINE VENIPUNCTURE UA LONG DIP (IN HOUSE) ----TWAN Negative 20160904 ----GLU Negative 20160904 ----SG 1.020 20160904 ----KET Negative 20160904 ----pH 7.0 20160904 ----Protein Negative 20160904 ----BLO Negative 20160904 ----VIANEY Trace 20160904 ----Color yellow 20160904 ----Odor no 20160904 ----Exp date 20160904 ----URO 0.2 20160904 ----NIT Negative 20160904 ----Clarity slightly cloudy 20160904 ----Lot # [id number] PAP TEST, HPV IF ASCUS ----. . 20160904 CULTURE, URINE ----Urine Culture, Routine Final report [id number] A PDF Report ----PDF Report1 [facility] [id number] TSH ----TSH 1.990 20160904 0.450-4.500 uIU/mL CULTURE, GENITAL ----Result 1 Yeast isolated. [id number] A ----Genital Culture, Routine Final report [id number] A Summary Purpose eClinicalWorks Submission
--- OUTSIDE RECORDS SUMMARY | 2018-09-26 14:44 | XMS REPORT ---
Author Author RASHAD BORJA [facility] eClinicalWorks Address Unknown Phone Unavailable Care Team Providers Care Credit Control Administrator Name Role Phone RASHAD BORJA CP Unavailable [...]
--- OUTSIDE RECORDS SUMMARY | 2018-09-26 14:44 | XMS REPORT ---
Author Author DANIEL SALDANA Organization [employer] Address Unknown Phone Unavailable Care Team Providers Care Unloader Name Role Phone DANIEL SALDANA CP Unavailable [...]
--- OUTSIDE RECORDS SUMMARY | 2018-09-26 14:44 | XMS REPORT ---
Author Author RASHAD BORJA Organization [employer] Address Unknown Phone Unavailable Care Team Providers Care Auto Radiator Mechanic Name Role Phone RASHAD BORJA CP Unavailable [...]
--- OUTSIDE RECORDS SUMMARY | 2018-09-26 14:45 | XMS REPORT ---
Author RASHAD Seals [facility] eClinicalWorks Address Unknown Phone Unavailable Care Team Providers Care Ux Visual Designer Name Role Phone RASHAD BORJA Unavailable Allergies [...] Office Visit, Est Pt., Level 3 CPT-4 64792 Jun 27, 2015 URINE-NO MICRO CPT-4 35330 Jun 27, 2015 Vital Signs Date/Time: Jun 27, 2015 Temperature 97.2 F Weight 189.3 lbs Height 68 in BMI 28.783 Index Blood Pressure Diastolic 68 mmHg Blood Pressure Systolic 112 mmHg Cardiac Monitoring Heart Rate 76 bpm Results Name Result Date Reference Range Unit Abnormality Flag UA OB DIP (IN HOUSE) Summary Purpose eClinicalWorks Submission
--- OUTSIDE RECORDS SUMMARY | 2018-09-26 14:45 | XMS REPORT ---
Author Author RASHAD BORJA [facility] e[employer] Address Unknown Phone Unavailable Care Team Providers Care Vehicle Detailer Name Role Phone RASHAD BORJA CP Unavailable [...]
--- OUTSIDE RECORDS SUMMARY | 2018-09-26 14:45 | XMS REPORT ---
Author Author RASHAD BORJA [facility] Address [address] [place] [address] Care Team Providers Care Thermodynamics Professor Name Role Phone RASHAD BORJA Unavailable PROBLEMS Type Condition ICD9-CM Code [id number] Code Onset Dates Condition Status SNOMED Code Problem ADHD (attention deficit hyperactivity disorder), combined type F90.2 Active [id number] ALLERGIES No Known Allergies SOCIAL HISTORY No smoking Hx information available PLAN OF CARE VITAL SIGNS MEDICATIONS No Known Medications RESULTS No Results PROCEDURES No Known procedures IMMUNIZATIONS No Known Immunizations
--- OUTSIDE RECORDS SUMMARY | 2018-09-26 14:45 | XMS REPORT ---
Author Author RASHAD BORJA [facility] eClinicalWorks Address Unknown Phone Unavailable Care Team Providers Care Stick Inserter Name Role Phone RASHAD BORJA CP Unavailable [...]
--- OUTSIDE RECORDS SUMMARY | 2018-09-26 14:45 | XMS REPORT ---
Author RASHAD Seals [facility] e[employer] Address Unknown Phone Unavailable Care Team Providers Care Secretarial Teacher Name Role Phone RASHAD BORJA Unavailable Allergies [...] Office Visit, Est Pt., Level 3 CPT-4 40861 Jun 13, 2015 URINE-NO MICRO CPT-4 27069 Jun 13, 2015 Vital Signs Date/Time: Jun 13, 2015 Temperature 97.4 F Weight 185.6 lbs Height 68 in BMI 28.22 Index Blood Pressure Diastolic 78 mmHg Blood Pressure Systolic 120 mmHg Results Name Result Date Reference Range Unit Abnormality Flag UA OB DIP (IN HOUSE) Summary Purpose eClinicalWorks Submission
--- OUTSIDE RECORDS SUMMARY | 2018-09-26 14:46 | XMS REPORT ---
Author RASHAD eSals [facility] eClinicalWorks Address Unknown Phone Unavailable Care Team Providers Care Java Lead Developer Name Role Phone RASHAD BORJA Unavailable Allergies [...] Office Visit, Est Pt., Level 3 CPT-4 08443 Jun 06, 2015 DETECT AGNT MULT, DNA, AMPLI CPT-4 89605 Jun 06, 2015 URINE-NO MICRO CPT-4 89676 Jun 06, 2015 Vital Signs Date/Time: Jun 06, 2015 Temperature 98.0 F Weight 184.0 lbs Height 68 in BMI 27.977 Index Blood Pressure Diastolic 70 mmHg Blood Pressure Systolic 112 mmHg Cardiac Monitoring Heart Rate 80 bpm Results Name Result Date Reference Range Unit Abnormality Flag CULTURE, GROUP B STREP (VAGINAL) Summary Purpose eClinicalWorks Submission
--- OUTSIDE RECORDS SUMMARY | 2018-09-26 14:46 | XMS REPORT ---
Author Author JEANINE SHAW Organization [facility] Address [address] [place] [address] Care Team Providers Care Clerical Dentist Assistant Name Role Phone JEANINE SHAW Unavailable PROBLEMS Type Condition ICD9-CM Code [id number] Code Onset Dates Condition Status SNOMED Code Assessment Vaginal yeast infection B37.3 Jun, Active [id number] ALLERGIES Substance Reaction Event Type Date Status SulfADIAZINE anaphylaxis Drug Allergy Jun, Active SOCIAL HISTORY No smoking Hx information available PLAN OF CARE VITAL SIGNS Height 68 in 2016-06-24 Weight 162.4 lbs 2016-06-24 Heart Rate 60 bpm 2016-06-24 Respiratory Rate 18 2016-06-24 BMI 24.69 kg/m2 2016-06-24 Blood pressure systolic 124 mmHg 2016-06-24 Blood pressure diastolic 90 mmHg 2016-06-24 MEDICATIONS Medication Instructions Dosage Frequency Start Date End Date Duration Status Diflucan 150 MG Orally one time dose, may repeat in 72 hours if needed 1 tablet Jun, Jun, 1 days Active RESULTS No Results PROCEDURES Procedure Date Ordered Related Diagnosis Body Site Office Visit, Est Pt., Level 3 Jun 24, 2016 IMMUNIZATIONS No Known Immunizations
--- OUTSIDE RECORDS SUMMARY | 2018-09-26 14:46 | XMS REPORT ---
Author Author RASHAD BORJA Organization [employer] Address Unknown Phone Unavailable Care Team Providers Care Meat Carver Name Role Phone RASHAD BORJA CP Unavailable [...]
--- OUTSIDE RECORDS SUMMARY | 2018-09-26 14:46 | XMS REPORT ---
Author Author RASHAD BORJA [facility] Address [address] [place] [address] Care Team Providers Care Early Childhood Education Coordinator Name Role Phone RASHAD BORJA Unavailable PROBLEMS Unknown Problems ALLERGIES Unknown Allergies SOCIAL HISTORY No smoking Hx information available PLAN OF CARE VITAL SIGNS MEDICATIONS Unknown Medications RESULTS No Results PROCEDURES No Known procedures IMMUNIZATIONS No Known Immunizations
--- OUTSIDE RECORDS SUMMARY | 2018-09-26 14:46 | XMS REPORT ---
Author Author DANIEL SALDANA Organization [employer] Address Unknown Phone Unavailable Care Team Providers Care Spot Sprayer Name Role Phone DANIEL SALADNA CP Unavailable Allergies No Known Allergies Problems [...]
--- OUTSIDE RECORDS SUMMARY | 2018-09-26 14:46 | XMS REPORT ---
Author Author RASHAD BORJA [facility] eClinicalWorks Address Unknown Phone Unavailable Care Team Providers Care Pathology Transcriptionist Name Role Phone RASHAD BORJA CP Unavailable [...]
--- OUTSIDE RECORDS SUMMARY | 2018-09-26 14:46 | XMS REPORT ---
Author Author RASHAD BORJA [facility] eClinicalWorks Address Unknown Phone Unavailable Care Team Providers Care Sailing Officer Name Role Phone RASHAD BORJA CP Unavailable [...]
--- OUTSIDE RECORDS SUMMARY | 2018-09-26 14:46 | XMS REPORT ---
Author Author JORGE THOMAS Organization [employer] Address Unknown Phone Unavailable Care Team Providers Care Pantograph Setter Name Role Phone JORGE THOMAS CP Unavailable Allergies, Adverse Reactions, Alerts Substance Reaction Event Type Sulfur throat swelling Drug Allergy Problems Problem Type Condition Code Onset Dates Condition Status Assessment Nail, ingrown L60.0 Active Problem Irregular menstrual cycle N92.6 Active Problem Evaluation for contraceptive implant Z30.018 Active Assessment Infected nailbed of toe L03.039 Active Problem High risk sexual behavior Z72.51 Active Problem Early skin lesions due to yaws A66.2 Active Problem Dyspareunia N94.1 Active Problem Attn-defct hyperactivity disorder, 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 Active Problem Elevated BP I10 Active Problem Intestinal infection A09 Active Problem Screening-pulmonary TB Z11.1 Active Medications Medication Code System Code Instructions Start Date End Date Status Dosage One Daily [facility] [address] 27-0.8 MG Orally not defined [place] [facility] [address]-11 5-325 MG Orally every 6 hrs Nov 06, 2015 1 tablet as needed Procedures Procedure Coding System Code Date REMOVAL OF NAIL PLATE CPT-4 57449 Nov 06, 2015 Vital Signs Date/Time: Nov 06, 2015 Temperature 97.0 F Weight 166.7 lbs Height 68 in BMI 25.34 Index Blood Pressure Diastolic 64 mmHg Blood Pressure Systolic 118 mmHg Cardiac Monitoring Heart Rate 68 bpm Results Name Result Date Reference Range Unit Abnormality Flag NAIL REMOVAL SINGLE (COMPLETE OR PARTIAL) Summary Purpose eClinicalWorks Submission
--- OUTSIDE RECORDS SUMMARY | 2018-09-26 14:46 | XMS REPORT ---
Author Author RASHAD BORJA Organization [employer] Address Unknown Phone Unavailable Care Team Providers Care Computerized Machine Fabric Cutter Name Role Phone RASHAD BORJA CP Unavailable [...]
--- OUTSIDE RECORDS SUMMARY | 2018-09-26 14:46 | XMS REPORT ---
Author Author RASHAD BORJA Organization [employer] Address Unknown Phone Unavailable Care Team Providers Care Welfare Manager Name Role Phone RASHAD BORJA CP [...]
--- OUTSIDE RECORDS SUMMARY | 2018-09-26 14:49 | XMS REPORT | Continuity of Care Document ---
Author Author [facility] of [facility] of [facility] Address Unknown Phone Unavailable Allergies Active Description Code Type Severity Reaction Onset Reported/Identified Relationship to Patient Clinical Status Yes Penicillins Drug Allergy N/A N/A 04/05/2009 Yes Sulfa (Sulfonamide Antibiotics) Drug Allergy N/A N/A 04/05/2009 Yes Penicillins Drug Allergy 04/05/2009 Yes Sulfa (Sulfonamide Antibiotics) Drug Allergy 04/05/2009 Yes sulfa drug Drug Allergy 04/05/2009 Yes Penicillins [id number] Drug Allergy Unknown N/A 11/05/2014 Yes SULFA SULFA Unknown N/A 11/05/2014 Yes Sulfa (Sulfonamide Antibiotics) [id number] Drug Allergy Unknown N/A 2015 Medications There is no data. Problems Date Dx Coded Attending Type Code Diagnosis Diagnosed By 06/28/2008 AZAM MAY DO 465.9 UPPER RESPIRATORY INFECTION 06/28/2008 465.9 UPPER RESPIRATORY INFECTION 06/28/2008 465.9 UPPER RESPIRATORY INFECTION 06/28/2008 AZAM MAY DO 465.9 UPPER RESPIRATORY INFECTION 06/28/2008 465.9 UPPER RESPIRATORY INFECTION 06/28/2008 465.9 UPPER RESPIRATORY INFECTION 06/28/2008 JULIANA DAO, ANGIE A 465.9 UPPER RESPIRATORY INFECTION 06/28/2008 JULIANA TOWER WATCHMAN, ANGIE A 465.9 UPPER RESPIRATORY INFECTION 06/28/2008 JULIANA TOWER WATCHMAN, ANGIE A 465.9 UPPER RESPIRATORY INFECTION 06/28/2008 JULIANACARIN RUBINN, ANGIE A 465.9 UPPER RESPIRATORY INFECTION 06/28/2008 GAURAV FERNANDO MD 465.9 UPPER RESPIRATORY INFECTION 06/28/2008 AYUSH HILLS APRN R 465.9 UPPER RESPIRATORY INFECTION 06/28/2008 JULIANA TOWER WATCHMAN, ANGIE A 465.9 UPPER RESPIRATORY INFECTION 06/28/2008 JULIANA DAO, ANGIE A 465.9 UPPER RESPIRATORY INFECTION 06/28/2008 AYUSH HILLS APRN R 465.9 UPPER RESPIRATORY INFECTION 06/28/2008 AYUSH H[place]S APRN R 465.9 UPPER RESPIRATORY INFECTION 06/28/2008 SE TOWER WATCHMAN, CHERELLE 465.9 UPPER RESPIRATORY INFECTION 06/28/2008 SE TOWER WATCHMAN, CHERELLE 465.9 UPPER RESPIRATORY INFECTION 06/28/2008 AZAM MAY DO 465.9 UPPER RESPIRATORY INFECTION 06/28/2008 JULIANA TOWER WATCHMAN, ANGIE A 465.9 UPPER RESPIRATORY INFECTION 06/28/2008 JULIANA TOWER WATCHMAN, ANGIE A 465.9 UPPER RESPIRATORY INFECTION 06/28/2008 JULIANA TOWER WATCHMAN, ANGIE A 465.9 UPPER RESPIRATORY INFECTION 06/28/2008 SIMRAN TOWER WATCHMANLUISA Farias S 465.9 UPPER RESPIRATORY INFECTION 06/28/2008 WILLIAM TOWER WATCHMANJORGE Farias 465.9 UPPER RESPIRATORY INFECTION 06/28/2008 JULIANA TOWER WATCHMAN, ANGIE A 465.9 UPPER RESPIRATORY INFECTION 06/28/2008 JULIANADinora DAO ANGIE A 465.9 UPPER RESPIRATORY INFECTION 06/28/2008 AZAM MAY DO 465.9 UPPER RESPIRATORY INFECTION 06/28/2008 JULIANACARIN DAO ANGIE A 465.9 UPPER RESPIRATORY INFECTION 06/28/2008 HUONG AVINA, RASHAD Hood 465.9 UPPER RESPIRATORY INFECTION 06/28/2008 RASHAD BORJA MD 465.9 UPPER RESPIRATORY INFECTION 04/05/2009 AZAM MAY DO 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 04/05/2009 AZAM MAY DO 692.9 DERMATITIS 04/05/2009 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 04/05/2009 692.9 DERMATITIS 04/05/2009 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 04/05/2009 692.9 DERMATITIS 04/05/2009 AZAM MAY DO 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 04/05/2009 AZAM MAY DO 692.9 DERMATITIS 04/05/2009 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9 DERMATITIS 04/05/2009 GAURAV FERNANDO MD 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 04/05/2009 GAURAV FERNANDO MD 692.9 DERMATITIS 04/05/2009 REINIER RUBINN, AYUSH R 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 04/05/2009 REINIER RUBINN, AYUSH R 692.9 DERMATITIS 04/05/2009 JULIANA APRN, ANGIE A 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 04/05/2009 JULIANA TOWER WATCHMAN, ANGIE A 692.9 DERMATITIS 04/05/2009 JULIANA TOWER WATCHMAN, ANGIE A 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 04/05/2009 JULIANA TOWER WATCHMAN, ANGIE A 692.9 DERMATITIS 04/05/2009 REINIER RUBINN, AYUSH R 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 04/05/2009 REINIER TOWER WATCHMAN, AYUSH R 692.9 DERMATITIS 04/05/2009 REINIER RUBINN, AYUSH R 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 04/05/2009 REINIER DAO, AYUSH R 692.9 DERMATITIS 04/05/2009 SE TOWER WATCHMAN, CHERELLE 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 04/05/2009 SE TOWER WATCHMAN, CHERELLE 692.9 DERMATITIS 04/05/2009 SE TOWER WATCHMAN, CHERELLE 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 04/05/2009 SE TOWER WATCHMAN, CHERELLE 692.9 DERMATITIS 04/05/2009 MAY DO, AZAM K 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 04/05/2009 MAY DO, AZAM K 692.9 DERMATITIS 04/05/2009 JULIANA TOWER WATCHMAN, ANGIE A 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 04/05/2009 JULIANACARIN DAO, ANGIE A 692.9 DERMATITIS 04/05/2009 JULIANA TOWER WATCHMAN, ANGIE A 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 04/05/2009 JULIANA TOWER WATCHMAN, ANGIE A 692.9 DERMATITIS 04/05/2009 JULIANA TOWER WATCHMAN, ANGIE A 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 04/05/2009 JULIANA TOWER WATCHMAN, ANGIE A 692.9 DERMATITIS 04/05/2009 SIMRAN DAO, LUISA S 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 04/05/2009 SIMRAN DAO, LUISA S 692.9 DERMATITIS 04/05/2009 JORGE THOMAS APRN T 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 04/05/2009 JORGE THOMAS APRN T 692.9 DERMATITIS 04/05/2009 JULIANA APRN, ANGIE A 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 04/05/2009 JULIANA APRN, ANGIE A 692.9 DERMATITIS 04/05/2009 JULIANA APRN, ANGIE A 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 04/05/2009 JULIANA APRN, ANGIE A 692.9 DERMATITIS 04/05/2009 LORI MAY DOA K 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 04/05/2009 LALO SAUCEDO AZAM K 692.9 DERMATITIS 04/05/2009 JULIANA APRN, ANGIE A 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 04/05/2009 JULIANA APRN, ANGIE A 692.9 DERMATITIS 04/05/2009 RASHAD BORJA MD 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 04/05/2009 RASHAD BORJA MD 692.9 DERMATITIS 04/05/2009 RASHAD BORJA MD 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0 SCABIES 04/10/2009 JULIANA TOWER WATCHMAN, ANGIE A 133.0 SCABIES 04/10/2009 REINIER TOWER WATCHMAN, AYUSH R 133.0 SCABIES 04/10/2009 REINIER TOWER WATCHMAN, AYUSH R 133.0 SCABIES 04/10/2009 SE TOWER WATCHMAN, CHERELLE 133.0 SCABIES 04/10/2009 SE TOWER WATCHMAN, CHERELLE 133.0 SCABIES 04/10/2009 AZAM MAY DO 133.0 SCABIES 04/10/2009 JULINAA TOWER WATCHMAN, ANGIE A 133.0 SCABIES 04/10/2009 JULIANA TOWER WATCHMAN, ANGIE A 133.0 SCABIES 04/10/2009 JULIANA TOWER WATCHMAN, ANGIE A 133.0 SCABIES 04/10/2009 SIMRAN TOWER WATCHMAN, LUISA S 133.0 SCABIES 04/10/2009 WILLIAM TOWER WATCHMANJORGE 133.0 SCABIES 04/10/2009 JULIANA TOWER WATCHMAN, ANGIE A 133.0 SCABIES 04/10/2009 JULIANA TOWER WATCHMAN, ANGIE A 133.0 SCABIES 04/10/2009 AZAM MAY DO 133.0 SCABIES 04/10/2009 JULIANA TOWER WATCHMAN, ANGIE A 133.0 SCABIES 04/10/2009 RASHAD BORJA MD 133.0 SCABIES 04/10/2009 RASHAD BORJA MD 133.0 SCABIES 07/04/2009 AZAM MAY DO 487.1 INFLUENZA 07/04/2009 AZAM MAY DO 706.1 ACNE 07/04/2009 487.1 INFLUENZA 07/04/2009 706.1 ACNE 07/04/2009 487.1 INFLUENZA 07/04/2009 706.1 ACNE 07/04/2009 AZAM MAY DO K 487.1 INFLUENZA 07/04/2009 AZAM MAY DO K 706.1 ACNE 07/04/2009 487.1 INFLUENZA 07/04/2009 706.1 ACNE 07/04/2009 487.1 INFLUENZA 07/04/2009 706.1 ACNE 07/04/2009 JULIANA TOWER WATCHMAN, ANGIE A 487.1 INFLUENZA 07/04/2009 JULIANA TOWER WATCHMAN, ANGIE A 706.1 ACNE 07/04/2009 JULIANA TOWER WATCHMAN, ANGIE A 487.1 INFLUENZA 07/04/2009 JULIANA TOWER WATCHMAN, ANGIE A 706.1 ACNE 07/04/2009 JULIANA TOWER WATCHMAN, ANGIE A 487.1 INFLUENZA 07/04/2009 JULIANA TOWER WATCHMAN, ANGIE A 706.1 ACNE 07/04/2009 JULIANA TOWER WATCHMAN, ANGIE A 487.1 INFLUENZA 07/04/2009 JULIANA TOWER WATCHMAN, ANGIE A 706.1 ACNE 07/04/2009 GAURAV FERNANDO MD 487.1 INFLUENZA 07/04/2009 GAURAV FERNANDO MD 706.1 ACNE 07/04/2009 REINIER TOWER WATCHMAN, AYUSH R 487.1 INFLUENZA 07/04/2009 REINIER TOWER WATCHMAN, AYUSH R 706.1 ACNE 07/04/2009 JULIANA TOWER WATCHMAN, ANGIE A 487.1 INFLUENZA 07/04/2009 JULIANA TOWER WATCHMAN, ANGIE A 706.1 ACNE 07/04/2009 JULIANA TOWER WATCHMAN, ANGIE A 487.1 INFLUENZA 07/04/2009 JULIANA TOWER WATCHMAN, ANGIE A 706.1 ACNE 07/04/2009 REINIER TOWER WATCHMAN, AYUSH R 487.1 INFLUENZA 07/04/2009 REINIER TOWER WATCHMAN, AYUSH R 706.1 ACNE 07/04/2009 REINIER TOWER WATCHMAN, AYUSH R 487.1 INFLUENZA 07/04/2009 REINIER TOWER WATCHMAN, AYUSH R 706.1 ACNE 07/04/2009 SE TOWER WATCHMAN, CHERELLE 487.1 INFLUENZA 07/04/2009 SE TOWER WATCHMAN, CHERELLE 706.1 ACNE 07/04/2009 SE TOWER WATCHMAN, CHERELLE 487.1 INFLUENZA 07/04/2009 SE TOWER WATCHMAN, CHERELLE 706.1 ACNE 07/04/2009 MAY DO, AZAM K 487.1 INFLUENZA 07/04/2009 MAY DO, AZAM K 706.1 ACNE 07/04/2009 JULIANA TOWER WATCHMAN, ANGIE A 487.1 INFLUENZA 07/04/2009 JULIANA TOWER WATCHMAN, ANGIE A 706.1 ACNE 07/04/2009 JULIANA TOWER WATCHMAN, ANGIE A 487.1 INFLUENZA 07/04/2009 JULIANA TOWER WATCHMAN, ANGIE A 706.1 ACNE 07/04/2009 JULIANA TOWER WATCHMAN, ANGIE A 487.1 INFLUENZA 07/04/2009 JULIANA TOWER WATCHMAN, ANGIE A 706.1 ACNE 07/04/2009 SIMRAN TOWER WATCHMAN, LUISA S 487.1 INFLUENZA 07/04/2009 SIMRAN TOWER WATCHMAN, LUISA S 706.1 ACNE 07/04/2009 JORGE THOMAS APRN 487.1 INFLUENZA 07/04/2009 JORGE THOMAS APRN 706.1 ACNE 07/04/2009 JULIAAN TOWER WATCHMAN, ANGIE A 487.1 INFLUENZA 07/04/2009 JULIANA TOWER WATCHMAN, ANGIE A 706.1 ACNE 07/04/2009 JULIANA TOWER WATCHMAN, ANGIE A 487.1 INFLUENZA 07/04/2009 JULIANA TOWER WATCHMAN, ANGIE A 706.1 ACNE 07/04/2009 LALO SAUCEDO, AZAM K 487.1 INFLUENZA 07/04/2009 LALO SAUCEDOAZAM K 706.1 ACNE 07/04/2009 JULIANA TOWER WATCHMAN, ANGIE A 487.1 INFLUENZA 07/04/2009 JULIANA TOWER WATCHMAN, ANGIE A 706.1 ACNE 07/04/2009 RASHAD BORJA MD 487.1 INFLUENZA 07/04/2009 RASHAD BORJA MD 706.1 ACNE 07/04/2009 RASHAD BORJA MD 487.1 INFLUENZA 07/04/2009 RASHAD BORJA MD 706.1 ACNE 01/25/2011 Ot 847.0 01/25/2011 Ot 923.10 01/25/2011 Ot 959.09 01/25/2011 Ot E000.8 01/25/2011 Ot E812.1 06/10/2011 MAY AZAM V70.3 SPORTS/SCHOOL EXAM 06/10/2011 V70.3 SPORTS/SCHOOL EXAM 06/10/2011 V70.3 SPORTS/SCHOOL EXAM 06/10/2011 MAY DOAZAM K V70.3 SPORTS/SCHOOL EXAM 06/10/2011 V70.3 SPORTS/SCHOOL EXAM 06/10/2011 V70.3 SPORTS/SCHOOL EXAM 06/10/2011 JULIANA TOWER WATCHMAN, ANGIE A V70.3 SPORTS/SCHOOL EXAM 06/10/2011 JULIANA TOWER WATCHMAN, ANGIE A V70.3 SPORTS/SCHOOL EXAM 06/10/2011 JULIANA TOWER WATCHMAN, ANGIE A V70.3 SPORTS/SCHOOL EXAM 06/10/2011 JULIANA TOWER WATCHMAN, ANGIE A V70.3 SPORTS/SCHOOL EXAM 06/10/2011 ABDULLAHI AVINA, GAURAV V70.3 SPORTS/SCHOOL EXAM 06/10/2011 REINIER TOWER WATCHMAN, AYUSH R V70.3 SPORTS/SCHOOL EXAM 06/10/2011 JULIANA TOWER WATCHMAN, ANGIE A V70.3 SPORTS/SCHOOL EXAM 06/10/2011 JULIANA TOWER WATCHMAN, ANGIE A V70.3 SPORTS/SCHOOL EXAM 06/10/2011 REINIER TOWER WATCHMAN, AYUSH R V70.3 SPORTS/SCHOOL EXAM 06/10/2011 REINIER TOWER WATCHMAN, AYUSH R V70.3 SPORTS/SCHOOL EXAM 06/10/2011 SE TOWER WATCHMAN, CHERELLE V70.3 SPORTS/SCHOOL EXAM 06/10/2011 SE TOWER WATCHMAN, CHERELLE V70.3 SPORTS/SCHOOL EXAM 06/10/2011 AZAM MAY DO K V70.3 SPORTS/SCHOOL EXAM 06/10/2011 JULIANA TOWER WATCHMAN, ANGIE A V70.3 SPORTS/SCHOOL EXAM 06/10/2011 JULIANA TOWER WATCHMAN, ANGIE A V70.3 SPORTS/SCHOOL EXAM 06/10/2011 JULIANA TOWER WATCHMAN, ANGIE A V70.3 SPORTS/SCHOOL EXAM 06/10/2011 SIMRAN TOWER WATCHMAN, LUISA S V70.3 SPORTS/SCHOOL EXAM 06/10/2011 JORGE THOMAS APRN V70.3 SPORTS/SCHOOL EXAM 06/10/2011 JULIANA TOWER WATCHMAN, ANGIE A V70.3 SPORTS/SCHOOL EXAM 06/10/2011 ANGIE ANDREWS APRN A V70.3 SPORTS/SCHOOL EXAM 06/10/2011 AZAM MAY DO V70.3 SPORTS/SCHOOL EXAM 06/10/2011 ANGIE ANDREWS APRN A V70.3 SPORTS/SCHOOL EXAM 06/10/2011 HUONG AVINA, RASHAD Hood V70.3 SPORTS/SCHOOL EXAM 06/10/2011 HUONG AVINA, RASHAD Hood V70.3 SPORTS/SCHOOL EXAM 12/24/2011 AZAM MAY DO 692.6 CONTACT DERMATITIS DUE TO PLANTS 12/24/2011 692.6 CONTACT DERMATITIS DUE TO PLANTS 12/24/2011 692.6 CONTACT DERMATITIS DUE TO PLANTS 12/24/2011 AZAM MAY DO 692.6 CONTACT DERMATITIS DUE TO PLANTS 12/24/2011 692.6 CONTACT DERMATITIS DUE TO PLANTS 12/24/2011 692.6 CONTACT DERMATITIS DUE TO PLANTS 12/24/2011 ANGIE ANDREWS APRN A 692.6 CONTACT DERMATITIS DUE TO PLANTS 12/24/2011 ANGIE ANDREWS APRN A 692.6 CONTACT DERMATITIS DUE TO PLANTS 12/24/2011 ANGIE ANDREWS APRN A 692.6 CONTACT DERMATITIS DUE TO PLANTS 12/24/2011 ANGIE ANDREWS APRN A 692.6 CONTACT DERMATITIS DUE TO PLANTS 12/24/2011 GAURAV FERNANDO MD 692.6 CONTACT DERMATITIS DUE TO PLANTS 12/24/2011 AYUSH HILLS APRN R 692.6 CONTACT DERMATITIS DUE TO PLANTS 12/24/2011 ANGIE ANDREWS APRN A 692.6 CONTACT DERMATITIS DUE TO PLANTS 12/24/2011 ANGIE ANDREWS APRN A 692.6 CONTACT DERMATITIS DUE TO PLANTS 12/24/2011 AYUSH HILLS APRN R 692.6 CONTACT DERMATITIS DUE TO PLANTS 12/24/2011 AYUSH HILLS APRN R 692.6 CONTACT DERMATITIS DUE TO PLANTS 12/24/2011 CHERELLE SAEZ APRN 692.6 CONTACT DERMATITIS DUE TO PLANTS 12/24/2011 CHERELLE SAEZ APRN 692.6 CONTACT DERMATITIS DUE TO PLANTS 12/24/2011 AZAM MAY DO 692.6 CONTACT DERMATITIS DUE TO PLANTS 12/24/2011 JULIANA TOWER WATCHMAN, ANGIE A 692.6 CONTACT DERMATITIS DUE TO PLANTS 12/24/2011 JULIANA RUBINN, ANGIE A 692.6 CONTACT DERMATITIS DUE TO PLANTS 12/24/2011 JULIANA RUBINN, ANGIE A 692.6 CONTACT DERMATITIS DUE TO PLANTS 12/24/2011 SIMRAN TOWER WATCHMAN LUISA Veliz 692.6 CONTACT DERMATITIS DUE TO PLANTS 12/24/2011 WILLIAM DAO JORGE Slade 692.6 CONTACT DERMATITIS DUE TO PLANTS 12/24/2011 JULIANA RUBINN, ANGIE A 692.6 CONTACT DERMATITIS DUE TO PLANTS 12/24/2011 JULIANA RUBINN, ANGIE A 692.6 CONTACT DERMATITIS DUE TO PLANTS 12/24/2011 MAY DOLORIA K 692.6 CONTACT DERMATITIS DUE TO PLANTS 12/24/2011 JULIANA DAO, ANGIE A 692.6 CONTACT DERMATITIS DUE TO PLANTS 12/24/2011 HUONG AVINA, RASHAD Hood 692.6 CONTACT DERMATITIS DUE TO PLANTS 12/24/2011 RASHAD BORJA MD 692.6 CONTACT DERMATITIS DUE TO PLANTS 07/28/2012 AZAM MAY DO 616.10 VAGINITIS AND VULVOVAGINITIS UNSPECIFIED 07/28/2012 MAY LORI SAUCEDOA K V20.2 WELL CHILD 07/28/2012 LORI MAY DOA Katharina V65.3 COUNSELING - DIETARY 07/28/2012 LORI MAY DOA K V65.45 STD COUNSELING 07/28/2012 616.10 VAGINITIS AND VULVOVAGINITIS UNSPECIFIED 07/28/2012 V20.2 WELL CHILD 07/28/2012 V65.3 COUNSELING - DIETARY 07/28/2012 V65.45 STD COUNSELING 07/28/2012 616.10 VAGINITIS 07/28/2012 V20.2 WELL CHILD 07/28/2012 V65.3 COUNSELING - DIETARY 07/28/2012 V65.45 STD COUNSELING 07/28/2012 LORI MAY DOA K 616.10 VAGINITIS 07/28/2012 MAY DOLORIA K V20.2 WELL CHILD 07/28/2012 MAY LORI SAUCEDOA K V65.3 COUNSELING - DIETARY 07/28/2012 MAY LORI SAUCEDOA K V65.45 STD COUNSELING 07/28/2012 616.10 VAGINITIS 07/28/2012 V20.2 WELL CHILD 07/28/2012 V65.3 COUNSELING - DIETARY 07/28/2012 V65.45 STD COUNSELING 07/28/2012 616.10 VAGINITIS 07/28/2012 V20.2 WELL CHILD 07/28/2012 V65.3 COUNSELING - DIETARY 07/28/2012 V65.45 STD COUNSELING 07/28/2012 JULIANA DAO ANGIE A 616.10 VAGINITIS 07/28/2012 JULIANA URBINDinora ANGIE A V20.2 WELL CHILD 07/28/2012 JULIANA RUBINN, ANGIE A V65.3 COUNSELING - DIETARY 07/28/2012 JULIANA RUBINDinora ANGIE A V65.45 STD COUNSELING 07/28/2012 JULIANA TOWER WATCHMAN, ANGIE A 616.10 VAGINITIS 07/28/2012 JULIANA TOWER WATCHMAN, ANGIE A V20.2 WELL CHILD 07/28/2012 JULIANA RUBINDinora ANGIE A V65.3 COUNSELING - DIETARY 07/28/2012 JULIANA RUBINDinora ANGIE A V65.45 STD COUNSELING 07/28/2012 JULIANA TOWER WATCHMAN, ANGIE A 616.10 VAGINITIS 07/28/2012 JULIANA RUBINN, ANGIE A V20.2 WELL CHILD 07/28/2012 JULIANA RUBINDinora ANGIE A V65.3 COUNSELING - DIETARY 07/28/2012 JULIANA TOWER WATCHMAN, ANGIE A V65.45 STD COUNSELING 07/28/2012 JULIANA TOWER WATCHMAN, ANGIE A 616.10 VAGINITIS 07/28/2012 JULIANA TOWER WATCHMAN, ANGIE A V20.2 WELL CHILD 07/28/2012 JULIANA TOWER WATCHMAN, ANGIE A V65.3 COUNSELING - DIETARY 07/28/2012 JULIANA TOWER WATCHMAN, ANGIE A V65.45 STD COUNSELING 07/28/2012 GAURAV FERNANDO MD 616.10 VAGINITIS 07/28/2012 GAURAV FERNANDO MD V20.2 WELL CHILD 07/28/2012 GAURAV FERNANDO MD V65.3 COUNSELING - DIETARY 07/28/2012 GAURAV FERNANDO MD V65.45 STD COUNSELING 07/28/2012 AYUSH HILLS APRN R 616.10 VAGINITIS 07/28/2012 REINIER TOWER WATCHMAN, AYUSH R V20.2 WELL CHILD 07/28/2012 REINIER TOWER WATCHMAN, AYUSH R V65.3 COUNSELING - DIETARY 07/28/2012 REINIER RUBINN, AYUSH R V65.45 STD COUNSELING 07/28/2012 JULIANA TOWER WATCHMAN, ANGIE A 616.10 VAGINITIS 07/28/2012 JULIANA TOWER WATCHMAN, ANGIE A V20.2 WELL CHILD 07/28/2012 JULIANA TOWER WATCHMAN, ANGIE A V65.3 COUNSELING - DIETARY 07/28/2012 JULIANA TOWER WATCHMAN, ANGIE A V65.45 STD COUNSELING 07/28/2012 JULIANA TOWER WATCHMAN, ANGIE A 616.10 VAGINITIS 07/28/2012 JULIANA TOWER WATCHMAN, ANGIE A V20.2 WELL CHILD 07/28/2012 JULIANA TOWER WATCHMAN, ANGIE A V65.3 COUNSELING - DIETARY 07/28/2012 JULIANA TOWER WATCHMAN, ANGIE A V65.45 STD COUNSELING 07/28/2012 REINIER DAO, AYUSH R 616.10 VAGINITIS 07/28/2012 REINIER DAO, AYUSH R V20.2 WELL CHILD 07/28/2012 REINIER RUBINN AYUSH R V65.3 COUNSELING - DIETARY 07/28/2012 REINIER RUBINN, AYUSH R V65.45 STD COUNSELING 07/28/2012 REINIER RUBINN, AYUSH R 616.10 VAGINITIS 07/28/2012 REINIER TOWER WATCHMAN, AYUSH R V20.2 WELL CHILD 07/28/2012 REINIER TOWER WATCHMAN, AYUSH R V65.3 COUNSELING - DIETARY 07/28/2012 REINIER DAO AYUSH R V65.45 STD COUNSELING 07/28/2012 SE TOWER WATCHMAN, CHERELLE 616.10 VAGINITIS 07/28/2012 SE TOWER WATCHMAN, CHERELLE V20.2 WELL CHILD 07/28/2012 SE TOWER WATCHMAN, CHERELLE V65.3 COUNSELING - DIETARY 07/28/2012 SE TOWER WATCHMAN, CHERELLE V65.45 STD COUNSELING 07/28/2012 SE TOWER WATCHMAN, CHERELLE 616.10 VAGINITIS 07/28/2012 SE TOWER WATCHMAN, CHERELLE V20.2 WELL CHILD 07/28/2012 SE TOWER WATCHMAN, CHERELLE V65.3 COUNSELING - DIETARY 07/28/2012 SE TOWER WATCHMAN, CHERELLE V65.45 STD COUNSELING 07/28/2012 MAY DO, AZAM K 616.10 VAGINITIS 07/28/2012 MAY DO, AZAM K V20.2 WELL CHILD 07/28/2012 MAY DO, AZAM K V65.3 COUNSELING - DIETARY 07/28/2012 MAY DO, AZAM K V65.45 STD COUNSELING 07/28/2012 JULIANA RUBINDIANNE FariasIDI A 616.10 VAGINITIS 07/28/2012 JULIANA RUBINDinora ANGIE A V20.2 WELL CHILD 07/28/2012 JULIANA RUBINN ANGIE A V65.3 COUNSELING - DIETARY 07/28/2012 JULIANA RUBINDIANNE FariasIDI A V65.45 STD COUNSELING 07/28/2012 JULIANADIANNE Farias APRNIDI A 616.10 VAGINITIS 07/28/2012 JULIANA TOWER WATCHMAN, ANGIE A V20.2 WELL CHILD 07/28/2012 JULIANA RUBINDinora ANGIE A V65.3 COUNSELING - DIETARY 07/28/2012 JULIANADinora DAO ANGIE A V65.45 STD COUNSELING 07/28/2012 JULIANA RUBINDinora ANGIE A 616.10 VAGINITIS 07/28/2012 JULIANA RUBINDinora ANGIE A V20.2 WELL CHILD 07/28/2012 JULIANA TOWER WATCHMAN, ANGIE A V65.3 COUNSELING - DIETARY 07/28/2012 JULIANA TOWER WATCHMANANGIE Farias A V65.45 STD COUNSELING 07/28/2012 LUISA KHALIL APRN S 616.10 VAGINITIS 07/28/2012 LUISA KHALIL APRN S V20.2 WELL CHILD 07/28/2012 LUISA KHALIL APRN S V65.3 COUNSELING - DIETARY 07/28/2012 DANIELLE KHALIL APRNA S V65.45 STD COUNSELING 07/28/2012 JORGE THOMAS APRN 616.10 VAGINITIS 07/28/2012 JORGE THOMAS APRN V20.2 WELL CHILD 07/28/2012 JORGE THOMAS APRN V65.3 COUNSELING - DIETARY 07/28/2012 JORGE THOMAS APRN V65.45 STD COUNSELING 07/28/2012 ANGIE ANDREWS APRN A 616.10 VAGINITIS 07/28/2012 ANGIE ANDREWS APRN A V20.2 WELL CHILD 07/28/2012 ANGIE ANDREWS APRN A V65.3 COUNSELING - DIETARY 07/28/2012 ANGIE ANDREWS APRN A V65.45 STD COUNSELING 07/28/2012 ANGIE ANDREWS APRN A 616.10 VAGINITIS 07/28/2012 ANGIE ANDREWS APRN A V20.2 WELL CHILD 07/28/2012 ANGIE ANDREWS APRN A V65.3 COUNSELING - DIETARY 07/28/2012 DIANNE NADREWS APRNIDI A V65.45 STD COUNSELING 07/28/2012 MAY DO AZAM K 616.10 VAGINITIS 07/28/2012 MAY DO, AZAM K V20.2 WELL CHILD 07/28/2012 MAY DO, AZAM K V65.3 COUNSELING - DIETARY 07/28/2012 MAY DO AZAM K V65.45 STD COUNSELING 07/28/2012 ANGIE ANDREWS APRN A 616.10 VAGINITIS 07/28/2012 ANGIE ANDREWS APRN A V20.2 WELL CHILD 07/28/2012 ANGIE ANDREWS APRN A V65.3 COUNSELING - DIETARY 07/28/2012 DIANNE ANDREWS APRNIDI A V65.45 STD COUNSELING 07/28/2012 RASHAD BORJA MD 616.10 VAGINITIS 07/28/2012 RASHAD BORJA MD V20.2 WELL CHILD 07/28/2012 RASHAD BORJA MD V65.3 COUNSELING - DIETARY 07/28/2012 RASHAD BORJA MD V65.45 STD COUNSELING 07/28/2012 RASHAD BORJA MD 616.10 VAGINITIS 07/28/2012 RASHAD BORJA MD V20.2 WELL CHILD 07/28/2012 RASHAD BORJA MD V65.3 COUNSELING - DIETARY 07/28/2012 RASHAD BORJA MD V65.45 STD COUNSELING 09/07/2012 MAY DO AZAM K 008.8 GASTROENTERITIS, VIRAL 09/07/2012 008.8 GASTROENTERITIS, VIRAL 09/07/2012 008.8 GASTROENTERITIS, VIRAL 09/07/2012 MAY DO AZAM K 008.8 GASTROENTERITIS, VIRAL 09/07/2012 008.8 GASTROENTERITIS, VIRAL 09/07/2012 008.8 GASTROENTERITIS, VIRAL 09/07/2012 JULIANA TOWER WATCHMAN, ANGIE A 008.8 GASTROENTERITIS, VIRAL 09/07/2012 JULIANA TOWER WATCHMAN, ANGIE A 008.8 GASTROENTERITIS, VIRAL 09/07/2012 JULIANA TOWER WATCHMAN, ANGIE A 008.8 GASTROENTERITIS, VIRAL 09/07/2012 JULIANA TOWER WATCHMAN, ANGIE A 008.8 GASTROENTERITIS, VIRAL 09/07/2012 GAURAV FERNANDO MD 008.8 GASTROENTERITIS, VIRAL 09/07/2012 REINIRE TOWER WATCHMAN, AYUSH R 008.8 GASTROENTERITIS, VIRAL 09/07/2012 JULIANA TOWER WATCHMAN, ANGIE A 008.8 GASTROENTERITIS, VIRAL 09/07/2012 JULIANA TOWER WATCHMAN, ANGIE A 008.8 GASTROENTERITIS, VIRAL 09/07/2012 REINIER TOWER WATCHMAN, AYUSH R 008.8 GASTROENTERITIS, VIRAL 09/07/2012 REINIER TOWER WATCHMAN, AYUSH R 008.8 GASTROENTERITIS, VIRAL 09/07/2012 SE TOWER WATCHMAN, CHERELLE 008.8 GASTROENTERITIS, VIRAL 09/07/2012 SE TOWER WATCHMAN, CHERELLE 008.8 GASTROENTERITIS, VIRAL 09/07/2012 AZAM MAY DO 008.8 GASTROENTERITIS, VIRAL 09/07/2012 JULIANA TOWER WATCHMAN, ANGIE A 008.8 GASTROENTERITIS, VIRAL 09/07/2012 JULIANA TOWER WATCHMAN, ANGIE A 008.8 GASTROENTERITIS, VIRAL 09/07/2012 JULIANA TOWER WATCHMAN, ANGIE A 008.8 GASTROENTERITIS, VIRAL 09/07/2012 LUISA KHALIL APRN 008.8 GASTROENTERITIS, VIRAL 09/07/2012 JORGE THOMAS APRN 008.8 GASTROENTERITIS, VIRAL 09/07/2012 JULIANA TOWER WATCHMAN, ANGIE A 008.8 GASTROENTERITIS, VIRAL 09/07/2012 JULIANA TOWER WATCHMAN, ANGIE A 008.8 GASTROENTERITIS, VIRAL 09/07/2012 AZAM MAY DO 008.8 GASTROENTERITIS, VIRAL 09/07/2012 JULIANA TOWER WATCHMAN, ANGIE A 008.8 GASTROENTERITIS, VIRAL 09/07/2012 RASHAD BORJA MD 008.8 GASTROENTERITIS, VIRAL 09/07/2012 RASHAD BORJA MD 008.8 GASTROENTERITIS, VIRAL 09/29/2012 788.1 DYSURIA 09/29/2012 788.41 URINARY FREQUENCY 09/29/2012 V04.89 GARDASIL (HPV ) DX 09/29/2012 V69.2 HIGH-RISK SEXUAL BEHAVIOR 09/29/2012 788.1 DYSURIA 09/29/2012 788.41 URINARY FREQUENCY 09/29/2012 V04.89 GARDASIL (HPV ) DX 09/29/2012 V69.2 HIGH-RISK SEXUAL BEHAVIOR 09/29/2012 LALO SAUCEDOLORIA K 788.1 DYSURIA 09/29/2012 LALO SAUCEDOLORIA K 788.41 URINARY FREQUENCY 09/29/2012 AZAM MAY DO V04.89 GARDASIL (HPV) DX 09/29/2012 AZAM MAY DO K V69.2 HIGH-RISK SEXUAL BEHAVIOR 09/29/2012 788.1 DYSURIA 09/29/2012 788.41 URINARY FREQUENCY 09/29/2012 V04.89 GARDASIL (HPV ) DX 09/29/2012 V69.2 HIGH-RISK SEXUAL BEHAVIOR 09/29/2012 788.1 DYSURIA 09/29/2012 788.41 URINARY FREQUENCY 09/29/2012 V04.89 GARDASIL (HPV ) DX 09/29/2012 V69.2 HIGH-RISK SEXUAL BEHAVIOR 09/29/2012 ANGIE ANDREWS APRN A 788.1 DYSURIA 09/29/2012 ANGIE ANDREWS APRN A 788.41 URINARY FREQUENCY 09/29/2012 ANGIE ANDREWS APRN A V04.89 GARDASIL (HPV) DX 09/29/2012 ANGIE ANRDEWS APRN A V69.2 HIGH-RISK SEXUAL BEHAVIOR 09/29/2012 ANGIE ANDREWS APRN A 788.1 DYSURIA 09/29/2012 ANGIE ANDREWS APRN A 788.41 URINARY FREQUENCY 09/29/2012 ANGIE ANDREWS APRN A V04.89 GARDASIL (HPV) DX 09/29/2012 ANGIE ANDREWS APRN A V69.2 HIGH-RISK SEXUAL BEHAVIOR 09/29/2012 ANGIE ANDREWS APRN A 788.1 DYSURIA 09/29/2012 ANGIE ANDREWS APRN A 788.41 URINARY FREQUENCY 09/29/2012 ANGIE ANDREWS APRN A V04.89 GARDASIL (HPV) DX 09/29/2012 JULIANA TOWER WATCHMAN, ANGIE A V69.2 HIGH-RISK SEXUAL BEHAVIOR 09/29/2012 JULIANA TOWER WATCHMAN, ANGIE A 788.1 DYSURIA 09/29/2012 JULIANA TOWER WATCHMAN, ANGIE A 788.41 URINARY FREQUENCY 09/29/2012 JULIANA APRN, ANGIE A V04.89 GARDASIL (HPV) DX 09/29/2012 JULIANA APRN, ANGIE A V69.2 HIGH-RISK SEXUAL BEHAVIOR 09/29/2012 GAURAV FERNANDO MD 788.1 DYSURIA 09/29/2012 ABDULLAHI VAINA, GAURAV 788.41 URINARY FREQUENCY 09/29/2012 GAURAV FERNANDO MD V04.89 GARDASIL (HPV) DX 09/29/2012 GAURAV FERNANDO MD V69.2 HIGH-RISK SEXUAL BEHAVIOR 09/29/2012 REINIER DAO AYUSH R 788.1 DYSURIA 09/29/2012 REINIER DAO AYUSH R 788.41 URINARY FREQUENCY 09/29/2012 REINIER DAO AYUSH R V04.89 GARDASIL (HPV) DX 09/29/2012 REINIER DAO AYUSH R V69.2 HIGH-RISK SEXUAL BEHAVIOR 09/29/2012 JULIANA APRN, ANGIE A 788.1 DYSURIA 09/29/2012 JULIANA APRN, ANGIE A 788.41 URINARY FREQUENCY 09/29/2012 JULIANACARNI DAO, ANGIE A V04.89 GARDASIL (HPV) DX 09/29/2012 JULIANA APRN, ANGIE A V69.2 HIGH-RISK SEXUAL BEHAVIOR 09/29/2012 JULIANA APRN, ANGIE A 788.1 DYSURIA 09/29/2012 JULIANA TOWER WATCHMAN, ANGIE A 788.41 URINARY FREQUENCY 09/29/2012 JULIANA APRN, ANGIE A V04.89 GARDASIL (HPV) DX 09/29/2012 JULIANA TOWER WATCHMAN, ANGIE A V69.2 HIGH-RISK SEXUAL BEHAVIOR 09/29/2012 REINIER DAO AYUSH R 788.1 DYSURIA 09/29/2012 REINIER DAO AYUSH R 788.41 URINARY FREQUENCY 09/29/2012 REINIER DAO AYUSH R V04.89 GARDASIL (HPV) DX 09/29/2012 REINIER TOWER WATCHMAN, AYUSH R V69.2 HIGH-RISK SEXUAL BEHAVIOR 09/29/2012 REINIER TOWER WATCHMAN, AYUSH R 788.1 DYSURIA 09/29/2012 REINIER TOWER WATCHMAN, AYUSH R 788.41 URINARY FREQUENCY 09/29/2012 REINIER TOWER WATCHMAN, AYUSH R V04.89 GARDASIL (HPV) DX 09/29/2012 REINIER TOWER WATCHMAN, AUYSH R V69.2 HIGH-RISK SEXUAL BEHAVIOR 09/29/2012 SE TOWER WATCHMAN, CHERELLE 788.1 DYSURIA 09/29/2012 SE TOWER WATCHMAN, CHERELLE 788.41 URINARY FREQUENCY 09/29/2012 SE TOWER WATCHMAN, CHERELLE V04.89 GARDASIL (HPV) DX 09/29/2012 SE TOWER WATCHMAN, CHERELLE V69.2 HIGH-RISK SEXUAL BEHAVIOR 09/29/2012 SE TOWER WATCHMAN, CHERELLE 788.1 DYSURIA 09/29/2012 SE TOWER WATCHMAN, CHERELLE 788.41 URINARY FREQUENCY 09/29/2012 SE TOWER WATCHMAN, CHERELLE V04.89 GARDASIL (HPV) DX 09/29/2012 SE TOWER WATCHMAN, CHERELLE V69.2 HIGH-RISK SEXUAL BEHAVIOR 09/29/2012 MAY DO AZAM K 788.1 DYSURIA 09/29/2012 MAY DO AZAM K 788.41 URINARY FREQUENCY 09/29/2012 MAY DO AZAM K V04.89 GARDASIL (HPV) DX 09/29/2012 MAY DO AZAM K V69.2 HIGH-RISK SEXUAL BEHAVIOR 09/29/2012 JULIANA TOWER WATCHMAN, ANGIE A 788.1 DYSURIA 09/29/2012 JULIANA TOWER WATCHMAN, ANGIE A 788.41 URINARY FREQUENCY 09/29/2012 JULIANA TOWER WATCHMAN, ANGIE A V04.89 GARDASIL (HPV) DX 09/29/2012 JULIANA TOWER WATCHMAN, ANGIE A V69.2 HIGH-RISK SEXUAL BEHAVIOR 09/29/2012 JUILANA TOWER WATCHMAN, ANGIE A 788.1 DYSURIA 09/29/2012 JULIANA TOWER WATCHMAN, ANGIE A 788.41 URINARY FREQUENCY 09/29/2012 JULIANA TOWER WATCHMAN, ANGIE A V04.89 GARDASIL (HPV) DX 09/29/2012 JULIANA DAO, ANGIE A V69.2 HIGH-RISK SEXUAL BEHAVIOR 09/29/2012 JULIANA RUBINN, ANGIE A 788.1 DYSURIA 09/29/2012 JULIANA RUBINN, ANGIE A 788.41 URINARY FREQUENCY 09/29/2012 JULIANA DAO, ANGIE A V04.89 GARDASIL (HPV) DX 09/29/2012 JULIANA RUBINDinora ANGIE A V69.2 HIGH-RISK SEXUAL BEHAVIOR 09/29/2012 SIMRAN RUBINDinora LUISA S 788.1 DYSURIA 09/29/2012 SIMRAN RUBINN, LUISA S 788.41 URINARY FREQUENCY 09/29/2012 SIMRAN RUBINLUISA Farias S V04.89 GARDASIL (HPV) DX 09/29/2012 SIMRAN RUBINDinora LUISA S V69.2 HIGH-RISK SEXUAL BEHAVIOR 09/29/2012 JORGE THOMAS APRN T 788.1 DYSURIA 09/29/2012 JORGE THOMAS APRN 788.41 URINARY FREQUENCY 09/29/2012 JORGE THOMAS APRN V04.89 GARDASIL (HPV) DX 09/29/2012 JORGE THOMAS APRN T V69.2 HIGH-RISK SEXUAL BEHAVIOR 09/29/2012 JULIANA RUBINDinora ANGIE A 788.1 DYSURIA 09/29/2012 JULIANA RUBINN, ANGIE A 788.41 URINARY FREQUENCY 09/29/2012 JULIANA DAO ANGIE A V04.89 GARDASIL (HPV) DX 09/29/2012 JULIANA RUBINDinora ANGIE A V69.2 HIGH-RISK SEXUAL BEHAVIOR 09/29/2012 JULIANA RUBINN, ANGIE A 788.1 DYSURIA 09/29/2012 JULIANA RUBINN, ANGIE A 788.41 URINARY FREQUENCY 09/29/2012 JULIANA RUBINN, ANGIE A V04.89 GARDASIL (HPV) DX 09/29/2012 JULIANA RUBINN, ANGIE A V69.2 HIGH-RISK SEXUAL BEHAVIOR 09/29/2012 MAY DO, AZAM K 788.1 DYSURIA 09/29/2012 MAY DO, AZAM K 788.41 URINARY FREQUENCY 09/29/2012 MAY DO, AZAM K V04.89 GARDASIL (HPV) DX 09/29/2012 AZAM MAY DO Katharina V69.2 HIGH-RISK SEXUAL BEHAVIOR 09/29/2012 JULIANA TOWER WATCHMAN, ANGIE A 788.1 DYSURIA 09/29/2012 JULIANA TOWER WATCHMAN, ANGIE A 788.41 URINARY FREQUENCY 09/29/2012 JULIANA TOWER WATCHMAN, ANGIE A V04.89 GARDASIL (HPV) DX 09/29/2012 JULIANA TOWER WATCHMAN, ANGIE A V69.2 HIGH-RISK SEXUAL BEHAVIOR 09/29/2012 RASHAD BORJA MD 788.1 DYSURIA 09/29/2012 RASHAD BORJA MD 788.41 URINARY FREQUENCY 09/29/2012 RASHAD BORJA MD V04.89 GARDASIL (HPV) DX 09/29/2012 RASHAD BORJA MD V69.2 HIGH-RISK SEXUAL BEHAVIOR 09/29/2012 RASHAD BORJA MD 788.1 DYSURIA 09/29/2012 RASHAD BORJA MD 788.41 URINARY FREQUENCY 09/29/2012 RASHAD BORJA MD V04.89 GARDASIL (HPV) DX 09/29/2012 RASHAD BORJA MD V69.2 HIGH-RISK SEXUAL BEHAVIOR 11/04/2012 462 sore throat 11/04/2012 MAY LORIA Katharina 462 sore throat 11/04/2012 462 sore throat 11/04/2012 462 sore throat 11/04/2012 JULIANA TOWER WATCHMAN, ANGIE A 462 sore throat 11/04/2012 JULIANA TOWER WATCHMAN, ANGIE A 462 sore throat 11/04/2012 JULIANA TOWER WATCHMAN, ANGIE A 462 sore throat 11/04/2012 JULIANA TOWER WATCHMAN, ANGIE A 462 sore throat 11/04/2012 GAURAV FERNANDO MD 462 sore throat 11/04/2012 AYUSH HILLS APRN 462 sore throat 11/04/2012 JULIANA TOWER WATCHMAN, ANGIE A 462 sore throat 11/04/2012 JULIANA TOWER WATCHMAN, ANGIE A 462 sore throat 11/04/2012 AYUSH HILLS APRN 462 sore throat 11/04/2012 AYUSH HILLS APRN R 462 sore throat 11/04/2012 SE TOWER WATCHMAN, CHERELLE 462 sore throat 11/04/2012 SE TOWER WATCHMAN, CHERELLE 462 sore throat 11/04/2012 AZAM MAY DO 462 sore throat 11/04/2012 JULIANA TOWER WATCHMAN, ANGIE A 462 sore throat 11/04/2012 JULIANA TOWER WATCHMAN, ANGIE A 462 sore throat 11/04/2012 JULIANA TOWER WATCHMAN, ANGIE A 462 sore throat 11/04/2012 SIMRAN TOWER WATCHMAN, LUISA S 462 sore throat 11/04/2012 WILLIAM TOWER WATCHMAN, JORGE T 462 sore throat 11/04/2012 JULIANA TOWER WATCHMAN, ANGIE A 462 sore throat 11/04/2012 JULIANA TOWER WATCHMAN, ANGIE A 462 sore throat 11/04/2012 AZAM MAY DO 462 sore throat 11/04/2012 JULIANA TOWER WATCHMAN, ANGIE A 462 sore throat 11/04/2012 HUONG AVINA, RASHAD Hood 462 sore throat 11/04/2012 RASHAD BORJA MD 462 sore throat 11/15/2012 AZAM MAY DO 623.5 LEUKORRHEA NOT SPECIFIED INFECTIVE 11/15/2012 AZAM MAY DO 796.2 ELEVATED BLOOD PRESSURE READING WITHOUT DIAGNOSIS OF HYPERTENSION 11/15/2012 AZAM MAY DO V74.5 STD SCREEN 11/15/2012 623.5 LEUKORRHEA NOT SPECIFIED INFECTIVE 11/15/2012 796.2 ELEVATED BLOOD PRESSURE READING WITHOUT DIAGNOSIS OF HYPERTENSION 11/15/2012 V74.5 STD SCREEN 11/15/2012 623.5 LEUKORRHEA NOT SPECIFIED INFECTIVE 11/15/2012 796.2 ELEVATED BLOOD PRESSURE READING WITHOUT DIAGNOSIS OF HYPERTENSION 11/15/2012 V74.5 STD SCREEN 11/15/2012 JULIANA TOWER WATCHMAN, ANGIE A 623.5 LEUKORRHEA NOT SPECIFIED INFECTIVE 11/15/2012 JULIANA TOWER WATCHMAN, ANGIE A 796.2 ELEVATED BLOOD PRESSURE READING WITHOUT DIAGNOSIS OF HYPERTENSION 11/15/2012 JULIANA TOWER WATCHMAN, ANGIE A V74.5 STD SCREEN 11/15/2012 JULIANA TOWER WATCHMAN, ANGIE A 623.5 LEUKORRHEA NOT SPECIFIED INFECTIVE 11/15/2012 JULIANA TOWER WATCHMAN, ANGIE A 796.2 ELEVATED BLOOD PRESSURE READING WITHOUT DIAGNOSIS OF HYPERTENSION 11/15/2012 JULIANA TOWER WATCHMAN, ANGIE A V74.5 STD SCREEN 11/15/2012 JULIANA TOWER WATCHMAN, ANGIE A 623.5 LEUKORRHEA NOT SPECIFIED INFECTIVE 11/15/2012 JULIANA TOWER WATCHMAN, ANGIE A 796.2 ELEVATED BLOOD PRESSURE READING WITHOUT DIAGNOSIS OF HYPERTENSION 11/15/2012 JULIANA TOWER WATCHMAN, ANGIE A V74.5 STD SCREEN 11/15/2012 JULIANA TOWER WATCHMAN, ANGIE A 623.5 LEUKORRHEA NOT SPECIFIED INFECTIVE 11/15/2012 JULIANA TOWER WATCHMAN, ANGIE A 796.2 ELEVATED BLOOD PRESSURE READING WITHOUT DIAGNOSIS OF HYPERTENSION 11/15/2012 JULIAAN TOWER WATCHMAN, ANGIE A V74.5 STD SCREEN 11/15/2012 GAURAV FERNANDO MD 623.5 LEUKORRHEA NOT SPECIFIED INFECTIVE 11/15/2012 GAURAV FERNANDO MD 796.2 ELEVATED BLOOD PRESSURE READING WITHOUT DIAGNOSIS OF HYPERTENSION 11/15/2012 GAURAV FERNANDO MD V74.5 STD SCREEN 11/15/2012 REINIER DAO AYUSH R 623.5 LEUKORRHEA NOT SPECIFIED INFECTIVE 11/15/2012 BERYL HILLS APRNINA R 796.2 ELEVATED BLOOD PRESSURE READING WITHOUT DIAGNOSIS OF HYPERTENSION 11/15/2012 REINIER DAO, AYUSH R V74.5 STD SCREEN 11/15/2012 JULIANA TOWER WATCHMAN, ANGIE A 623.5 LEUKORRHEA NOT SPECIFIED INFECTIVE 11/15/2012 JULIANA TOWER WATCHMAN, ANGIE A 796.2 ELEVATED BLOOD PRESSURE READING WITHOUT DIAGNOSIS OF HYPERTENSION 11/15/2012 JULIANA TOWER WATCHMAN, ANGIE A V74.5 STD SCREEN 11/15/2012 JULIANA TOWER WATCHMAN, ANGIE A 623.5 LEUKORRHEA NOT SPECIFIED INFECTIVE 11/15/2012 JULIANA TOWER WATCHMAN, ANGIE A 796.2 ELEVATED BLOOD PRESSURE READING WITHOUT DIAGNOSIS OF HYPERTENSION 11/15/2012 JULIANA TOWER WATCHMAN, ANGIE A V74.5 STD SCREEN 11/15/2012 REINIER DAO, AYUSH R 623.5 LEUKORRHEA NOT SPECIFIED INFECTIVE 11/15/2012 REINIER DAO AYUSH R 796.2 ELEVATED BLOOD PRESSURE READING WITHOUT DIAGNOSIS OF HYPERTENSION 11/15/2012 REINIER TOWER WATCHMAN, AYUSH R V74.5 STD SCREEN 11/15/2012 REINIER TOWER WATCHMAN, AYUSH R 623.5 LEUKORRHEA NOT SPECIFIED INFECTIVE 11/15/2012 REINIER TOWER WATCHMAN, AYUSH R 796.2 ELEVATED BLOOD PRESSURE READING WITHOUT DIAGNOSIS OF HYPERTENSION 11/15/2012 REINIER TOWER WATCHMAN, AYUSH R V74.5 STD SCREEN 11/15/2012 SE TOWER WATCHMAN, CHERELLE 623.5 LEUKORRHEA NOT SPECIFIED INFECTIVE 11/15/2012 SE TOWER WATCHMAN, CHERELLE 796.2 ELEVATED BLOOD PRESSURE READING WITHOUT DIAGNOSIS OF HYPERTENSION 11/15/2012 SE TOWER WATCHMAN, CHERELLE V74.5 STD SCREEN 11/15/2012 SE TOWER WATCHMAN, CHERELLE 623.5 LEUKORRHEA NOT SPECIFIED INFECTIVE 11/15/2012 SE TOWER WATCHMAN, CHERELLE 796.2 ELEVATED BLOOD PRESSURE READING WITHOUT DIAGNOSIS OF HYPERTENSION 11/15/2012 SE TOWER WATCHMAN, CHERELLE V74.5 STD SCREEN 11/15/2012 MAY DO AZAM K 623.5 LEUKORRHEA NOT SPECIFIED INFECTIVE 11/15/2012 MAY DO AZAM K 796.2 ELEVATED BLOOD PRESSURE READING WITHOUT DIAGNOSIS OF HYPERTENSION 11/15/2012 MAY DO AZAM K V74.5 STD SCREEN 11/15/2012 JULIANA TOWER WATCHMAN, ANGIE A 623.5 LEUKORRHEA NOT SPECIFIED INFECTIVE 11/15/2012 JULIANA TOWER WATCHMAN, ANGIE A 796.2 ELEVATED BLOOD PRESSURE READING WITHOUT DIAGNOSIS OF HYPERTENSION 11/15/2012 JULIANA TOWER WATCHMAN, ANGIE A V74.5 STD SCREEN 11/15/2012 JULIANA TOWER WATCHMAN, ANGIE A 623.5 LEUKORRHEA NOT SPECIFIED INFECTIVE 11/15/2012 JULIANA TOWER WATCHMAN, ANGIE A 796.2 ELEVATED BLOOD PRESSURE READING WITHOUT DIAGNOSIS OF HYPERTENSION 11/15/2012 JULIANA TOWER WATCHMAN, ANGIE A V74.5 STD SCREEN 11/15/2012 JULIANA TOWER WATCHMAN, ANGIE A 623.5 LEUKORRHEA NOT SPECIFIED INFECTIVE 11/15/2012 JULIANA TOWER WATCHMAN, ANGIE A 796.2 ELEVATED BLOOD PRESSURE READING WITHOUT DIAGNOSIS OF HYPERTENSION 11/15/2012 JULIANA TOWER WATCHMAN, ANGIE A V74.5 STD SCREEN 11/15/2012 SIMRAN TOWER WATCHMAN, LUISA S 623.5 LEUKORRHEA NOT SPECIFIED INFECTIVE 11/15/2012 DANIELLE KHALIL APRNA S 796.2 ELEVATED BLOOD PRESSURE READING WITHOUT DIAGNOSIS OF HYPERTENSION 11/15/2012 SIMRANLUISA HERNÁNDEZ APRN S V74.5 STD SCREEN 11/15/2012 JORGE THOMAS APRN 623.5 LEUKORRHEA NOT SPECIFIED INFECTIVE 11/15/2012 JORGE THOMAS APRN 796.2 ELEVATED BLOOD PRESSURE READING WITHOUT DIAGNOSIS OF HYPERTENSION 11/15/2012 JORGE THOMAS APRN V74.5 STD SCREEN 11/15/2012 DIANNE ANDREWS APRNIDI A 623.5 LEUKORRHEA NOT SPECIFIED INFECTIVE 11/15/2012 JULIANA DAO, ANGIE A 796.2 ELEVATED BLOOD PRESSURE READING WITHOUT DIAGNOSIS OF HYPERTENSION 11/15/2012 JULIANA RUBINN, ANGIE A V74.5 STD SCREEN 11/15/2012 DIANNE ANDREWS APRNIDI A 623.5 LEUKORRHEA NOT SPECIFIED INFECTIVE 11/15/2012 JULIANA RUBINDinora ANGIE A 796.2 ELEVATED BLOOD PRESSURE READING WITHOUT DIAGNOSIS OF HYPERTENSION 11/15/2012 JULIANA DAO, ANGIE A V74.5 STD SCREEN 11/15/2012 MAY DO AZAM K 623.5 LEUKORRHEA NOT SPECIFIED INFECTIVE 11/15/2012 LALO SAUCEDO AZAM K 796.2 ELEVATED BLOOD PRESSURE READING WITHOUT DIAGNOSIS OF HYPERTENSION 11/15/2012 LALO SAUCEDO AZAM K V74.5 STD SCREEN 11/15/2012 JULIANA DAO, ANGIE A 623.5 LEUKORRHEA NOT SPECIFIED INFECTIVE 11/15/2012 JULIANA RUBINDinora ANGIE A 796.2 ELEVATED BLOOD PRESSURE READING WITHOUT DIAGNOSIS OF HYPERTENSION 11/15/2012 JULIANA RUBINN, ANGIE A V74.5 STD SCREEN 11/15/2012 RASHAD BORJA MD 623.5 LEUKORRHEA NOT SPECIFIED INFECTIVE 11/15/2012 RASHAD BORJA MD 796.2 ELEVATED BLOOD PRESSURE READING WITHOUT DIAGNOSIS OF HYPERTENSION 11/15/2012 RASHAD BORJA MD V74.5 STD SCREEN 11/15/2012 RASHAD BORJA MD 623.5 LEUKORRHEA NOT SPECIFIED INFECTIVE 11/15/2012 RASHAD BORJA MD 796.2 ELEVATED BLOOD PRESSURE READING WITHOUT DIAGNOSIS OF HYPERTENSION 11/15/2012 RASHAD BORJA MD V74.5 STD SCREEN 12/21/2012 112.1 CANDIDIASIS VAGINAL 12/21/2012 112.1 CANDIDIASIS VAGINAL 12/21/2012 JULIANA APRN, ANGIE A 112.1 CANDIDIASIS VAGINAL 12/21/2012 JULIANA TOWER WATCHMAN, ANGIE A 112.1 CANDIDIASIS VAGINAL 12/21/2012 JULIANA TOWER WATCHMAN, ANGIE A 112.1 CANDIDIASIS VAGINAL 12/21/2012 JULIANA TOWER WATCHMAN, ANGIE A 112.1 CANDIDIASIS VAGINAL 12/21/2012 GAURAV FERNANDO MD 112.1 CANDIDIASIS VAGINAL 12/21/2012 REINIER DAO, AYUSH R 112.1 CANDIDIASIS VAGINAL 12/21/2012 JULIANA APRN, ANGIE A 112.1 CANDIDIASIS VAGINAL 12/21/2012 JULIANA APRN, ANIGE A 112.1 CANDIDIASIS VAGINAL 12/21/2012 REINIER TOWER WATCHMAN, AYUSH R 112.1 CANDIDIASIS VAGINAL 12/21/2012 REINIER DAO, AYUSH R 112.1 CANDIDIASIS VAGINAL 12/21/2012 SE TOWER WATCHMAN, CHERELLE 112.1 CANDIDIASIS VAGINAL 12/21/2012 SE TOWER WATCHMAN, CHERELLE 112.1 CANDIDIASIS VAGINAL 12/21/2012 AZAM MAY DO K 112.1 CANDIDIASIS VAGINAL 12/21/2012 JULIANA APRN, ANGIE A 112.1 CANDIDIASIS VAGINAL 12/21/2012 JULIANA APRN, ANGIE A 112.1 CANDIDIASIS VAGINAL 12/21/2012 JULIANA APRN, ANGIE A 112.1 CANDIDIASIS VAGINAL 12/21/2012 LUISA KHALIL APRN 112.1 CANDIDIASIS VAGINAL 12/21/2012 JORGE THOMAS APRN 112.1 CANDIDIASIS VAGINAL 12/21/2012 JULIANA APRN, ANGIE A 112.1 CANDIDIASIS VAGINAL 12/21/2012 JULIANA APRN, ANGIE A 112.1 CANDIDIASIS VAGINAL 12/21/2012 AZAM MAY DO K 112.1 CANDIDIASIS VAGINAL 12/21/2012 JULIANA APRN, ANGIE A 112.1 CANDIDIASIS VAGINAL 12/21/2012 RASHAD BORJA MD 112.1 CANDIDIASIS VAGINAL 12/21/2012 RASHAD BORJA MD 112.1 CANDIDIASIS VAGINAL 01/10/2013 V74.1 TB SCREENING 01/10/2013 JULIANA TOWER WATCHMAN, ANGIE A V74.1 TB SCREENING 01/10/2013 JULIANA TOWER WATCHMAN, ANGIE A V74.1 TB SCREENING 01/10/2013 JULIANA TOWER WATCHMAN, ANGIE A V74.1 TB SCREENING 01/10/2013 JULIANA TOWER WATCHMAN, ANGIE A V74.1 TB SCREENING 01/10/2013 ABDULLAHI AVINA, GAURAV V74.1 TB SCREENING 01/10/2013 REINIER TOWER WATCHMAN, AYUSH R V74.1 TB SCREENING 01/10/2013 JULIANA TOWER WATCHMAN, ANGIE A V74.1 TB SCREENING 01/10/2013 JULIANA TOWER WATCHMAN, ANGIE A V74.1 TB SCREENING 01/10/2013 REINIER TOWER WATCHMAN, AYUSH R V74.1 TB SCREENING 01/10/2013 REINIER TOWER WATCHMAN, AYUSH R V74.1 TB SCREENING 01/10/2013 SE TOWER WATCHMAN, CHERELLE V74.1 TB SCREENING 01/10/2013 SE TOWER WATCHMAN, CHERELLE V74.1 TB SCREENING 01/10/2013 AZAM MAY DO K V74.1 TB SCREENING 01/10/2013 JULIANA TOWER WATCHMAN, ANGIE A V74.1 TB SCREENING 01/10/2013 JULIANA TOWER WATCHMAN, ANGIE A V74.1 TB SCREENING 01/10/2013 JULIANA TOWER WATCHMAN, ANGIE A V74.1 TB SCREENING 01/10/2013 SIMRAN TOWER WATCHMAN, LUISA S V74.1 TB SCREENING 01/10/2013 WILLIAM TOWER WATCHMAN, JORGE Slade V74.1 TB SCREENING 01/10/2013 JULIANA TOWER WATCHMAN, ANGIE A V74.1 TB SCREENING 01/10/2013 JULIANA TOWER WATCHMAN, ANGIE A V74.1 TB SCREENING 01/10/2013 LORI MAY DOA K V74.1 TB SCREENING 01/10/2013 JULIANA TOWER WATCHMAN, ANGIE A V74.1 TB SCREENING 01/10/2013 HUONG AVINA, RASHAD Hood V74.1 TB SCREENING 01/10/2013 HUONG AVINA, RASHAD Hood V74.1 TB SCREENING 02/20/2013 SHANTA AVINA, DORIAN Church Ot 881.00 02/20/2013 SHANTA AVINA, DORIAN A Ot E000.8 02/20/2013 SHANTA AVINA, DORIAN A Ot E849.0 02/20/2013 SHANTA AVINA, DORIAN Church Ot E906.0 08/25/2013 JULIANA TOWER WATCHMAN, ANGIE A V04.81 FLU SHOT 08/25/2013 JULIANA TOWER WATCHMAN, ANGIE A V04.81 FLU SHOT 08/25/2013 JULIANA TOWER WATCHMAN, ANGIE A V04.81 FLU SHOT 08/25/2013 ABDULLAHI AVINA, GAURAV V04.81 FLU SHOT 08/25/2013 REINIER TOWER WATCHMAN, AYUSH R V04.81 FLU SHOT 08/25/2013 JULIANA TOWER WATCHMAN, ANGIE A V04.81 FLU SHOT 08/25/2013 JULIANA TOWER WATCHMAN, ANGIE A V04.81 FLU SHOT 08/25/2013 REINIER TOWER WATCHMAN, AYUSH R V04.81 FLU SHOT 08/25/2013 REINIER TOWER WATCHMAN, AYUSH R V04.81 FLU SHOT 08/25/2013 SE TOWER WATCHMAN, CHERELLE V04.81 FLU SHOT 08/25/2013 SE TOWER WATCHMAN, CHERELLE V04.81 FLU SHOT 08/25/2013 MAY DO, AZAM K V04.81 FLU SHOT 08/25/2013 JULIANA TOWER WATCHMAN, ANGIE A V04.81 FLU SHOT 08/25/2013 JULIANA TOWER WATCHMAN, ANGIE A V04.81 FLU SHOT 08/25/2013 JULIANA TOWER WATCHMAN, ANGIE A V04.81 FLU SHOT 08/25/2013 SIMRAN TOWER WATCHMAN, LUISA S V04.81 FLU SHOT 08/25/2013 WILLIAM TOWER WATCHMAN, JORGE Slade V04.81 FLU SHOT 08/25/2013 JULIANA TOWER WATCHMAN, ANGIE A V04.81 FLU SHOT 08/25/2013 JULIANA TOWER WATCHMAN, ANGIE A V04.81 FLU SHOT 08/25/2013 MAY DO, AZAM K V04.81 FLU SHOT 08/25/2013 JULIANA TOWER WATCHMAN, ANGIE A V04.81 FLU SHOT 08/25/2013 RASHAD BORJA MD V04.81 FLU SHOT 08/25/2013 RASHAD BORJA MD V04.81 FLU SHOT 11/17/2013 JULIANA TOWER WATCHMAN, ANGIE A 625.8 OTHER SPECIFIED SYMPTOMS ASSOCIATED WITH FEMALE GENITAL ORGANS 11/17/2013 GAURAV FERNANDO MD 625.8 OTHER SPECIFIED SYMPTOMS ASSOCIATED WITH FEMALE GENITAL ORGANS 11/17/2013 REINIER TOWER WATCHMAN, AYUSH R 625.8 OTHER SPECIFIED SYMPTOMS ASSOCIATED WITH FEMALE GENITAL ORGANS 11/17/2013 JULIANA TOWER WATCHMAN, ANGIE A 625.8 OTHER SPECIFIED SYMPTOMS ASSOCIATED WITH FEMALE GENITAL ORGANS 11/17/2013 JULIANA TOWER WATCHMAN, ANGIE A 625.8 OTHER SPECIFIED SYMPTOMS ASSOCIATED WITH FEMALE GENITAL ORGANS 11/17/2013 REINIER RUBINN, AYUSH R 625.8 OTHER SPECIFIED SYMPTOMS ASSOCIATED WITH FEMALE GENITAL ORGANS 11/17/2013 REINIER RUBINNBERYLAYUSH R 625.8 OTHER SPECIFIED SYMPTOMS ASSOCIATED WITH FEMALE GENITAL ORGANS 11/17/2013 SE TOWER WATCHMAN, CHERELLE 625.8 OTHER SPECIFIED SYMPTOMS ASSOCIATED WITH FEMALE GENITAL ORGANS 11/17/2013 SE TOWER WATCHMAN, CHERELLE 625.8 OTHER SPECIFIED SYMPTOMS ASSOCIATED WITH FEMALE GENITAL ORGANS 11/17/2013 AZAM MAY DO 625.8 OTHER SPECIFIED SYMPTOMS ASSOCIATED WITH FEMALE GENITAL ORGANS 11/17/2013 JULIANA TOWER WATCHMAN, ANGIE A 625.8 OTHER SPECIFIED SYMPTOMS ASSOCIATED WITH FEMALE GENITAL ORGANS 11/17/2013 JULIANA TOWER WATCHMAN ANGIE A 625.8 OTHER SPECIFIED SYMPTOMS ASSOCIATED WITH FEMALE GENITAL ORGANS 11/17/2013 JULIANA TOWER WATCHMAN, ANGIE A 625.8 OTHER SPECIFIED SYMPTOMS ASSOCIATED WITH FEMALE GENITAL ORGANS 11/17/2013 LUISA KHALIL APRN 625.8 OTHER SPECIFIED SYMPTOMS ASSOCIATED WITH FEMALE GENITAL ORGANS 11/17/2013 JORGE THOMAS APRN 625.8 OTHER SPECIFIED SYMPTOMS ASSOCIATED WITH FEMALE GENITAL ORGANS 11/17/2013 JULIANA TOWER WATCHMAN, ANGIE A 625.8 OTHER SPECIFIED SYMPTOMS ASSOCIATED WITH FEMALE GENITAL ORGANS 11/17/2013 JULIANA TOWER WATCHMAN ANGIE A 625.8 OTHER SPECIFIED SYMPTOMS ASSOCIATED WITH FEMALE GENITAL ORGANS 11/17/2013 AZAM MAY DO 625.8 OTHER SPECIFIED SYMPTOMS ASSOCIATED WITH FEMALE GENITAL ORGANS 11/17/2013 JULIANA TOWER WATCHMAN, ANGIE A 625.8 OTHER SPECIFIED SYMPTOMS ASSOCIATED WITH FEMALE GENITAL ORGANS 11/17/2013 RASHAD BORJA MD 625.8 OTHER SPECIFIED SYMPTOMS ASSOCIATED WITH FEMALE GENITAL ORGANS 11/17/2013 RASHAD BORJA MD 625.8 OTHER SPECIFIED SYMPTOMS ASSOCIATED WITH FEMALE GENITAL ORGANS 01/12/2014 ABDULLAHI AVINA, GAURAV 314.01 ADHD COMBINED 01/12/2014 BERYL HILLS APRNINA R 314.01 ADHD COMBINED 01/12/2014 JULIANA TOWER WATCHMAN, ANGIE A 314.01 ADHD COMBINED 01/12/2014 JULIANA TOWER WATCHMAN, ANGIE A 314.01 ADHD COMBINED 01/12/2014 REINIER TOWER WATCHMAN, AYUSH R 314.01 ADHD COMBINED 01/12/2014 REINIER TOWER WATCHMAN, AYUSH R 314.01 ADHD COMBINED 01/12/2014 SE TOWER WATCHMAN, CHERELLE 314.01 ADHD COMBINED 01/12/2014 SE TOWER WATCHMAN, CHERELLE 314.01 ADHD COMBINED 01/12/2014 AZAM MAY DO K 314.01 ADHD COMBINED 01/12/2014 JULIANA TOWER WATCHMAN, ANGIE A 314.01 ADHD COMBINED 01/12/2014 JULIANA TOWER WATCHMAN, ANGIE A 314.01 ADHD COMBINED 01/12/2014 JULIANA TOWER WATCHMAN, ANGIE A 314.01 ADHD COMBINED 01/12/2014 LUISA KHALIL APRN 314.01 ADHD COMBINED 01/12/2014 WILLIAM TOWER WATCHMANJORGE Farias 314.01 ADHD COMBINED 01/12/2014 JULIANA TOWER WATCHMAN, ANGIE A 314.01 ADHD COMBINED 01/12/2014 JULIANA TOWER WATCHMAN, ANGIE A 314.01 ADHD COMBINED 01/12/2014 LORI MAY DOA K 314.01 ADHD COMBINED 01/12/2014 JULIANA TOWER WATCHMAN, ANGIE A 314.01 ADHD COMBINED 01/12/2014 HUONG AVINA, RASHAD Hood 314.01 ADHD COMBINED 01/12/2014 HUONG AVINA, RASHAD Hood 314.01 ADHD COMBINED 03/01/2014 REINIER TOWER WATCHMAN, AYUSH R 102.2 OTHER EARLY SKIN LESIONS OF YAWS 03/01/2014 REINIER DAO, AYUSH R 102.2 OTHER EARLY SKIN LESIONS OF YAWS 03/01/2014 SE TOWER WATCHMAN, CHERELLE 102.2 OTHER EARLY SKIN LESIONS OF YAWS 03/01/2014 SE TOWER WATCHMAN, CHERELLE 102.2 OTHER EARLY SKIN LESIONS OF YAWS 03/01/2014 LORI MAY DOA K 102.2 OTHER EARLY SKIN LESIONS OF YAWS 03/01/2014 JULIANA TOWER WATCHMAN, ANGIE A 102.2 OTHER EARLY SKIN LESIONS OF YAWS 03/01/2014 JULIANA TOWER WATCHMAN, ANGIE A 102.2 OTHER EARLY SKIN LESIONS OF YAWS 03/01/2014 JULIANA TOWER WATCHMAN, ANGIE A 102.2 OTHER EARLY SKIN LESIONS OF YAWS 03/01/2014 SIMRAN TOWER WATCHMAN, LUISA S 102.2 OTHER EARLY SKIN LESIONS OF YAWS 03/01/2014 JORGE THOMAS APRN 102.2 OTHER EARLY SKIN LESIONS OF YAWS 03/01/2014 JULIANA APRN, ANGIE A 102.2 OTHER EARLY SKIN LESIONS OF YAWS 03/01/2014 JULIANA TOWER WATCHMAN, ANGIE A 102.2 OTHER EARLY SKIN LESIONS OF YAWS 03/01/2014 AZAM MAY DO 102.2 OTHER EARLY SKIN LESIONS OF YAWS 03/01/2014 JULIANA APRN, ANGIE A 102.2 OTHER EARLY SKIN LESIONS OF YAWS 03/01/2014 RASHAD BORJA MD 102.2 OTHER EARLY SKIN LESIONS OF YAWS 03/01/2014 RASHAD BORJA MD 102.2 OTHER EARLY SKIN LESIONS OF YAWS 04/27/2014 CHERELLE SAEZ APRN 625.0 DYSPAREUNIA 04/27/2014 AZAM MAY DO 625.0 DYSPAREUNIA 04/27/2014 JULIANA APRN, ANGIE A 625.0 DYSPAREUNIA 04/27/2014 JULIANA APRN, ANGIE A 625.0 DYSPAREUNIA 04/27/2014 JULIANA APRN, ANGIE A 625.0 DYSPAREUNIA 04/27/2014 LUISA KHALIL APRN 625.0 DYSPAREUNIA 04/27/2014 JORGE THOMAS APRN 625.0 DYSPAREUNIA 04/27/2014 JULIANA APRN, ANGIE A 625.0 DYSPAREUNIA 04/27/2014 JULIANA APRN, ANGIE A 625.0 DYSPAREUNIA 04/27/2014 AZAM MAY DO 625.0 DYSPAREUNIA 04/27/2014 JULIANA APRN, ANGIE A 625.0 DYSPAREUNIA 04/27/2014 RASHAD BORJA MD 625.0 DYSPAREUNIA 04/27/2014 RASHAD BORJA MD 625.0 DYSPAREUNIA 06/05/2014 AZAM MAY DO V72.40 TEST 06/05/2014 JULIANA APRN, ANGIE A V72.40 TEST 06/05/2014 JULIANA APRN, ANGIE A V72.40 TEST 06/05/2014 JULIANA APRN, ANGIE A V72.40 TEST 06/05/2014 DANIELLE KHALIL APRNA S V72.40 TEST 06/05/2014 JORGE THOMAS APRN V72.40 TEST 06/05/2014 JULIANA RUBINDinora ANGIE A V72.40 TEST 06/05/2014 JULIANA RUBINDinora ANGIE A V72.40 TEST 06/05/2014 AZAM MAY DO V72.40 TEST 06/05/2014 JULIANA RUBINDinora ANGIE A V72.40 TEST 06/05/2014 RASHAD BORJA MD V72.40 TEST 06/05/2014 RASHAD BORJA MD V72.40 TEST 07/18/2014 JULIANA RUBINDinora ANGIE A 626.4 IRREGULAR MENSTRUAL CYCLE 07/18/2014 JULIANA RUBINDinora ANGIE A V25.09 CONTRACEPTIVE COUNSELING - GENERAL 07/18/2014 JULIANA RUBINDinora ANGIE A 626.4 IRREGULAR MENSTRUAL CYCLE 07/18/2014 JULIANA RUBINDinora ANGIE A V25.09 CONTRACEPTIVE COUNSELING - GENERAL 07/18/2014 SIMRANLUISA PINO APRN S 626.4 IRREGULAR MENSTRUAL CYCLE 07/18/2014 DANIELLE KHALIL APRNA S V25.09 CONTRACEPTIVE COUNSELING - GENERAL 07/18/2014 JORGE THOMAS APRN T 626.4 IRREGULAR MENSTRUAL CYCLE 07/18/2014 JORGE THOMAS APRN V25.09 CONTRACEPTIVE COUNSELING - GENERAL 07/18/2014 JULIANA RUBINDinora ANGIE A 626.4 IRREGULAR MENSTRUAL CYCLE 07/18/2014 JULIANA RUBINDinora ANGIE A V25.09 CONTRACEPTIVE COUNSELING - GENERAL 07/18/2014 JULIANA RUBINDinora ANGIE A 626.4 IRREGULAR MENSTRUAL CYCLE 07/18/2014 JULIANA RUBINDinora ANGIE A V25.09 CONTRACEPTIVE COUNSELING - GENERAL 07/18/2014 AZAM MAY DO K 626.4 IRREGULAR MENSTRUAL CYCLE 07/18/2014 AZAM MAY DO K V25.09 CONTRACEPTIVE COUNSELING - GENERAL 07/18/2014 JULIANA RUBINDinora ANGIE A 626.4 IRREGULAR MENSTRUAL CYCLE 07/18/2014 JULIANA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
--- NOTE | 2018-09-26 15:29 | ED Neurological Problem ---
General Chief Complaint: Neurological Problems Stated Complaint: "HAD A SEIZURE LAST NIGHT" Source: patient Exam Limitations: no limitations History of Present Illness Date Seen by Provider: Sep 26, 2018 Time Seen by Provider: 15:26 Initial Comments To ER with concerns of a possible seizure last night. This occurred at about 10: 30 last night. She states that she was laying on the couch, felt fine then stood up quickly. Upon standing up she felt very lightheaded and fell to the floor where she began to convulse. She did hit her head during the fall. She did shortly thereafter began to feel anxious and with some numbness around her lips. No chest pain or palpitations. She had a similar episode a couple of months ago that she was not evaluated for. She presented here last night at about 11 PM but states that the waiting room was full and she decided that she was feeling better and left. She then told her mother about the symptoms this morning who insisted she be evaluated. She is otherwise known to be healthy with no recent illnesses nausea vomiting diarrhea cough fevers or chills. She does report that she smoked marijuana just before each of these episodes. Timing/Duration: 24 hours Severity: mild Associated Symptoms: No nausea/vomiting, No numbness in legs/feet; paresthesia ; No ringing in ears, No sleepy Allergies and Home Medications Allergies Coded Allergies: Penicillins (Unverified Allergy, Unknown, 11/05/14) Sulfa (Sulfonamide Antibiotics) (Unverified Allergy, Unknown, 01/22/16) Home Medications Cyclobenzaprine HCl 10 Mg Tablet, 10 MG PO Q8H PRN for SPASMS Prescribed by: CHANCE PEREZ on 01/23/161954 Hydrocodone Bit/Acetaminophen 1 Each Tablet, 1 TAB PO Q4H PRN for PAIN Prescribed by: RASHAD BORJA on 06/29/15711 Hydrocodone Bit/Acetaminophen 1 Each Tablet, 1-2 EACH PO Q6H PRN for PAIN Prescribed by: CHANCE PEREZ on 01/23/161954 Ibuprofen 600 Mg Tablet, 600 MG PO Q6H Prescribed by: RASHAD BORJA on 06/29/15711 Prednisone 20 Mg Tab, 40 MG PO DAILY Prescribed by: CHANCE PEREZ on 01/23/161954 Vit/Fe Fumarate/Fa 1 Each Tablet, 1 EACH PO DAILY, (Reported) Patient Home Medication List Home Medication List Reviewed: Yes Review of Systems Review of Systems Constitutional: see HPI Eyes: No Symptoms Reported Ears, Nose, Mouth, Throat: no symptoms reported Respiratory: no symptoms reported Cardiovascular: no symptoms reported Genitourinary: no symptoms reported Musculoskeletal: no symptoms reported Skin: no symptoms reported Psychiatric/Neurological: See HPI Endocrine: No Symptoms Reported Past Aodgpgi-Qkhxqd-Tcfpqf Hx Patient Social History Alcohol Use: Denies Use Recreational Drug Use: Yes (marijuana (cannabis)) Drug of Choice: Marijuana Smoking Status: Never a Smoker Recent Foreign Travel: No Contact w/Someone Who Travel: No Recent Hopitalizations: No Physical Abuse: No Sexual Abuse: No Mistreated: No Fear: No Immunizations Up To Date Tetanus Booster (TDap): Less than 5yrs Date of Influenza Vaccine: Jun 29, 2015 Past Medical History Surgeries: Yes (ORAL, TUBES IN EARS) Ear Surgery, Tonsillectomy Respiratory: No Cardiac: No Neurological: No Reproductive Disorders: No Gastrointestinal: No Musculoskeletal: No Endocrine: No Cancer: No Psychosocial: Yes ADD/ADHD Integumentary: No Blood Disorders: No Family Medical History Patient reports no known family medical history. Physical Exam Vital Signs Vital Signs - First Documented 09/26/18 14:35 Temp 97.8 Pulse 80 Resp 20 B/P (MAP) 137/80 (99) Pulse Ox 100 O2 Delivery Room Air Capillary Refill : Height, Weight, BMI Height: 5'8" Weight: 164lbs. oz. 74.498172it; BMI Method:Stated General Appearance: WD/WN, no apparent distress HEENT: PERRL/EOMI, normal ENT inspection Neck: non-tender, full range of motion Respiratory: no respiratory distress, no accessory muscle use Cardiovascular: regular rate, rhythm, no murmur Gastrointestinal: normal bowel sounds, non tender, soft Neurologic/Psychiatric: alert, normal mood/affect, oriented x 3 Crainal Nerves: normal hearing, normal speech Skin: normal color, warm/dry Progress/Results/Core Measures Results/Orders Lab Results Laboratory Tests Test 09/26/18 15:36 09/26/18 15:43 Range/Units White Blood Count 8.0 4.3-11.0 10^3/uL Red Blood Count 4.62 4.35-5.85 10^6/uL Hemoglobin 13.4 11.5-16.0 G/DL Hematocrit 40 35-52 % Mean Corpuscular Volume 87 80-99 FL Mean Corpuscular Hemoglobin 29 25-34 PG Mean Corpuscular Hemoglobin Concent 34 32-36 G/DL Red Cell Distribution Width 12.6 10.0-14.5 % Platelet Count 232 130-400 10^3/uL Mean Platelet Volume 9.4 7.4-10.4 FL Neutrophils (%) (Auto) 61 42-75 % Lymphocytes (%) (Auto) 31 12-44 % Monocytes (%) (Auto) 8 0-12 % Eosinophils (%) (Auto) 1 0-10 % Basophils (%) (Auto) 0 0-10 % Neutrophils # (Auto) 4.8 1.8-7.8 X 10^3 Lymphocytes # (Auto) 2.4 1.0-4.0 X 10^3 Monocytes # (Auto) 0.6 0.0-1.0 X 10^3 Eosinophils # (Auto) 0.1 0.0-0.3 10^3/uL Basophils # (Auto) 0.0 0.0-0.1 10^3/uL Sodium Level 138 135-145 MMOL/L Potassium Level 3.7 3.6-5.0 MMOL/L Chloride Level 105 98-107 MMOL/L Carbon Dioxide Level 21 21-32 MMOL/L Anion Gap 12 5-14 MMOL/L Blood Urea Nitrogen 11 7-18 MG/DL Creatinine 0.83 0.60-1.30 MG/DL Estimat Glomerular Filtration Rate > 60 BUN/Creatinine Ratio 13 Glucose Level 91 70-105 MG/DL Calcium Level 9.8 8.5-10.1 MG/DL Corrected Calcium 9.5 8.5-10.1 MG/DL Total Bilirubin 1.6 H 0.1-1.0 MG/DL Aspartate Amino Transf (AST/SGOT) 17 5-34 U/L Alanine Aminotransferase (ALT/SGPT) 8 0-55 U/L Alkaline Phosphatase 40 40-136 U/L Total Protein 7.5 6.4-8.2 GM/DL Albumin 4.4 3.2-4.5 GM/DL Serum Test, Qualitative NEGATIVE NEGATIVE Urine Color YELLOW Urine Clarity CLEAR Urine pH 5 5-9 Urine Specific Ash 1.025 H 1.016-1.022 Urine Protein 2+ H NEGATIVE Urine Glucose (UA) NEGATIVE NEGATIVE Urine Ketones 2+ H NEGATIVE Urine Nitrite NEGATIVE NEGATIVE Urine Bilirubin NEGATIVE NEGATIVE Urine Urobilinogen NORMAL NORMAL MG/DL Urine Leukocyte Esterase 2+ H NEGATIVE Urine RBC (Auto) NEGATIVE NEGATIVE Urine RBC NONE /HPF Urine WBC 5-10 H /HPF Urine Squamous Epithelial Cells 10-25 H /HPF Urine Crystals NONE /LPF Urine Bacteria MODERATE H /HPF Urine Casts NONE /LPF Urine Mucus LARGE H /LPF Urine Culture Indicated YES My Orders Orders - RENARD MEYER APRN Hcg,Qualitative Serum (09/26/18 15:16) Ua Culture If Indicated (09/26/18 15:16) Drug Screen Stat (Urine) (09/26/18 15:16) Cbc With Automated Diff (09/26/18 15:16) Comprehensive Metabolic Panel (09/26/18 15:16) Ct Head Wo (09/26/18 15:22) Orthostatic Vital Signs (Adult (09/26/18 15:29) Urine Culture (09/26/18 15:43) Vital Signs/I&O 09/26/18 09/26/18 14:35 15:40 Temp 97.8 Pulse 80 80 98 81 Resp 20 B/P (MAP) 137/80 (99) 103/65 (78) 117/68 (84) 105/66 (79) Pulse Ox 100 O2 Delivery Room Air Departure Impression Primary Impression: Orthostatic syncope Additional Impression: Urinary tract infection Disposition: 01 HOME, SELF-CARE Condition: Stable Departure-Patient Inst. Decision time for Depature: 16:36 Referrals: [facility] (PCP/Family) Primary Care Physician Patient Instructions: Syncope (Fainting) Add. Discharge Instructions: 1. Call your regular doctor tomorrow to make an appointment to be seen for further evaluation. All discharge instructions reviewed with patient and/or family. Voiced understanding. Scripts Cephalexin (Keflex) 500 Mg Capsule 500 MG PO TID, #10 CAP Prov: RENARD MEYER APRN 09/26/18 RENARD MEYER APRN Sep 26, 2018 15:29
[2018-09-26 15:40] VITALS: BP_SYST 103; BP_SYST 105; BP_SYST 117; BP_DIAS 65; BP_DIAS 66; BP_DIAS 68
[2018-09-26 15:45] LABS: BASOPHILS % (AUTO) 0 % (0-10); EOSINOPHILS # (AUTO) 0.1 10^3/uL (0.0-0.3); EOSINOPHILS % (AUTO) 1 % (0-10); HEMATOCRIT 40 % (35-52); HEMOGLOBIN 13.4 G/DL (11.5-16.0); LYMPHOCYTES # (AUTO) 2.4 X 10^3 (1.0-4.0); LYMPHOCYTES % (AUTO) 31 % (12-44); MEAN CORPUSCULAR HEMOGLOBIN 29 PG (25-34); MEAN CORPUSCULAR HGB CONC 34 G/DL (32-36); MEAN CORPUSCULAR VOLUME 87 FL (80-99); MEAN PLATELET VOLUME 9.4 FL (7.4-10.4); MONOCYTES # (AUTO) 0.6 X 10^3 (0.0-1.0); MONOCYTES % (AUTO) 8 % (0-12); NEUTROPHILS # (AUTO) 4.8 X 10^3 (1.8-7.8); NEUTROPHILS % (AUTO) 61 % (42-75); PLATELET COUNT 232 10^3/uL (130-400); RED BLOOD COUNT 4.62 10^6/uL (4.35-5.85); RED CELL DISTRIBUTION WIDTH 12.6 % (10.0-14.5)
[2018-09-26 16:04] LABS: ALANINE AMINOTRANSFERASE 8 U/L (0-55); ALBUMIN 4.4 GM/DL (3.2-4.5); ALKALINE PHOSPHATASE 40 U/L (40-136); BILIRUBIN,TOTAL 1.6 MG/DL (0.1-1.0); BUN/CREATININE RATIO 13; CALCIUM 9.8 MG/DL (8.5-10.1); CARBON DIOXIDE 21 MMOL/L (21-32); CHLORIDE 105 MMOL/L (98-107); CREATININE SERUM 0.83 MG/DL (0.60-1.30); GFR ESTIMATED > 60; GLUCOSE 91 MG/DL (70-105); POTASSIUM 3.7 MMOL/L (3.6-5.0); SODIUM 138 MMOL/L (135-145); TOTAL PROTEIN 7.5 GM/DL (6.4-8.2)
--- NOTE | 2018-09-26 16:33 | Diagnostic Imaging Report ---
PROCEDURE: CT head without contrast. TECHNIQUE: Multiple contiguous axial images were obtained through the brain without the use of intravenous contrast. INDICATION: 2 episodes of seizure activity last night. Pain in the frontal region where patient struck head. COMPARISON: 01/25/2011 FINDINGS: There is no midline shift or mass effect. The ventricles demonstrate unchanged slight asymmetry. The sulci are unremarkable. No evidence for acute intracranial hemorrhage, abnormal extra-axial fluid collections or cerebral edema is present. The basilar cisterns are unremarkable. The bony calvarium is intact. The visualized paranasal sinuses and mastoid air cells are clear. IMPRESSION: Negative appearing noncontrast CT of the head. Dictated by: Dictated on workstation # [id number]
[2018-09-26 16:58] LABS: BILIRUBIN,URINE NEGATIVE (NEGATIVE); CLARITY,URINE CLEAR; COLOR,URINE YELLOW; GLUCOSE, URINE (UA) NEGATIVE (NEGATIVE); KETONES,URINE 2+ (NEGATIVE); LEUKOCYTE ESTERASE ,URINE 2+ (NEGATIVE); NITRITE,URINE NEGATIVE (NEGATIVE); PH,URINE 5 (5-9); PROTEIN,URINE 2+ (NEGATIVE); UROBILINOGEN,URINE NORMAL (NORMAL)
[2018-09-26 17:04] LABS: BACTERIA,URINE MODERATE /HPF
[2018-09-26] MEDS ORDERED: CEPH-507 PO (17:07)
[2018-09-26 17:09] LABS: AMPHETAMINE SCREEN, URINE NEGATIVE (NEGATIVE); BARBITURATE SCREEN URINE NEGATIVE (NEGATIVE); BENZODIAZEPINES SCREEN URINE NEGATIVE (NEGATIVE); CANNABINOID SCREEN, URINE POSITIVE (NEGATIVE); COCAINE SCREEN URINE NEGATIVE (NEGATIVE); METHADONE STAT NEGATIVE (NEGATIVE); METHAMPHETAMINE SCREEN URINE S NEGATIVE (NEGATIVE); OPIATE SCREEN URINE NEGATIVE (NEGATIVE); OXYCODONE STAT NEGATIVE (NEGATIVE); PROPOXYPHENE STAT NEGATIVE (NEGATIVE); TRICYCLIC ANTIDEPRESSANTS SCRE NEGATIVE (NEGATIVE)
[2018-09-26 17:10] VITALS: BP 105/66
== END 2018-09-26 17:10 | disposition home or self-care (01) ==
LOC: EDUNIT# 14:30 → ER 14:32
DX: R55 Syncope and collapse (principal); N39.0 Urinary tract infection, site not specified; F12.10 Cannabis abuse, uncomplicated; F90.9 Attention-deficit hyperactivity disorder, unspecified type; Z90.89 Acquired absence of other organs; Z88.0 Allergy status to penicillin; Z88.2 Allergy status to sulfonamides; Z79.52 Long term (current) use of systemic steroids
CPT/HCPCS: 36415; 70450; 80053; 80306; 81000; 84703; 85025; 87088

== ENCOUNTER → 2018-10-20 | Outpatient (CLI) | payer MEDICAID ==
[~2018-10-20] MED LIST changes: +CEPH-507 PO
== END ==
LOC: CARD 09:54
PROVIDERS: ATTEND Internal Medicine Cardiovascular Disease
DX: R55 Syncope and collapse (principal)
CPT/HCPCS: 93017; 93306

== ENCOUNTER → 2018-11-03 | Outpatient (CLI) | payer MEDICAID ==
[~2018-11-03] VITALS: Ht 172.7 cm; Wt 59.0 kg
[2018-11-03] VITALS (21 sets, daily range): BP systolic 86–107; BP diastolic 53–77
[~2018-11-03] MED LIST changes: +ATROPINE INJECTION 1 MG/10 ML SYR (ABBOTT) ONE; +NS IV 1000 ML 0 ML ONE; +NS IV 1000 ML 1,000 ML IV ONE; +NS IV 1000 ML 1,000 ML ONE
--- NOTE | 2018-11-03 14:16 | Cardiology Tilt Table Test ---
Cardiology-Tilt Table Test Tilt Table Test Date 11/03/18 Baseline Vitals Vital Signs Date Time Temp Pulse Resp B/P (MAP) Pulse Ox O2 Delivery O2 Flow Rate FiO2 11/03/18 13:39 73 17 100/60 (73) 99 Room Air Vital Signs VS - Last 72 Hours, by Label 11/03/18 11/03/18 11/03/18 11/03/18 13:39 13:43 13:46 13:47 Pulse 73 81 84 89 Resp 17 B/P (MAP) 100/60 (73) 99/77 (84) 95/71 (79) 100/71 (81) Pulse Ox 99 O2 Delivery Room Air 11/03/18 11/03/18 11/03/18 11/03/18 13:48 13:49 13:50 13:51 Pulse 84 88 86 80 B/P (MAP) 103/67 (79) 98/71 (80) 106/70 (82) 107/73 (84) 11/03/18 11/03/18 11/03/18 11/03/18 13:52 13:53 13:55 13:56 Pulse 88 81 68 67 B/P (MAP) 106/66 (79) 105/72 (83) 99/62 (74) 99/61 (74) 11/03/18 11/03/18 11/03/18 11/03/18 13:57 13:58 13:59 14:00 Pulse 78 70 112 112 B/P (MAP) 101/60 (74) 99/55 (70) 97/57 (70) 92/65 (74) Patient was tilted to 75 degrees for [10] minutes, then returned to supine position, given [2] sublingual nitroglycerin tablets, then tilted again to 75 degrees for [15] minutes. During test, patient was: had a syncopal event at minute (7 of stage 2 with BP 92/65, HR 51. ) In Conclusion;: Vasovagal Syncope with (Vasodepressor Syncope) Patient was instructed to increase salt and fluids. Recommended compression stockings. ALCIDES GUERRA Nov 03, 2018 14:16
--- NOTE | 2018-11-03 14:30 | NUR ---
Pt discharged home with follow up appointment made with Dr. Baltazar's office. Pt denied any complaints or needs at the time of discharge.
== END ==
LOC: CARD 10-27 10:33
PROVIDERS: ATTEND Internal Medicine Cardiovascular Disease
DX: R55 Syncope and collapse (principal)
CPT/HCPCS: 93660

== ENCOUNTER 2021-05-03 10:05 | Emergency (ER) | payer MEDICAID ==
[~2021-05-03] VITALS: Ht 178 cm; Wt 62.1 kg
[~2021-05-03 10:05] MED LIST changes: -ATROPINE INJECTION 1 MG/10 ML SYR (ABBOTT) ONE; -NS IV 1000 ML 0 ML ONE; -NS IV 1000 ML 1,000 ML IV ONE; -NS IV 1000 ML 1,000 ML ONE
--- NOTE | 2021-05-03 10:43 | ED General ---
General Chief Complaint: Cough/Cold/Flu Symptoms Stated Complaint: FEVER,COUGH Source of Information: Patient Exam Limitations: No Limitations History of Present Illness Date Seen by Provider: May 03, 2021 Time Seen by Provider: 10:30 Initial Comments Patient is a 26-year-old female who presents to the emergency department today with a chief complaint of low-grade fever, cough, body aches and headache. Onset of symptoms yesterday. Patient states that she was exposed to her mother who is Covid positive at the beginning of the week, possibly Thursday. Patient is not Covid vaccinated. She is approximately 5 weeks from an ultrasound dated from yesterday. She denies any earache, runny nose or sore throat. No nausea, vomiting or diarrhea. Patient is not short of breath. She has no chronic medical conditions. She is only taking vitamins. She is not taken any Tylenol for her symptoms. She does have care. Overall patient looks well, nontoxic, normal vital signs and is not hypoxic. All other review of systems reviewed and negative except as stated. Timing/Duration: 1 Day Severity: Mild Associated Systoms: Cough, Fever/Chills, Headaches Allergies and Home Medications Allergies Coded Allergies: Penicillins (Unverified Allergy, Unknown, 11/05/14) Sulfa (Sulfonamide Antibiotics) (Unverified Allergy, Unknown, 01/22/16) Home Medications Cephalexin 500 Mg Capsule, 500 MG PO TID Prescribed by: RENARD MEYER on 09/26/18 170 Cyclobenzaprine HCl 10 Mg Tablet, 10 MG PO Q8H PRN for SPASMS Prescribed by: CHANCE PEREZ on 01/23/161954 Hydrocodone Bit/Acetaminophen 1 Each Tablet, 1 TAB PO Q4H PRN for PAIN Prescribed by: RASHAD BORJA on 06/29/15711 Hydrocodone Bit/Acetaminophen 1 Each Tablet, 1-2 EACH PO Q6H PRN for PAIN Prescribed by: CHANCE PEREZ on 01/23/161954 Ibuprofen 600 Mg Tablet, 600 MG PO Q6H Prescribed by: RASHAD BORJA on 06/29/15711 Prednisone 20 Mg Tab, 40 MG PO DAILY Prescribed by: CHANCE PEREZ on 01/23/161954 Vit/Fe Fumarate/Fa 1 Each Tablet, 1 EACH PO DAILY, (Reported) Patient Home Medication List Home Medication List Reviewed: Yes Review of Systems Review of Systems Constitutional: see HPI, fever EENTM: no symptoms reported Respiratory: cough Cardiovascular: no symptoms reported Gastrointestinal: other (Mild abdominal cramping) Genitourinary: no symptoms reported : Yes Musculoskeletal: joint pain, other (Body aches) Psychiatric/Neurological: Headache All Other Systems Reviewed Negative Unless Noted: Yes Past Hofxjlo-Ixemib-Dvamnc Hx Patient Social History Tobacco Use?: No Substance use?: No Alcohol Use?: Yes Alcohol Frequency: Once in a while Pt feels they are or have been: No Immunizations Up To Date Tetanus Booster (TDap): Less than 5yrs Past Medical History Surgeries: Yes (ORAL, TUBES IN EARS) Ear Surgery, Tonsillectomy Respiratory: Yes Asthma Currently Using BIPAP: No Cardiac: No Neurological: No Reproductive Disorders: No Genitourinary: No Gastrointestinal: No Musculoskeletal: No Endocrine: No Cancer: No Psychosocial: Yes ADD/ADHD Integumentary: No Blood Disorders: No Adverse Reaction/Blood Tranf: No Family Medical History Patient reports no known family medical history. Physical Exam Vital Signs Vital Signs - First Documented 05/03/21 10:14 O2 Delivery Room Air Capillary Refill : Height, Weight, BMI Height: 5'8.00" Weight: 130lbs. 0.0oz. 58.372146ww; 19.8 BMI Method:Stated General Appearance: No Apparent Distress, WD/WN Eyes: Bilateral Eye Normal Inspection, Bilateral Eye PERRL HEENT: PERRL/EOMI Neck: Normal Inspection, Non Tender, Supple Respiratory: Lungs Clear, Normal Breath Sounds, No Accessory Muscle Use, No Respiratory Distress Cardiovascular: Regular Rate, Rhythm Gastrointestinal: Normal Bowel Sounds, Non Tender, Soft Extremity: Normal Capillary Refill, Normal Inspection, Normal Range of Motion, No Calf Tenderness, No Pedal Edema Neurologic/Psychiatric: Alert, Oriented x3, No Motor/Sensory Deficits, Normal Mood/Affect Skin: Normal Color, Warm/Dry Progress/Results/Core Measures Suspected Sepsis SIRS Temperature: Pulse: Respiratory Rate: Blood Pressure / Mean: Results/Orders My Orders Orders - ALIYA DANIELS MD Acetaminophen Tablet (Tylenol Tablet) (05/03/21 10:45) Normal Saline Bolus 1,000ml (05/03/21 10:45) Covid 19 Inhouse Test (05/03/21 10:37) Vital Signs/I&O 05/03/21 10:14 O2 Delivery Room Air Capillary Refill : Departure Impression Primary Impression: COVID-19 Disposition: 01 HOME, SELF-CARE Condition: Stable Departure-Patient Inst. Decision time for Depature: 10:42 Referrals: NO,LOCAL PHYSICIAN (PCP/Family) Primary Care Physician Patient Instructions: COVID-19 and (DC) ALIYA DANIELS MD May 03, 2021 10:43
[2021-05-03] MEDS ORDERED: NS IV 1000 ML 1,000 ML IV SCH (10:45)
[2021-05-03] MEDS ORDERED: ACETAMINOPHEN 500 MG TAB (TYLENOL) PO ONE (10:45)
[2021-05-03 12:39] VITALS: BP 114/82
== END 2021-05-03 12:39 | disposition home or self-care (01) ==
LOC: EDUNIT# 10:05 → ER 10:07
DX: O98.511 Other viral diseases complicating pregnancy, first trimester (principal); U07.1 COVID-19; Z79.52 Long term (current) use of systemic steroids; Z3A.01 Less than 8 weeks gestation of pregnancy
CPT/HCPCS: 87636

== ENCOUNTER 2021-05-07 16:43 | Emergency (ER) | payer MEDICAID ==
[~2021-05-07] VITALS: Ht 172 cm; Wt 62.1 kg
[2021-05-07] MEDS ORDERED: NS IV 1000 ML 1,000 ML IV ONE (18:00)
--- NOTE | 2021-05-07 18:10 | ED General ---
General Chief Complaint: Respiratory Problems Stated Complaint: DEHYDRATED, DIZZINESS, COVID POSITIVE / 6 WEEKS MT Source of Information: Patient Exam Limitations: No Limitations History of Present Illness Date Seen by Provider: May 07, 2021 Time Seen by Provider: 17:55 Initial Comments This is a well-appearing 26-year-old female who presents to the ER with complaints of feeling dehydrated. States that she is 6 weeks and has not been drinking as much fluid as before COVID. Denies headache, fever, chills, cough, shortness of breath, chest pain, nausea, vomiting, abdominal natalia n. No other symptoms other than "feeling dehydrated". Allergies and Home Medications Allergies Coded Allergies: Penicillins (Unverified Allergy, Unknown, 11/05/14) Sulfa (Sulfonamide Antibiotics) (Unverified Allergy, Unknown, 01/22/16) Home Medications Cephalexin 500 Mg Capsule, 500 MG PO TID Prescribed by: RENARD MEYER on 09/26/18 170 Cyclobenzaprine HCl 10 Mg Tablet, 10 MG PO Q8H PRN for SPASMS Prescribed by: CHANCE PEREZ on 01/23/161954 Hydrocodone Bit/Acetaminophen 1 Each Tablet, 1 TAB PO Q4H PRN for PAIN Prescribed by: RASHAD BORJA on 06/29/15 0712 Hydrocodone Bit/Acetaminophen 1 Each Tablet, 1-2 EACH PO Q6H PRN for PAIN Prescribed by: CHANCE PEREZ on 01/23/161954 Ibuprofen 600 Mg Tablet, 600 MG PO Q6H Prescribed by: RASHAD BORJA on 06/29/15 0712 Prednisone 20 Mg Tab, 40 MG PO DAILY Prescribed by: CHANCE PEREZ on 01/23/161954 Vit/Fe Fumarate/Fa 1 Each Tablet, 1 EACH PO DAILY, (Reported) Patient Home Medication List Home Medication List Reviewed: Yes Review of Systems Review of Systems Constitutional: see HPI EENTM: see HPI Respiratory: no symptoms reported Cardiovascular: no symptoms reported Gastrointestinal: no symptoms reported Genitourinary: no symptoms reported Musculoskeletal: no symptoms reported Skin: no symptoms reported Psychiatric/Neurological: No Symptoms Reported Hematologic/Lymphatic: No Symptoms Reported Immunological/Allergic: no symptoms reported Past Kphabfz-Ngalzc-Gwwpjq Hx Immunizations Up To Date Tetanus Booster (TDap): Less than 5yrs Past Medical History Surgeries: Yes (ORAL, TUBES IN EARS) Ear Surgery, Tonsillectomy Respiratory: Yes Asthma Currently Using BIPAP: No Cardiac: No Neurological: No Reproductive Disorders: No Genitourinary: No Gastrointestinal: No Musculoskeletal: No Endocrine: No Cancer: No Psychosocial: Yes ADD/ADHD Integumentary: No Blood Disorders: No Adverse Reaction/Blood Tranf: No Family Medical History Patient reports no known family medical history. Physical Exam Vital Signs Vital Signs - First Documented 05/07/21 17:51 Temp 36.8 Pulse 67 Resp 20 B/P (MAP) 115/80 (92) Pulse Ox 100 O2 Delivery Room Air Capillary Refill : Height, Weight, BMI Height: 5'8.00" Weight: 130lbs. 0.0oz. 58.543144sn; 19.00 BMI Method:Stated General Appearance: No Apparent Distress, WD/WN Eyes: Bilateral Eye Normal Inspection, Bilateral Eye PERRL, Bilateral Eye EOMI HEENT: PERRL/EOMI, TMs Normal, Normal ENT Inspection, Pharynx Normal, Moist Mucous Membranes Neck: Full Range of Motion, Non Tender, Supple Respiratory: Lungs Clear, Normal Breath Sounds, No Accessory Muscle Use Cardiovascular: Regular Rate, Rhythm, Normal Peripheral Pulses Gastrointestinal: Normal Bowel Sounds, Non Tender, Soft Back: Normal Inspection, No Vertebral Tenderness Extremity: Normal Inspection, Normal Range of Motion Neurologic/Psychiatric: Alert, Oriented x3, No Motor/Sensory Deficits, Normal Mood/Affect Skin: Normal Color, Warm/Dry Progress/Results/Core Measures Suspected Sepsis SIRS Temperature: Pulse: Respiratory Rate: Blood Pressure / Mean: Results/Orders My Orders Orders - BARBARA BUTT APRN Ed Iv/Invasive Line Start (05/07/21 17:48) Ns Iv 1000 Ml (Sodium Chloride 0.9%) (05/07/21 18:00) Medications Given in ED Vital Signs/I&O 05/07/21 05/07/21 17:51 19:15 Temp 36.8 36.8 Pulse 67 67 Resp 20 20 B/P (MAP) 115/80 (92) 115/80 (92) Pulse Ox 100 100 O2 Delivery Room Air Room Air Capillary Refill : Progress Note : Progress Note Given 1 liter IVF. Reports feeling much improved. Reviewed discharge POC and she is agreeable with plan. Departure Impression Primary Impression: Dehydration Additional Impressions: COVID-19 Disposition: 01 HOME, SELF-CARE Condition: Improved Departure-Patient Inst. Decision time for Depature: 18:57 Referrals: NO,LOCAL PHYSICIAN (PCP/Family) Primary Care Physician Patient Instructions: Recovery After COVID-19, Taking Vvki-qwv-Jliosyn Medicines During Add. Discharge Instructions: Plan: 1. Drink plenty of fluids to stay hydrated. 2. May take Tylenol as needed for pain/fever. 3. Return for any new, concerning, or worsening symptoms. All discharge instructions reviewed with patient and/or family. Voiced understanding. BARBARA BUTT PHOTO STYLIST May 07, 2021 18:10
[2021-05-07 19:15] VITALS: BP 115/80
== END 2021-05-07 19:15 | disposition home or self-care (01) ==
LOC: EDUNIT# 16:43 → ER 16:47
DX: O98.511 Other viral diseases complicating pregnancy, first trimester (principal); U07.1 COVID-19; E86.0 Dehydration; Z3A.01 Less than 8 weeks gestation of pregnancy; Z79.52 Long term (current) use of systemic steroids

== ENCOUNTER → 2021-05-21 | Outpatient (CLI) | payer MEDICAID ==
--- NOTE | 2021-05-21 16:10 | Diagnostic Imaging Report ---
PROCEDURE: US OB SINGLE FETUS <14 WKS. TECHNIQUE: Multiple real-time grayscale images were obtained over the gravid uterus in various projections. INDICATION: size and dates. COMPARISON: None. FINDINGS: A gestational sac is seen within the endometrium. A pole is present with a crown-rump length of 1.94 cm which corresponds to 8 weeks and 4 days. A yolk sac is present. heart rate is detected measuring 165 bpm. No significant subchorionic hemorrhage is seen. The uterus measures 10.2 x 6.9 x 6.7 cm. The ovaries are nonvisualized. No significant free fluid is seen in the pelvis. IMPRESSION: Single living intrauterine gestation with an estimated gestational age of 8 weeks and 4 days by today's ultrasound. Dictated by: Dictated on workstation # [id number]
== END ==
LOC: RAD 14:30
PROVIDERS: ATTEND Family Medicine
DX: Z34.91 Encounter for supervision of normal pregnancy, unspecified, first trimester (principal); Z3A.08 8 weeks gestation of pregnancy
CPT/HCPCS: 76801

== ENCOUNTER → 2021-07-29 | Outpatient (CLI) | payer MEDICAID ==
--- NOTE | 2021-07-29 12:44 | Diagnostic Imaging Report ---
INDICATION: TECHNIQUE: Multiple real-time grayscale images were obtained over the gravid uterus. COMPARISON: None FINDINGS: Single live intrauterine fetus active and variable in presentation. Amniotic fluid index is normal. Placenta posterior and not low. heart rate of 140 bpm. anatomical survey was normal with structures visualized being kidneys, bladder, stomach, brain and ventricles, four-chamber heart, three-vessel cord, cord insertion and spine. Fetus was active. Maternal adnexa was normal. IMPRESSION: 19 week 0 day gestational size by current biometric measurements with sonographic EDC of 12/23/2021. No abnormalities were demonstrated. Biometrical measurements are as follows: Biparietal 4.13 cm, age 18 weeks 4 days. Head circumference 15.43 cm, age 18 weeks 3 days. Abdominal circumference 12.89 cm, age 18 weeks 4 days. Femur length 3.28 cm, age 20 weeks 2 days. Sonographic estimate age: 19 weeks 0 days. Sonographic estimated date of delivery: 12-23-2021. Estimated Weight: 279 gm (+/- 41 gm). LMP percentile: 87%. heart rate: 140 beats per minute. number: 1 of 1. IMPRESSION: Dictated by: Dictated on workstation # [id number]
== END ==
LOC: RAD 09:38
PROVIDERS: ATTEND Family Medicine
DX: Z34.92 Encounter for supervision of normal pregnancy, unspecified, second trimester (principal); Z3A.19 19 weeks gestation of pregnancy
CPT/HCPCS: 76805

== ENCOUNTER 2021-12-20 05:52 | Inpatient (IN) | payer MEDICAID ==
[~2021-12-20] VITALS: Ht 172.7 cm; Wt 85.7 kg
[2021-12-20] VITALS (40 sets, daily range): BP systolic 84–121; BP diastolic 48–77
[~2021-12-20 05:52] MED LIST changes: +CYCL10TA25 PO; -CYCL10TA9 PO
[2021-12-20] MEDS ORDERED: D5 LR IV SOLUTION 1,000 ML IV SCH (06:15)
--- NOTE | 2021-12-20 06:33 | History & Physical-OB ---
OB - Chief Complaint & HPI Date/Time Date of Admission: Date of Admission: Dec 20, 2021 at 05:52 Date seen by a Provider: Dec 20, 2021 Time Seen by a Provider: 06:30 Chief Complaint/History OB-Reason for Admission/Chief: Induction of Labor Hx : 2 Hx Para: 1 Expected Date of Delivery: Dec 27, 2021 Gestational Age in Weeks: 39 Gestational Age in Days: 0 Admission Nurse Assessment Rev: Yes History of Labs GBS positive at 36 weeks gestation Allergies and Home Medications Allergies Coded Allergies: Penicillins (Unverified Allergy, Unknown, 11/05/14) Sulfa (Sulfonamide Antibiotics) (Unverified Allergy, Unknown, 01/22/16) Patient Home Medication List Home Medication List Reviewed: Yes Vit/Fe Fumarate/Fa ( Vitamins Tablet) 1 Each Tablet, 1 EACH PO DAILY, (Reported) Entered as Reported by: PAULA MENDEZ on 02/23/15 0602 Last Action: Converted Discontinued Medications Cephalexin (Keflex) 500 Mg Capsule, 500 MG PO TID Discontinued Reason: No Longer Taking Prescribed by: RENARD MEYER on 09/26/18 1707 Last Action: Discontinued Cyclobenzaprine HCl (Cyclobenzaprine HCl) 10 Mg Tablet, 10 MG PO Q8H PRN for SPASMS Discontinued Reason: No Longer Taking Prescribed by: CHANCE PEREZ on 01/23/161954 Last Action: Discontinued Hydrocodone Bit/Acetaminophen (Lortab 5 Mg Tablet) 1 Each Tablet, 1 TAB PO Q4H PRN for PAIN Discontinued Reason: No Longer Taking Prescribed by: RASHAD BORJA on 06/29/15711 Last Action: Discontinued Hydrocodone Bit/Acetaminophen (Lortab 5 Mg Tablet) 1 Each Tablet, 1-2 EACH PO Q6H PRN for PAIN Discontinued Reason: No Longer Taking Prescribed by: CHANCE PEREZ on 01/23/161954 Last Action: Discontinued Ibuprofen (Ibuprofen) 600 Mg Tablet, 600 MG PO Q6H Discontinued Reason: No Longer Taking Prescribed by: RASHAD BORJA on 06/29/15711 Last Action: Discontinued Prednisone (Prednisone) 20 Mg Tab, 40 MG PO DAILY Discontinued Reason: No Longer Taking Prescribed by: CHANCE PEREZ on 01/23/161954 Last Action: Discontinued OB - History Hx of Present Care: Yes Ultrasounds: Normal mid trimester US Obstetrical Complications: None Medical Complications: None Delivery History Hx Blood Disorders: No Adverse Rxn to Tranfusion: No Patient Past Medical History No chronic medical problems. Social History/Family History 2nd Hand Smoke Exposure: No Immunizations Tetanus Booster (TDap): Less than 5yrs OB - Admission Exam Physical Exam HEENT: Moist Membranes Heart: Rhythm Normal Lungs: Clear Abdomen: Gravid Cervical Dilatation: 2cm Effacement: 75% Station: -3 Membranes: Intact Heart Rate: 130's Accelerations: Accelerations Present Short Term Variability: Present Contractions on Admission: >10 Minutes Apart Intensity: Mild Johnston Scoring Tool (Modified) Dilation (cm): 1-2cm (1) Effacement (%): 51-79% (2) Descent/Station: -3 (0) Cervix Consistency: Medium(1) Cervix Position: Middle/Mid-Position (1) Add 1 point for: Each previous vaginal delivery (1) Johnston Score: 6 OB - Assessment/Plan/Diagnosis Assessment Assessment: induction of labor Admission Dx 1. IUP at term 39 weeks gestation 2. GBS positive Admission Status: Inpatient Order (span 2 midnights) Reason for Inpatient Admission: Induction of labor Plan Plan: Induction Induction Method: AROM Other Plan -Epidural -pitocin -GBS prophlaxis with cleocin RASHAD BORJA MD Dec 20, 2021 06:33
[2021-12-20 06:37] LABS: BASOPHILS % (AUTO) 1 % (0-10); EOSINOPHILS # (AUTO) 0.1 10^3/uL (0.0-0.3); EOSINOPHILS % (AUTO) 1 % (0-10); HEMATOCRIT 34 % (35-52); HEMOGLOBIN 11.4 g/dL (11.5-16.0); LYMPHOCYTES # (AUTO) 1.7 10^3/uL (1.0-4.0); LYMPHOCYTES % (AUTO) 20 % (12-44); MEAN CORPUSCULAR HEMOGLOBIN 30 pg (25-34); MEAN CORPUSCULAR HGB CONC 34 g/dL (32-36); MEAN CORPUSCULAR VOLUME 89 fL (80-99); MEAN PLATELET VOLUME 10.4 fL (9.0-12.2); MONOCYTES # (AUTO) 0.6 10^3/uL (0.0-1.0); MONOCYTES % (AUTO) 7 % (0-12); NEUTROPHILS # (AUTO) 5.9 10^3/uL (1.8-7.8); NEUTROPHILS % (AUTO) 70 % (42-75); PLATELET COUNT 146 10^3/uL (130-400); WHITE BLOOD COUNT 8.4 10^3/uL (4.3-11.0)
[2021-12-20] MEDS ORDERED: OXYTOCIN PRE-MIX DRIP 500 ML IV SCH ×2 (06:45→13:15)
[2021-12-20] MEDS ORDERED: MINERAL OIL CONCENTRATE 99.9% 15 ML UDC TOP PRN (07:00)
[2021-12-20] MEDS ORDERED: CLINDAMYCIN 900 MG/50 ML IVPB 50 ML IV ONE (07:08)
[2021-12-20] MEDS ORDERED: fentaNYL 2 mcg/ml BUPIVA 0.125 100 ML ONE (07:52)
[2021-12-20] MEDS ORDERED: fentaNYL INJ 100 MCG/2 ML AMP ONE (08:40)
[2021-12-20] MEDS ORDERED: LACTATED RINGERS 1,000 ML IV ONE (10:00)
[2021-12-20] MEDS ORDERED: fentaNYL 2 mcg/ml BUPIVA 0.125 100 ML IV SCH (10:00)
[2021-12-20] MEDS ORDERED: ONDANSETRON 4 MG/2 ML (SDV) Z0FRAN IV PRN (10:00)
[2021-12-20] MEDS ORDERED: fentaNYL INJ 100 MCG/2 ML AMP INJ ONE (10:00)
[2021-12-20] MEDS ORDERED: AMPICILLIN FOR IV USE 1,000 MG in NS (IVPB) 50 ML IV SCH (10:15)
[2021-12-20] MEDS ORDERED: TETANUS,DIPTH,PERTUSS P/F (BOOSTRIX) 0.5 ML VIAL IM ONE (13:15)
[2021-12-20] MEDS ORDERED: BENZOCAINE/MENTHOL (DERMOPLAST) 56 ML CAN TP PRN (13:15)
[2021-12-20] MEDS ORDERED: WITCH HAZEL(TUCKS) 40 EA JAR TOP PRN (13:15)
[2021-12-20] MEDS ORDERED: NALOXONE 0.4 MG/ML 1 ML (NARCAN) VIAL IV PRN (13:15)
[2021-12-20] MEDS ORDERED: MEASLES,MUMPS,RUBELLA 1 EA INJ SQ ONE (13:15)
--- NOTE | 2021-12-20 13:18 | OB Labor & Delivery Record ---
L&D History Date of Service Date of Service: Dec 20, 2021 History Expected Date of Delivery: Dec 27, 2021 Gestational Age in Weeks: 39 Hx : 2 Hx Para: 2 Complications Events: Routine care Operative Indications (Cesarea: N/A-Vaginal Delivery Intrapartal Events: None Other Complications GBS positive by 36 week perineal check. Treated with 1 dose of cleocin 900mg L&D Stage1 Stage One Onset of Labor - Date: Dec 20, 2021 Onset of Labor - Time: 06:37 Monitors and Tracing Monitor Mode: Internal Heart Rate: 125 Monitor Accelerations: Uniform Monitor Decelerations: None (overall) Station: 0 [facility] Variability: Average (6-10) Short Term Variability: Present Presentation: Vertex Vital Signs VS - Last 72 Hours, by Label 12/20/21 12/20/21 12/20/21 12/20/21 06:56 07:30 07:45 08:00 Temp 36.7 36.6 Pulse 94 88 84 86 Resp 16 18 18 18 B/P (MAP) 100/59 (73) 115/56 (75) 115/67 (83) Pulse Ox 99 O2 Delivery Room Air Room Air Room Air Room Air 12/20/21 12/20/21 12/20/21 12/20/21 08:15 08:24 08:28 08:30 Pulse 84 85 87 96 Resp 18 18 18 18 B/P (MAP) 105/57 (73) 105/57 (73) 115/69 (84) 118/73 (88) Pulse Ox 100 100 100 O2 Delivery Room Air Room Air Room Air Room Air 12/20/21 12/20/21 12/20/21 12/20/21 08:31 08:32 08:34 08:36 Pulse 95 91 96 91 Resp 18 18 18 18 B/P (MAP) 109/71 (84) 107/73 (84) 113/71 (85) 121/70 (87) Pulse Ox 100 100 99 99 O2 Delivery Room Air Room Air Room Air Room Air 12/20/21 12/20/21 12/20/21 12/20/21 08:42 08:45 08:50 09:00 Temp 36.5 Pulse 107 83 82 Resp 18 18 18 B/P (MAP) 107/57 (74) 107/60 (76) 84/49 (61) 119/66 (83) Pulse Ox 99 99 100 O2 Delivery Room Air Room Air Room Air 12/20/21 12/20/21 12/20/21 12/20/21 09:15 09:30 09:45 10:00 Temp 36.0 Pulse 75 73 78 75 Resp 18 18 18 18 B/P (MAP) 109/61 (77) 106/59 (75) 99/59 (72) 97/59 (72) Pulse Ox 98 99 99 100 O2 Delivery Room Air Room Air Room Air Room Air 12/20/21 10:15 Pulse 93 Resp 18 B/P (MAP) 85/48 (60) Pulse Ox 100 O2 Delivery Room Air Signs of Distress by FHT Signs of Distress no Rupture of Membranes Spontaneous Ruture of Membrane: No Amniotic Membrane Rupture Time: 0637 Amniotic Membrane Fluid Desc.: Clear Vaginal Bleeding Description: None Induction/Anesthesia Epidural Cath Placement - Time: 0831 L&D Stage2 Stage Two Stage II Date: Dec 20, 2021 Stage II Time: 12:37 Monitors and Tracing Monitor Mode: Internal Heart Rate: 125 Monitor Accelerations: Uniform Monitor Decelerations: None Nursing Secretary Variability: Average (6-10) Position: Left Occiput Anterior Presentation: Vertex Signs of Distress by FHT Signs of Distress no Cord Descript/Complications Cord Vessel Description: 3 Vessels Delivery Type Delivery Method: Spontaneous Vaginal Anterior Shoulder: Left Episiotomy/Perineal Laceration Laceraction(s)/Extensions: Yes Episiotomy Description: Midline Sutures Used: Vicryl Condition of Infant Delivery 1 minute Comment: 9 5 minute Comment: 9 Condition of Condition of Infant: Living Exam: No Observed Abnormalities Resuscitation Resuscitation: N/A - Spontaneous Resp L&D Stage3 Stage Three Stage III Date: Dec 20, 2021 Stage III Time: 12:43 Pictocin Pitocin Administration mu/min: 4 Pitocin ml/hr: 4 Placenta Delivery Placenta Delivery: Spontaneous Delivery Summary Summary Estimated blood loss (mL): 200 Condition of Delivery Examined: Cervix Examined Post Hemorrhage: No Intervention Required none RASHAD BORJA MD Dec 20, 2021 13:18
[2021-12-20] MEDS ORDERED: CLINDAMYCIN 900 MG/50 ML IVPB 50 ML IV SCH ×2 (14:00)
[2021-12-20] MEDS ORDERED: CATHETER FLUSH 10 ML SYR IV SCH ×2 (14:00)
[2021-12-20] MEDS: IBUPROFEN 600 MG (MOTRIN) TAB PO SCH ×2 (14:07→20:51)
[2021-12-20] MEDS ORDERED: ACETAMINOPHEN 500 MG TAB (TYLENOL) PO PRN (14:30)
[2021-12-20] MEDS ORDERED: ACETAMINOPHEN 500 MG TAB (TYLENOL) PO SCH (18:00)
[2021-12-20] MEDS: DOCUSATE SODIUM 100 MG (COLACE) CAP PO SCH (20:51)
[2021-12-21 00:40] VITALS: BP 111/53
[2021-12-21 03:38] VITALS: BP 105/59
[2021-12-21] MEDS: IBUPROFEN 600 MG (MOTRIN) TAB PO SCH ×3 (03:38→15:35)
[2021-12-21 06:11] LABS: BASOPHILS % (AUTO) 0 % (0-10); EOSINOPHILS % (AUTO) 0 % (0-10); HEMATOCRIT 31 % (35-52); HEMOGLOBIN 10.3 g/dL (11.5-16.0); LYMPHOCYTES # (AUTO) 1.7 10^3/uL (1.0-4.0); LYMPHOCYTES % (AUTO) 18 % (12-44); MEAN CORPUSCULAR HEMOGLOBIN 30 pg (25-34); MEAN CORPUSCULAR HGB CONC 33 g/dL (32-36); MEAN CORPUSCULAR VOLUME 90 fL (80-99); MEAN PLATELET VOLUME 10.7 fL (9.0-12.2); MONOCYTES # (AUTO) 0.6 10^3/uL (0.0-1.0); MONOCYTES % (AUTO) 7 % (0-12); NEUTROPHILS % (AUTO) 74 % (42-75); PLATELET COUNT 135 10^3/uL (130-400); WHITE BLOOD COUNT 9.5 10^3/uL (4.3-11.0)
[2021-12-21] MEDS ORDERED: PRENATAL VITAMIN 1 EA TAB PO SCH (07:00)
[2021-12-21] MEDS ORDERED: FE FUMARATE PO SCH (09:00)
[2021-12-21] MEDS ORDERED: [UNRECOGNIZED DRUG - OTHER] PO SCH (09:00)
[2021-12-21] MEDS ORDERED: PRENATAL VIT PO SCH (09:00)
[2021-12-21] MEDS: DOCUSATE SODIUM 100 MG (COLACE) CAP PO SCH (10:12)
[2021-12-21 10:13] VITALS: BP 113/70
[2021-12-21] MEDS ORDERED: IBUP-844 PO (13:47)
--- NOTE | 2021-12-21 13:49 | Short Stay Summary ---
Discharge Summary Hospital Course Final Diagnosis: s/p at 39wk; laceration repair Hospital Course Date of Admission: Dec 20, 2021 at 05:52 Admission Diagnosis : 1. at 39 week 2. GBS+ Family Physician/Provider: Rashad Borja MD Date of Discharge: 12/21/21 Discharge Diagnosis: 1. s/p at 39 wk 2. laceration repair 3. GBS+ - antibiotic prophylaxis given prior to delivery Hospital Course: Routine course. Labs and Pending Lab Test: Laboratory Tests 12/21/21 05:58: White Blood Count 9.5, Red Blood Count 3.44L, Hemoglobin 10.3L, Hematocrit 31L, Mean Corpuscular Volume 90, Mean Corpuscular Hemoglobin 30, Mean Corpuscular Hemoglobin Concent 33, Red Cell Distribution Width 12.6, Platelet Count 135, Mean Platelet Volume 10.7, Immature Granulocyte % (Auto) 1, Neutrophils (%) (Auto) 74, Lymphocytes (%) (Auto) 18, Monocytes (%) (Auto) 7, Eosinophils (%) (Auto) 0, Basophils (%) (Auto) 0, Neutrophils # (Auto) 7.0, Lymphocytes # (Auto) 1.7, Monocytes # (Auto) 0.6, Eosinophils # (Auto) 0.0, Basophils # (Auto) 0.0, I mmature Granulocyte # (Auto) 0.1 Home Meds Active Reported Vitamins Tablet ( Vit/Fe Fumarate/Fa) 1 Each Tablet 1 Each PO DAILY Assessment/Pt Instructions Follow up with Dr. Borja in 6wk. Discharge Instructions Discharge Diet: No Restrictions Discharge Physical Examination General Appearance: Alert, Oriented X3, Cooperative Psych/Mental Status: Mood NL Allergies: Coded Allergies: Penicillins (Unverified Allergy, Unknown, 11/05/14) Sulfa (Sulfonamide Antibiotics) (Unverified Allergy, Unknown, 01/22/16) Copy Copies To 1: RASHAD BORJA MD Discharge Summary Date of Admission Dec 20, 2021 at 05:52 Date of Discharge AZAM MAY DO Dec 21, 2021 13:49
[2021-12-21 15:37] VITALS: BP 116/71
--- NOTE | 2021-12-21 17:43 | Anesthesia-Regional Post-Op ---
Regional Patient Condition Mental Status: Alert, Oriented x3 Circulation: Same as Pre-Op Headache: Absent Sensation: Full Recovery Motor Block: Absent Post Op Complications Complications None Follow Up Care/Instructions Patient Instructions None needed. Anesthesia/Patient Condition Patient is doing well, no complaints, stable vital signs, no apparent adverse anesthesia problems. No complications reported per nursing. VANESSA MATOS CRNA Dec 21, 2021 17:43
== END 2021-12-21 16:10 | disposition home or self-care (01) | DRG 807 ==
LOC: LDRP 05:52 → WS 14:10 → LDRP 14:10
PROVIDERS: ADMIT Family Medicine; ATTEND Family Medicine
PROC: 10E0XZZ Delivery of Products of Conception, External Approach (ICD-10-PCS; principal; 2021-12-20)
PROC: 0W8NXZZ Division of Female Perineum, External Approach (ICD-10-PCS; 2021-12-20)
PROC: 10907ZC Drainage of Amniotic Fluid, Therapeutic from Products of Conception, Via Natural or Artificial Opening (ICD-10-PCS; 2021-12-20)
DX: O99.824 Streptococcus B carrier state complicating childbirth (principal); Z37.0 Single live birth; Z3A.39 39 weeks gestation of pregnancy; Z88.0 Allergy status to penicillin; Z88.2 Allergy status to sulfonamides
CPT/HCPCS: 36415; 85025; 86780; 86850; 86900; 86901